=== PATIENT | male | born 1965 | race Two or more races ===

== ENCOUNTER → 2017-07-21 | Outpatient (REF) | payer OTHER | LOC: M SFHCLERA 14:27 | PROVIDERS: ATTEND Nurse Practitioner Family | DX: J02.9 Acute pharyngitis, unspecified (principal) ==

== ENCOUNTER → 2018-01-22 | Outpatient (CLI) | payer OTHER | LOC: M WUC 13:35 | DX: M25.551 Pain in right hip (principal); M25.552 Pain in left hip | CPT/HCPCS: 73502 ==

== ENCOUNTER → 2018-09-07 | Outpatient (REF) | payer OTHER | LOC: M SFHCLERA 11:33 | DX: L02.11 Cutaneous abscess of neck (principal) | CPT/HCPCS: 87186 ==

== ENCOUNTER 2018-12-25 08:37 | Day surgery (SDC) | payer OTHER ==
[~2018-12-25] VITALS: Ht 177.8 cm; Wt 127.0 kg
[~2018-12-25 08:37] MED LIST: LIDOCAINE 2% INJ 100 MG/5 ML SDV (FOR ANES.) As Ordered ONE; NS 1,000 ML IV ONE; PROPOFOL 200 MG/20 ML VIAL As Ordered ONE; SERT-155 PO
--- NOTE | 2018-12-25 10:02 | ROOR ---
Patient Name: Osiel Huggins Procedure Date: 12/25/2018 9:39 AM Date of : 1965 Age: 53 Room: [facility] Gender: Male Note Status: Finalized Procedure: Colonoscopy Indications: Screening for colorectal malignant neoplasm Providers: Long Johnson Jr, MD Referring MD: Richard Jacques MD Requesting Provider: Medicines: Propofol per Anesthesia Complications: No immediate complications. Procedure: Pre-Anesthesia Assessment: - Prior to the procedure, a History and Physical was performed, and patient medications and allergies were reviewed. The patient is competent. The risks and benefits of the procedure and the sedation options and risks were discussed with the patient. All questions were answered and informed consent was obtained. Patient identification and proposed procedure were verified by the physician and the nurse in the pre-procedure area and in the procedure room. Mental Status Examination: alert and oriented. Airway Examination: normal oropharyngeal airway and neck mobility. Respiratory Examination: clear to auscultation. CV Examination: normal. ASA Grade Assessment: II - A patient with mild systemic disease. After reviewing the risks and benefits, the patient was deemed in satisfactory condition to undergo the procedure. The anesthesia plan was to use moderate sedation / analgesia (conscious sedation). Immediately prior to administration of medications, the patient was re-assessed for adequacy to receive sedatives. The heart rate, respiratory rate, oxygen saturations, blood pressure, adequacy of pulmonary ventilation, and response to care were monitored throughout the procedure. The physical status of the patient was re-assessed after the procedure. The Colonoscope was introduced through the anus and advanced to the cecum, identified by appendiceal orifice and ileocecal valve. The colonoscopy was performed without difficulty. The patient tolerated the procedure well. The quality of the bowel preparation was adequate. Findings: The sigmoid colon, cecum, appendiceal orifice and ileocecal valve appeared normal. Five polyps were found in the rectum, recto-sigmoid colon, descending colon, transverse colon and ascending colon. The polyps were small in size. These polyps were removed with a cold snare. Resection and retrieval were complete. Impression: - The sigmoid colon, cecum, appendiceal orifice and ileocecal valve are normal. - Five small polyps in the rectum, at the recto-sigmoid colon, in the descending colon, in the transverse colon and in the ascending colon, removed with a cold snare. Resected and retrieved. Recommendation: - Discharge patient to home (ambulatory). - Discharge patient to home (ambulatory). - Repeat colonoscopy in 5 years for surveillance. Long Johnson MD Long Johnson Jr, MD 12/25/2018 10:02:04 AM Electronically signed by Long Johnson Jr, MD Number of Addenda: 0 Note Initiated On: 12/25/2018 9:39 AM Estimated Blood Loss: Estimated blood loss: none.
[2018-12-25 10:15] VITALS: BP 148/92
== END 2018-12-25 10:37 | disposition home or self-care (01) ==
LOC: M OPP 08:37
PROVIDERS: ATTEND Surgery
DX: K62.1 Rectal polyp (principal); D12.7 Benign neoplasm of rectosigmoid junction; D12.4 Benign neoplasm of descending colon; D12.3 Benign neoplasm of transverse colon; D12.2 Benign neoplasm of ascending colon; Z12.11 Encounter for screening for malignant neoplasm of colon

== ENCOUNTER 2019-02-08 15:41 | Inpatient (IN) | payer OTHER ==
[~2019-02-08] VITALS: Ht 180.3 cm; Wt 127.6 kg
[~2019-02-08 15:41] MED LIST changes: -LIDOCAINE 2% INJ 100 MG/5 ML SDV (FOR ANES.) As Ordered ONE; -NS 1,000 ML IV ONE; -PROPOFOL 200 MG/20 ML VIAL As Ordered ONE
[2019-02-08 16:12] LABS: BASO % 0.4 % (0.0-1.0); EOS % 0.2 % (0.0-3.0); HEMATOCRIT 46.4 % (42.0-52.0); HEMOGLOBIN 16.1 g/dl (13.5-17.5); LYMPH # 1.4 10^3/uL (1.5-4.5); LYMPH % 14.7 % (24.0-44.0); MEAN CORPUSCULAR HGB CONC 34.7 g/dl (32.0-36.5); MEAN CORPUSCULAR VOLUME 98.1 fl (80.0-96.0); MONO % 11.2 % (0.0-5.0); NEUTROPHILS # 6.7 10^3/uL (1.8-7.7); NEUTROPHILS % 73.1 % (36.0-66.0); PLATELET COUNT, AUTOMATED 134 10^3/uL (150-450); RED BLOOD COUNT 4.73 10^6/uL (4.30-6.10); WHITE BLOOD COUNT 9.2 10^3/uL (4.0-10.0)
[2019-02-08 16:26] LABS: INR 1.07
--- NOTE | 2019-02-08 16:27 | REP ---
Portable chest x-ray: Sitting AP view. History: Dyspnea and cough. Comparison study: April 13, 2011. Findings: EKG monitoring electrodes overlie the chest. Heart size is normal. Pulmonary vasculature is not increased. There are granulomatous calcifications in the right lung unchanged. Pleural angles are sharp. No significant bony abnormality. Impression: No active disease. Electronically Signed by Bebeto Case MD 02/08/2019 04:19 P
[2019-02-08 16:58] LABS: ALBUMIN 3.8 GM/DL (3.2-5.2); ALT/SGPT 37 U/L (12-78); BILIRUBIN,DIRECT 0.2 MG/DL (0.0-0.2); BILIRUBIN,TOTAL 0.9 MG/DL (0.2-1.0); BLOOD UREA NITROGEN 12 MG/DL (7-18); CARBON DIOXIDE LEVEL 23 MEQ/L (21-32); CHLORIDE LEVEL 111 MEQ/L (98-107); CPK CREATINE PHOSPHOKINASE 191 U/L (39-308); CREATININE FOR GFR 0.75 MG/DL (0.70-1.30); GLOMERULAR FILTRATION RATE > 60.0 (>56); GLUCOSE, FASTING 98 MG/DL (70-100); MB/CK RELATIVE INDEX 3.35 (< OR =4); NT-PRO BNP 107 PG/ML (<125); SODIUM LEVEL 142 MEQ/L (136-145); THYROID STIMULATING HORMONE 0.779 uIU/ML (0.358-3.740); TOTAL PROTEIN 6.9 GM/DL (6.4-8.2); TROPONIN I 2.91 NG/ML (< 0.10)
[2019-02-08] MEDS ORDERED: HEPARIN DRIP 25,000 UNITS in APPROPRIATE DILUENT 1 EA IV SCH ×3 (17:36→22:10)
[2019-02-08] MEDS ORDERED: HEPARIN SOD (PORCINE) 5000 UNITS/ML VIAL IV ONE (17:45)
--- NOTE | 2019-02-08 17:50 | REPVR ---
EXAM: US Duplex Left Lower Extremity Veins, Limited EXAM DATE/TIME: 02/08/2019 5:18 PM CLINICAL HISTORY: 53 years old, male; Signs and symptoms; Edema, localized; Lower extremity, left; Additional info: Swelling/sob TECHNIQUE: Imaging protocol: Real-time Duplex ultrasound of the Left Lower Extremity with 2-D rubio scale, color Doppler flow and spectral waveform analysis. Limited exam focused on the left lower extremity veins. COMPARISON: No relevant prior studies available. FINDINGS: Left deep veins: There is severe occlusive thrombosis of the left mid and lower superficial femoral vein/femoral vein. This occlusive thrombus extends throughout the popliteal vein with no evidence of venous return. This is very severe acute thrombosis Left superficial veins: Venous return of the greater saphenous vein. Soft tissues: Unremarkable. IMPRESSION: Acute deep venous thrombosis left leg. Severe occlusive thrombus filling and distending the left femoral vein from the mid thigh to the knee. Acute thrombosis filling the popliteal vein with no venous return through the popliteal region. Electronically signed by: Trell Chong On 02/08/2019 17:49:45 PM
[2019-02-08] MEDS ORDERED: ISOVUE-370 76% 100ML VIAL (Q9967) As Ordered ONE (18:59)
--- NOTE | 2019-02-08 19:45 | REPVR ---
EXAM: CT Angiography Chest With Contrast EXAM DATE/TIME: 02/08/2019 7:22 PM CLINICAL HISTORY: 53 years old, male; Signs and symptoms; Shortness of breath; Additional info: Pe TECHNIQUE: Imaging protocol: Axial computed tomographic angiography images of the chest with intravenous contrast using CT angiography protocol. Coronal and sagittal reformatted images were created and reviewed. 3D rendering: MIP reconstructed images were created and reviewed. Radiation optimization: All CT scans at this facility use at least one of these dose optimization techniques: automated exposure control; mA and/or kV adjustment per patient size (includes targeted exams where dose is matched to clinical indication); or iterative reconstruction. Contrast material: ISOVUE 370; Contrast volume: 75 ml; Contrast route: IV; COMPARISON: CR PORTABLE CHEST X-RAY 02/08/2019 3:55 PM FINDINGS: Pulmonary arteries: There is a large saddle embolus in the right main pulmonary artery. This extends into the right upper lobe pulmonary artery and right middle and lower lobe pulmonary arteries. Emboli are noted at the pulmonary arteries right posterior lung base as well. There is a large saddle embolus at the left main pulmonary artery with extension into pulmonary artery branches to the lingula and left lower lobe. Emboli extend into the pulmonary arterial branches at the left lung base as well. This is very extensive acute pulmonary embolus. Aorta: Normal. No aortic aneurysm. No aortic dissection. Lungs: There are 3 scattered calcified granulomas in the right ranging in size from 6 mm to 1.2 CM. Pleural space: Normal. No pneumothorax. No pleural effusion. Heart: There is opacification of the aortic arch the heart is top normal in size. There is no pericardial effusion. Intraperitoneal space: There is a large calcified posterior osteophyte T5-T6 causing severe compression on the thecal sac. Lymph nodes: Calcified lymph nodes noted right left hilum possibly due to previous TB exposure. Bones/joints: Unremarkable. No acute fracture. Soft tissues: Unremarkable. IMPRESSION: Severe bilateral acute pulmonary emboli. Bilateral large saddle emboli identified right and left main pulmonary arteries with suprahilar and infrahilar extension of thrombus. Electronically signed by: Trell Chong On 02/08/2019 19:45:08 PM
[2019-02-08] MEDS ORDERED: NEXI20CA33 PO (20:10)
[2019-02-08] MEDS ORDERED: ACET25TA12 PO (20:10)
[2019-02-08] MEDS ORDERED: ACETAMINOPHEN TAB 650MG DOSE (2X325MG) PO PRN (21:00)
[2019-02-08] MEDS ORDERED: MAALOX 30 ML SUSP *UDC PO PRN (21:00)
[2019-02-08] MEDS ORDERED: HEPARIN SOD (PORCINE) 5000 UNITS/ML VIAL IV PRN (21:00)
[2019-02-08] MEDS: NS 1,000 ML IV SCH ×2 (21:00→21:36)
[2019-02-08] MEDS ORDERED: MOM 30ML SUSPENSION UDC PO PRN (21:00)
[2019-02-08] MEDS: DOCUSATE SODIUM 100 MG CAP PO SCH (21:00)
--- NOTE | 2019-02-08 22:15 | HPEPDOC ---
General Date of Admission February 08, 2019 at 20:49 Chief Complaint The patient is a 53-year-old male admitted with a reason for visit of Pulmonary Embolism. 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 Pt has no personal or family hx/o bleeding or clotting disorder. Lives active lifestyle. In the ER, pt was found to have extensive DVT on the eft leg and bilateral saddle pulmonary emboli. Interestingly, he has good BP, normal HR and normal O2 sat in RA. Pt denies chest pain, dizziness or syncope. A STAT echo done in the ER and reported to ER by Dr. Bowman: dilated LV, dilated IVC and elevated pulmonary artery pressure 64. Troponin is elevated at 2.91. Pt has no clinical signs of heart failure. Spoke with Dr. Kern: no indication for systemic thrombolysis. A STAT consult has been requested. Spoke with Dr. Nick: pt to have IVC filter followed by catheter-guided thrombolysis in the morning. Home Medications Scheduled Sertraline HCl (Sertraline HCl) 50 Mg Tab, 50 MG PO DAILY, (Reported) Scheduled PRN Acetaminophen/Diphenhydramine (Acetaminophen Pm Caplet) 1 Each Tablet, 2 TAB PO QHS PRN for SLEEP, (Reported) Esomeprazole Magnesium (Nexium 24Hr) 20 Mg Capsule.dr, 20 MG PO DAILY PRN for HEARTBURN, (Reported) Allergies Coded Allergies: phenobarbital (Verified Allergy, Unknown, as a child, 12/24/18) Past Medical History Medical History Depression Surgical History Pineal cyst removal Family History Significant Family History: No pertinent family hx Social History * Smoker: Denies Alcohol: occationally Drugs: marijuana A-FIB/CHADSVASC A-FIB History Current/History of A-Fib/PAF?: No Review of Systems Constitutional: Denies: Chills, Fever, Malaise Eyes: Denies: Pain ENT: Denies: Head Aches Skin: Denies: Rash, Lesions, Bruising Pulmonary: Reports: Dyspnea; Denies: Cough Cardiovascular: Denies: Chest Pain, Palpitations, Edema Gastrointestinal: Denies: Nausea, Vomiting, Abdominal Pain Hematologic: Denies: Bleeding Excessively Musculoskeletal: Denies: Neck Pain, Back Pain Neurological: Denies: Weakness, Numbness Psych: Reports: Mood Normal; Denies: Anxiety Physical Examination General Exam: Positive: Alert, Cooperative, No Acute Distress Eye Exam: Positive: PERRLA ENT Exam: Positive: Atraumatic Neck Exam: Positive: Supple; Negative: JVD Chest Exam: Positive: Clear to auscultation, Normal air movement Heart Exam: Positive: Rate Normal, Regular Rhythm; Negative: Murmurs Abdomen Exam: Positive: Normal bowel sounds, Soft, Tenderness Extremity Exam: Positive: Normal pulses; Negative: Edema Skin Exam: Negative: Rash, Breakdown, Lesion Neuro Exam: Positive: Normal Speech, Strength at 5/5 X4 ext, Normal Tone Psych Exam: Positive: Mental status NL, Mood NL Vital Signs Vital Signs Date Time Temp Pulse Resp B/P (MAP) Pulse Ox O2 Delivery O2 Flow Rate FiO2 02/08/19 21:00 Room Air 02/08/19 21:00 98.1 84 18 161/96 (117) 95 Laboratory Data Labs 24H Laboratory Tests 2 02/08/19 16:07: Immature Granulocyte % (Auto) 0.4, White Blood Count 9.2, Red Blood Count 4.73, Hemoglobin 16.1, Hematocrit 46.4, Mean Corpuscular Volume 98.1H, Mean Corpuscular Hemoglobin 34.0H, Mean Corpuscular Hemoglobin Concent 34.7, Red Cell Distribution Width 12.4, Platelet Count 134L, Neutrophils (%) (Auto) 73.1H, Lymphocytes (%) (Auto) 14.7L, Monocytes (%) (Auto) 11.2H, Eosinophils (%) (Auto) 0.2, Basophils (%) (Auto) 0.4, Neutrophils # (Auto) 6.7, Lymphocytes # (Auto) 1.4L, Monocytes # (Auto) 1.0H, Eosinophils # (Auto) 0.0, Basophils # (Auto) 0.0, Nucleated Red Blood Cells % (auto) 0.0, Prothrombin Time 14.0, Prothromb Time International Ratio 1.07, Anion Gap 8, Glomerular Filtration Rate > 60.0, Calcium Level 9.0, Aspartate Amino Transf (AST/SGOT) 32, Alanine Aminotran sferase (ALT/SGPT) 37, Alkaline Phosphatase 107, Total Bilirubin 0.9, Direct Bilirubin 0.2, Total Creatine Kinase 191, Creatine Kinase MB 6.0H, Creatine Kinase MB Relative Index 3.35, Troponin I 2.91*H, IL-Lcb-F-Type Natriuretic Peptide 107, Total Protein 6.9, Albumin 3.8, Albumin/Globulin Ratio 1.23, Thyroid Stimulating Hormone (TSH) 0.779 CBC/BMP Laboratory Tests 02/08/19 16:07 Red Blood Count 4.73, Mean Corpuscular Volume 98.1 H, Mean Corpuscular Hemoglobin 34.0 H, Mean Corpuscular Hemoglobin Concent 34.7, Red Cell Distribution Width 12.4, Neutrophils (%) (Auto) 73.1 H, Lymphocytes (%) (Auto) 14.7 L, Monocytes (%) (Auto) 11.2 H, Eosinophils (%) (Auto) 0.2, Basophils (%) (Auto) 0.4, Neutrophils # (Auto) 6.7, Lymphocytes # (Auto) 1.4 L, Monocytes # (Auto) 1.0 H, Eosinophils # (Auto) 0.0, Basophils # (Auto) 0.0 Assessment/Plan Unprovoked Bilateral Saddle Pulmonary Emboli with signs of Right Heart Strain on Echo and by Elevated Troponin; without clinical signs of Heart Failure or Hemodynamic Instability, or Hypoxia - Admit to ICU; Monitor hemodynamic closely. Pulmonary Consult - IV Heparin per protocol - IV Fluid - Spoke with Dr. Nick: pt to have IVC filter followed by catheter-guided thrombolysis in the morning - Care plan discussed with pt and family Plan / VTE VTE Prophylaxis Ordered?: No VTE Exclusion Mechanical Proph: Patient on IV Heparin VTE Exclusion Pharmacological: IV Heparin Therapy MARCO ANTONIO LUNSFORD MD February 08, 2019 22:15
[2019-02-08 22:19] LABS: C REACTIVE PROTEIN QUANTITATIV 0.69 MG/DL (0.00-0.30)
[2019-02-08 22:35] LABS: ERYTHROCYTE SEDIMENTATION RATE 1 mm/hr (0-20)
[2019-02-08 23:18] LABS: MB/CK RELATIVE INDEX 3.11 (< OR =4); TROPONIN I 1.51 NG/ML (< 0.10)
[2019-02-08 23:19] VITALS: BP 174/92
[2019-02-09] VITALS (20 sets, daily range): BP systolic 135–174; BP diastolic 70–101
[2019-02-09 05:54] LABS: HEMATOCRIT 41.7 % (42.0-52.0); HEMOGLOBIN 14.4 g/dl (13.5-17.5); MEAN CORPUSCULAR HEMOGLOBIN 33.4 pg (27.0-33.0); MEAN CORPUSCULAR HGB CONC 34.5 g/dl (32.0-36.5); MEAN CORPUSCULAR VOLUME 96.8 fl (80.0-96.0); PLATELET COUNT, AUTOMATED 128 10^3/uL (150-450); RED BLOOD COUNT 4.31 10^6/uL (4.30-6.10); WHITE BLOOD COUNT 7.3 10^3/uL (4.0-10.0)
--- NOTE | 2019-02-09 05:54 | ECGEPIP ---
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
[2019-02-09] MEDS ORDERED: HEPARIN 1,000 UNITS/ML 10ML VIAL (FOR RADIOLOGY& DIALYSIS ONLY) As Ordered ONE (06:13)
[2019-02-09] MEDS ORDERED: BUPIVACAINE HCL 0.5% 10 ML VIAL As Ordered ONE ×3 (06:13→08:27)
[2019-02-09] MEDS ORDERED: LIDOCAINE 2% MDV 20 ML VIAL As Ordered ONE ×3 (06:14→08:27)
[2019-02-09] MEDS ORDERED: ISOVUE-300 61% 100ML VIAL (Q9967) As Ordered ONE (06:14)
[2019-02-09] MEDS ORDERED: ALTEPLASE 2 MG/2 ML VIAL (J2997 PER 1MG) As Ordered ONE (06:15)
--- NOTE | 2019-02-09 06:25 | ECHO ---
DATE OF STUDY: 02/08/2019 REFERRING PHYSICIAN: Dr. Salvador Thomas INDICATION: Dyspnea. HEIGHT: 180 cm. WEIGHT: 129 kg. 2-D MEASUREMENTS: Ventricular septum: 1.13 cm Posterior wall: 0.95 cm Left ventricle diastole: 4.9 cm Left atrium: 3.7 cm Aortic root: 3.9 cm Inferior vena cava: 2.1 cm with marked reduction of respiratory variation DOPPLER MEASUREMENTS: Aortic valve velocity: 105 cm/sec LVOT velocity: 97.5 cm/sec LVOT VTI: 17.1 cm Mitral E velocity: 42.7 cm/sec Mitral A velocity: 75.7 cm/sec Mitral deceleration time: 204 ms Very mild tricuspid regurgitation Estimated right ventricular systolic pressure at least 64 mmHg assuming a right atrial pressure of at least 20 mmHg Pulmonary artery systolic pressure 52-57 mmHg by pulmonary acceleration time method MITRAL ANNULAR TISSUE DOPPLER: E prime septal: 6.2 cm/sec E prime lateral: 6.4 cm/sec DESCRIPTION: The rhythm was sinus. Image quality was fair. This was a 2-D, M-mode, color flow Doppler and pulse wave Doppler examination and included mitral annular tissue Doppler. CONCLUSIONS: 1. Suggestive of severe elevation of estimated right ventricle systolic pressure (at least 64 mmHg) assuming right atrial pressure of at least 20 mmHg. Pulmonary artery pressure was moderate and estimated to be 52-57 mmHg by pulmonary acceleration time method. At last mild right ventricle dilatation with preserved right ventricle systolic function. Moderate right atrial dilatation. 2. Inferior vena cava dilatation with marked reduction of respiratory variation suggestive of elevated central venous pressure of at least 20 mmHg. 3. Normal left ventricle internal dimensions and wall thickness. Normal regional LV wall motion and wall thickening. Normal LV systolic function. LVEF 60% by visual esimate. Grade1 LV diastolic dysfunction (impaired relaxation filling pattern). 4. Mild dilatation of the aortic root at the level of the sinus of Valsalva (3.9 cm). 5. Very mild aortic valve sclerosis of a 3-cuspid aortic valve. No aortic regurgitation. ADDITIONAL COMMENTS: Results of the echocardiogram Doppler were explained verbally to Dr. Salvador Thomas.
[2019-02-09 06:31] LABS: ALBUMIN 3.1 GM/DL (3.2-5.2); ALT/SGPT 27 U/L (12-78); BILIRUBIN,TOTAL 1.4 MG/DL (0.2-1.0); BLOOD UREA NITROGEN 9 MG/DL (7-18); CALCIUM LEVEL 8.9 MG/DL (8.5-10.1); CARBON DIOXIDE LEVEL 25 MEQ/L (21-32); CHLORIDE LEVEL 107 MEQ/L (98-107); CREATININE FOR GFR 0.68 MG/DL (0.70-1.30); GLOMERULAR FILTRATION RATE > 60.0 (>56); GLUCOSE, FASTING 90 MG/DL (70-100); POTASSIUM SERUM 3.8 MEQ/L (3.5-5.1); SODIUM LEVEL 138 MEQ/L (136-145); TOTAL PROTEIN 6.6 GM/DL (6.4-8.2)
[2019-02-09] MEDS ORDERED: MIDAZOLAM INJ 2 MG/2 ML VIAL (J2250) As Ordered ONE (06:34)
[2019-02-09] MEDS ORDERED: fentaNYL 100 MCG/2 ML INJECTION (J3010) As Ordered ONE (06:34)
[2019-02-09 06:35] LABS: MB/CK RELATIVE INDEX 2.72 (< OR =4); TROPONIN I 0.57 NG/ML (< 0.10)
[2019-02-09] MEDS: ALTEPLASE RECOMBINANT 25 MG in NS 225 ML IV SCH (06:45)
[2019-02-09] MEDS ORDERED: ALTEPLASE RECOMBINANT 10 MG in APPROPRIATE DILUENT 1 EA IV ONE (06:45)
[2019-02-09] MEDS ORDERED: HEPARIN DRIP 25,000 UNITS in APPROPRIATE DILUENT 1 EA IV SCH ×2 (07:00→10:00)
[2019-02-09] MEDS: PANTOPRAZOLE 40MG TAB (PROTONIX) PO SCH (10:51)
[2019-02-09] MEDS: SERTRALINE HCL 50 MG TAB PO SCH (10:51)
[2019-02-09] MEDS: DOCUSATE SODIUM 100 MG CAP PO SCH ×2 (10:52→20:00)
[2019-02-09] MEDS ORDERED: SODIUM CHLORIDE 0.9% INJ 10 ML SYR IV PRN (12:00)
[2019-02-09 12:27] LABS: HEMATOCRIT 46.4 % (42.0-52.0); HEMOGLOBIN 15.9 g/dl (13.5-17.5)
--- NOTE | 2019-02-09 13:16 | IPNPDOC ---
Subjective Date Seen The patient was seen on 02/09/19. Subjective Chief Complaint/HPI Had some oozing from the PICC line site on the right arm so has a pressure bandage on that arm. Has a midline on the left. Denies any SOB or chest pain. Has pain and swelling in the left calf but controlled. No nausea or vomiting or diarrhea. No cough or phlegm Objective Physical Examination General Exam: Positive: Alert, Cooperative, No Acute Distress Eye Exam: Positive: PERRLA ENT Exam: Positive: Atraumatic Neck Exam: Positive: Supple; Negative: JVD Chest Exam: Positive: Clear to auscultation, Normal air movement Heart Exam: Positive: Rate Normal, Regular Rhythm; Negative: Murmurs Abdomen Exam: Positive: Normal bowel sounds, Soft, Tenderness Extremity Exam: Positive: Normal pulses; Negative: Edema Skin Exam: Negative: Rash, Breakdown, Lesion Neuro Exam: Positive: Normal Speech, Strength at 5/5 X4 ext, Normal Tone Psych Exam: Positive: Mental status NL, Mood NL Assessment /Plan Assessment 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 Pt has no personal or family hx/o bleeding or clotting disorder. Lives active lifestyle. He did drive to [facility] over the spring with 2 stops in between. And there they did a lot of walking. In the ER, pt was found to have extensive DVT on the Left leg and bilateral saddle pulmonary emboli. A STAT echo done in the ER and reported to ER by Dr. Hartmann: dilated LV, dilated IVC and elevated pulmonary artery pressure 64. Troponin is elevated at 2.91. Pt has no clinical signs of heart failure. Patient was admitted for Pulmonary embolism and acute DVT. Pulmonary embolism and acute DVT seems to be unprovoked DVT S/p IVC filter on 02/09/19 followed by Intraclot catheter-guided thrombolysis started this morning on 02/09/19 on heparin and alteplace infusion Hypercoagulable work up has been sent. will be going home with oral anticoagulants. Fibrinogen levels q 6h, aptt and Hb/HCT q6 hours. Acute pulmonary hypertension due to pulmonary embolism Elevated troponin due to right ventricular strain due to pulmonary embolism. DVT on heparin infusion and has ivc filter in place. Plan/VTE VTE Prophylaxis Ordered?: No VTE Exclusion Mechanical Proph: Patient on IV Heparin VTE Exclusion Pharmacological: IV Heparin Therapy VS, I&O, 24H, Terrance Vital Signs/I&O Vital Signs Date Time Temp Pulse Resp B/P (MAP) Pulse Ox O2 Delivery O2 Flow Rate FiO2 02/09/19 09:34 99.6 66 20 159/83 (108) 97 02/08/19 22:39 Room Air I&O- Last 24 Hours up to 6 AM 02/09/19 06:00 Intake Total 880 ml Output Total 400 ml Balance 480 ml Laboratory Data 24H LABS Laboratory Tests 2 02/08/19 16:07: Immature Granulocyte % (Auto) 0.4, White Blood Count 9.2, Red Blood Count 4.73, Hemoglobin 16.1, Hematocrit 46.4, Mean Corpuscular Volume 98.1H, Mean Corpuscular Hemoglobin 34.0H, Mean Corpuscular Hemoglobin Concent 34.7, Red Cell Distribution Width 12.4, Platelet Count 134L, Neutrophils (%) (Auto) 73.1H, Lymphocytes (%) (Auto) 14.7L, Monocytes (%) (Auto) 11.2H, Eosinophils (%) (Auto) 0.2, Basophils (%) (Auto) 0.4, Neutrophils # (Auto) 6.7, Lymphocytes # (Auto) 1.4L, Monocytes # (Auto) 1.0H, Eosinophils # (Auto) 0.0, Basophils # (Auto) 0.0, Nucleated Red Blood Cells % (auto) 0.0, Erythrocyte Sedimentation Rate 1, Prot hrombin Time 14.0, Prothromb Time International Ratio 1.07, Anion Gap 8, Glomerular Filtration Rate > 60.0, Calcium Level 9.0, Aspartate Amino Transf (AST/SGOT) 32, Alanine Aminotransferase (ALT/SGPT) 37, Alkaline Phosphatase 107, Total Bilirubin 0.9, Direct Bilirubin 0.2, Total Creatine Kinase 191, Creatine Kinase MB 6.0H, Creatine Kinase MB Relative Index 3.35, Troponin I 2.91*H, C- Reactive Protein, Quantitative 0.69H, DZ-Wtt-Y-Type Natriuretic Peptide 107, Total Protein 6.9, Albumin 3.8, Albumin/Globulin Ratio 1.23, Thyroid Stimulating Hormone (TSH) 0.779 02/08/19 22:18: Total Creatine Kinase 167, Creatine Kinase MB 5.0H, Creatine Kinase MB Relative Index 3.11, Troponin I 1.51#H 02/08/19 22:25: Activated Partial Thromboplast Time 52.8H 02/09/19 05:38: Nucleated Red Blood Cells % (auto) 0.0, Anion Gap 6L, Glomerular Filtration Rate > 60.0, Calcium Level 8.9, Aspartate Amino Transf (AST/SGOT) 27, Alanine Aminotransferase (ALT/SGPT) 27, Alkaline Phosphatase 96, Total Bilirubin 1.4#H, Total Creatine Kinase 136, Creatine Kinase MB 4.0H, Creatine Kinase MB Relative Index 2.72, Troponin I 0.57#H, Total Protein 6.6, Albumin 3.1L, Albumin/Globulin Ratio 0.89L, Activated Partial Thromboplast Time 65.2H, Blood Urea Nitrogen 9, Creatinine 0.68L, Sodium Level 138, Potassium Level 3.8, Chloride Level 107, Carbon Dioxide Level 25 02/09/19 10:03: 02/09/19 12:04: Activated Partial Thromboplast Time 40.8H, Fibrinogen 315 CBC/BMP Laboratory Tests 02/08/19 16:07 Red Blood Count 4.73, Mean Corpuscular Volume 98.1 H, Mean Corpuscular Hemoglobin 34.0 H, Mean Corpuscular Hemoglobin Concent 34.7, Red Cell Distribution Width 12.4, Neutrophils (%) (Auto) 73.1 H, Lymphocytes (%) (Auto) 14.7 L, Monocytes (%) (Auto) 11.2 H, Eosinophils (%) (Auto) 0.2, Basophils (%) (Auto) 0.4, Neutrophils # (Auto) 6.7, Lymphocytes # (Auto) 1.4 L, Monocytes # (Auto) 1.0 H, Eosinophils # (Auto) 0.0, Basophils # (Auto) 0.0 02/09/19 05:38 Red Blood Count 4.31, Mean Corpuscular Volume 96.8 H, Mean Corpuscular Hemoglobin 33.4 H, Mean Corpuscular Hemoglobin Concent 34.5, Red Cell Distri bution Width 12.4, Calcium Level 8.9, Aspartate Amino Transf (AST/SGOT) 27, Alanine Aminotransferase (ALT/SGPT) 27, Alkaline Phosphatase 96, Total Bilirubin 1.4 #H, Total Protein 6.6, Albumin 3.1 L 02/09/19 12:04 ALDEN SOSA MD February 09, 2019 13:16
--- NOTE | 2019-02-09 14:04 | CR.PDOC ---
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 Pt has no personal or family hx/o bleeding or clotting disorder. Lives active lifestyle. He did drive to [facility] over the spring with 2 stops in between, while there reported did a lot of walking. In the ER, pt was found to have extensive DVT on the Left leg and bilateral saddle pulmonary emboli. A STAT echo done in the ER and reported to ER by Dr. Hartmann: dilated LV, dilated IVC and elevated pulmonary artery pressure 64. Troponin is elevated at 2.91. Pt has no clinical signs of heart failure. Patient was admitted for Pulmonary embolism and acute DVT. vascular Surgery was consulted for DVT/PE. 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 No prior h/o bleeding. PE: GEN: 53yoM, appears stated age. HEENT: Normocephalic, atraumatic. No facial asymmetry. Moist mucous membranes. CHEST: Regular rate and rhythm, +S1, +S2 LUNGS: Clear to auscultation bilaterally. No wheezes, rales, or rhonchi. Breathing appears symmetric and easy. ABD: Round, soft, non-tender, non-distended. +Bowel sounds throughout. No rebound or guarding. EXT: No lower extremity edema appreciated. SKIN: Kappa, dry, warm. Capillary refill <2sec. No rashes. NEURO: Alert and oriented x 3. No focal deficits appreciated. CTA chest Severe bilateral acute pulmonary emboli. Bilateral large saddle emboli identified right and left main pulmonary arteries with suprahilar and infrahilar extension of thrombus. Electronically signed by: Trell Chong On 02/08/2019 19:45:08 PM LE Acute deep venous thrombosis left leg. Severe occlusive thrombus filling and distending the left femoral vein from the mid thigh to the knee. Acute thrombosis filling the popliteal vein with no venous return through the popliteal region. Electronically signed by: Trell Chong On 02/08/2019 17:49:45 PM TTE 02/08/19 CONCLUSIONS: 1. Suggestive of severe elevation of estimated right ventricle systolic pressur e (at least 64 mmHg) assuming right atrial pressure of at least 20 mmHg. Pulmonary artery pressure was moderate and estimated to be 52-57 mmHg by pulmonary acceleration time method. At last mild right ventricle dilatation with preserved right ventricle systolic function. Moderate right atrial dilatation. 2. Inferior vena cava dilatation with marked reduction of respiratory variation suggestive of elevated central venous pressure of at least 20 mmHg. 3. Normal left ventricle internal dimensions and wall thickness. Normal regional LV wall motion and wall thickening. Normal LV systolic function. LVEF 60% by visual esimate. Grade1 LV diastolic dysfunction (impaired relaxation filling pattern). 4. Mild dilatation of the aortic root at the level of the sinus of Valsalva (3.9 cm). 5. Very mild aortic valve sclerosis of a 3-cuspid aortic valve. No aortic regurgitation. 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 Pt has no personal or family hx/o bleeding or clotting disorder. Lives active lifestyle. He did drive to [facility] over the spring with 2 stops in between, while there reported did a lot of walking. In the ER, pt was found to have extensive DVT on the Left leg and bilateral saddle pulmonary emboli. A STAT echo done in the ER and reported to ER by Dr. Hartmann: dilated LV, dilated IVC and elevated pulmonary artery pressure 64. Troponin is elevated at 2.91. Pt has no clinical signs of heart failure. Patient was admitted for Pulmonary embolism and acute DVT. Vascular Surgery was consulted. Pulmonary embolism and acute DVT. S/P IVC filter 02/09/19 followed by catheter- guided thrombolysis 02/09/[address] Nick. Heparin and Alteplase gtt as per Dr Nick. Hypercoagulable work up pending. Fibrinogen levels, PTT, CBC q 6h. Monitor. Acute pulmonary hypertension due to pulmonary embolism TTE as above. Elevated troponin due to right ventricular strain due to pulmonary embolism. repeat troponin trending downward. Vital Signs/I&O Vital Signs Date Time Temp Pulse Resp B/P (MAP) Pulse Ox O2 Delivery O2 Flow Rate FiO2 5/13/19 09:34 99.6 66 20 159/83 (108) 97 02/08/19 22:39 Room Air I&O- Last 24 Hours up to 6 AM 02/09/19 06:00 Intake Total 880 ml Output Total 400 ml Balance 480 ml Laboratory Data Labs 24H Laboratory Tests 2 02/08/19 16:07: Immature Granulocyte % (Auto) 0.4, White Blood Count 9.2, Red Blood Count 4.73, Hemoglobin 16.1, Hematocrit 46.4, Mean Corpuscular Volume 98.1H, Mean Corpuscular Hemoglobin 34.0H, Mean Corpuscular Hemoglobin Concent 34.7, Red Cell Distribution Width 12.4, Platelet Count 134L, Neutrophils (%) (Auto) 73.1H, L ymphocytes (%) (Auto) 14.7L, Monocytes (%) (Auto) 11.2H, Eosinophils (%) (Auto) 0.2, Basophils (%) (Auto) 0.4, Neutrophils # (Auto) 6.7, Lymphocytes # (Auto) 1.4L, Monocytes # (Auto) 1.0H, Eosinophils # (Auto) 0.0, Basophils # (Auto) 0.0, Nucleated Red Blood Cells % (auto) 0.0, Erythrocyte Sedimentation Rate 1, Prothrombin Time 14.0, Prothromb Time International Ratio 1.07, Anion Gap 8, Glomerular Filtration Rate > 60.0, Calcium Level 9.0, Aspartate Amino Transf (AST/SGOT) 32, Alanine Aminotransferase (ALT/SGPT) 37, Alkaline Phosphatase 107, Total Bilirubin 0.9, Direct Bilirubin 0.2, Total Creatine Kinase 191, Creatine Kinase MB 6.0H, Creatine Kinase MB Relative Index 3.35, Troponin I 2.91*H, C- Reactive Protein, Quantitative 0.69H, YD-Ziu-I-Type Natriuretic Peptide 107, Total Protein 6.9, Albumin 3.8, Albumin/Globulin Ratio 1.23, Thyroid Stimulating Hormone (TSH) 0.779 02/08/19 22:18: Total Creatine Kinase 167, Creatine Kinase MB 5.0H, Creatine Kinase MB Relative Index 3.11, Troponin I 1.51#H 02/08/19 22:25: Activated Partial Thromboplast Time 52.8H 02/09/19 05:38: Nucleated Red Blood Cells % (auto) 0.0, Anion Gap 6L, Glomerular Filtration Rate > 60.0, Calcium Level 8.9, Aspartate Amino Transf (AST/SGOT) 27, Alanine Am inotransferase (ALT/SGPT) 27, Alkaline Phosphatase 96, Total Bilirubin 1.4#H, Total Creatine Kinase 136, Creatine Kinase MB 4.0H, Creatine Kinase MB Relative Index 2.72, Troponin I 0.57#H, Total Protein 6.6, Albumin 3.1L, Albumin/Globulin Ratio 0.89L, Activated Partial Thromboplast Time 65.2H, Blood Urea Nitrogen 9, Creatinine 0.68L, Sodium Level 138, Potassium Level 3.8, Chloride Level 107, Carbon Dioxide Level 25 02/09/19 10:03: 02/09/19 12:04: Activated Partial Thromboplast Time 40.8H, Fibrinogen 315 CBC/BMP Laboratory Tests 02/08/19 16:07 Red Blood Count 4.73, Mean Corpuscular Volume 98.1 H, Mean Corpuscular Hemoglobin 34.0 H, Mean Corpuscular Hemoglobin Concent 34.7, Red Cell Distribution Width 12.4, Neutrophils (%) (Auto) 73.1 H, Lymphocytes (%) (Auto) 14.7 L, Monocytes (%) (Auto) 11.2 H, Eosinophils (%) (Auto) 0.2, Basophils (%) (Auto) 0.4, Neutrophils # (Auto) 6.7, Lymphocytes # (Auto) 1.4 L, Monocytes # (Auto) 1.0 H, Eosinophils # (Auto) 0.0, Basophils # (Auto) 0.0 02/09/19 05:38 Red Blood Count 4.31, Mean Corpuscular Volume 96.8 H, Mean Corpuscular Hemoglobin 33.4 H, Mean Corpuscular Hemoglobin Concent 34.5, Red Cell Distribution Width 12.4, Calcium Level 8.9, Aspartate Amino Transf (AST/SGOT) 27, Alanine Aminotransferase (ALT/SGPT) 27, Alkaline Phosphatase 96, Total Bilirubin 1.4 #H, Total Protein 6.6, Albumin 3.1 L 02/09/19 12:04 Allergies Coded Allergies: phenobarbital (Verified Allergy, Unknown, as a child, 12/24/18) Home Medications Scheduled Sertraline HCl (Sertraline HCl) 50 Mg Tab, 50 MG PO DAILY, (Reported) Scheduled PRN Acetaminophen/Diphenhydramine (Acetaminophen Pm Caplet) 1 Each Tablet, 2 TAB PO QHS PRN for SLEEP, (Reported) Esomeprazole Magnesium (Nexium 24Hr) 20 Mg Capsule.dr, 20 MG PO DAILY PRN for HEARTBURN, (Reported) Ceci Serra February 09, 2019 14:04
[2019-02-09] MEDS: HEPARIN DRIP 25,000 UNITS in APPROPRIATE DILUENT 1 EA IV SCH (15:33)
[2019-02-09 18:13] LABS: HEMATOCRIT 43.3 % (42.0-52.0); HEMOGLOBIN 15.1 g/dl (13.5-17.5)
[2019-02-09] MEDS: amLODIPine 5 MG TAB PO SCH (18:15)
[2019-02-09] MEDS: SODIUM CHLORIDE 0.9% INJ 10 ML SYR IV SCH (18:16)
[2019-02-09 18:43] LABS: PARTIAL THROMBOPLASTIN TIME 38.3 SECONDS (25.4-37.6)
[2019-02-09] MEDS: diphenhydrAMINE 50 MG CAP PO PRN (20:00)
--- NOTE | 2019-02-09 21:51 | CR ---
DATE OF CONSULTATION: 02/08/2019 CC: Asked by Dr. Bhardwaj to evaluate Mr. Huggins for a pulmonary embolism. HISTORY OF PRESENT ILLNESS: Mr. Huggins is a 53-year-old white male who was in his usual state of health when he noticed shortness of breath when he went in to take a shower. He also noted some left calf pain. His has had pulmonary emboli and he became suspicious that this may be his problem and he proceeded to the emergency room. He had no cough. No chest pain. He noticed yesterday when he was at his camp that when he walked up to the top of the hill he was more short of breath than he typically is but he did not think much of it. He has otherwise been very active and not had any difficulties. No fevers, chills or drenching night sweats. No paroxysmal nocturnal dyspnea (PND) or orthopnea. He has left lower extremity discomfort. No lower extremity edema. No cough. No hemoptysis. He has not felt otherwise ill. He has no previous history of thromboembolic events. No family history of blood clots. He notes that in December he went to [facility]. He drove to [facility]. He walked around a lot when he was down there. He drove back and probably stopped two times on the way back. He travels a lot but no recent trips where he feels he sat for a long time. 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 No prolonged periods of time of sitting. No injuries to his lower extremities. He has not had any immobilization of his joints or limbs. In the emergency department, he was found to have bilateral pulmonary embolisms and an extensive left deep vein thrombosis (DVT). An echocardiogram had shown a dilated right ventricle and moderate pulmonary hypertension. ALLERGIES: PHENOBARBITAL. MEDICATIONS ON ADMISSION: - acetaminophen/diphenhydramine 2 tablets by mouth at bedtime as needed for sleep - Nexium 20 mg by mouth daily - sertraline 50 mg by mouth daily PAST MEDICAL HISTORY: 1. Allergic rhinitis. 2. Gastroesophageal reflux disease (GERD). 3. Anxiety. FAMILY HISTORY: No family history of thromboembolic disease. There is a family history of an aortic aneurysm. SOCIAL HISTORY: Mr. Huggins is . 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 He does not smoke. Alcohol perhaps one time per week. Drugs: No illicit drug usage. REVIEW OF SYSTEMS: Per history of present illness. The remainder of pertinent review of systems are negative. PHYSICAL EXAMINATION: GENERAL: Mr. Huggins is lying in bed in no acute distress. He can complete full sentences. VITAL SIGNS: Temperature 98.1, pulse 84, respiratory rate 18, blood pressure (BP) 161/96 with a mean arterial pressure (MAP) of 117. SpO2 95% on room air. HEENT: Anicteric. Pupils that are equal, round and reactive to light. Nares: Patent bilaterally. Moist mucosa. Oropharynx: Clear, with no lesions. Moist mucosa, good dentition. NECK: Supple, without thyromegaly or masses. Trachea is midline. Unable to appreciate jugular venous distention (JVD) secondary to body habitus. LYMPHS: Without cervical or supraclavicular lymphadenopathy. CHEST: Normal shaped. LUNGS: Symmetric excursion, good air entry, no wheeze, rhonchi or crackle on tidal excursion. Normal Inspiratory:Expiratory (I:E). No accessory muscle use or retractions. Normal palpation to percussion. CARDIOVASCULAR: Regular rate and rhythm with a normal S1, S2. No murmurs, rubs or gallops appreciated. No heave. ABDOMEN: Positive bowel sounds, soft, nondistended, nontender. No hepatosplenomegaly or masses appreciated. EXTREMITIES: Cool, without clubbing, cyanosis, or significant edema. The left calf is noticeably larger than the right calf. LABORATORY DATA: Complete blood count (CBC) showed a hemoglobin of 16.1, hematocrit 46.4, platelet count 134,000 and a white blood cell (WBC) count 9200 with a differential of 73% neutrophils, 15% lymphocytes, and 11% monocytes. Chemistries showed a sodium of 142, potassium 4.0, chloride 111, bicarbonate 23, anion gap 8, BUN 12, creatinine 0.8, glucose 98, calcium 9.0, total bilirubin 0.9, AST 32, ALT 37, alkaline phosphatase 107, CK-MB 6.0, troponin I 2.91, proBNP 107, total protein 6.9, albumin 3.8, thyroid-stimulating hormone (TSH) 0.78. INR 1.07. I reviewed his chest x-ray as well as the report. That x-ray showed normal appearing cardiac silhouette and pulmonary vascular shadows, a normal appearing mediastinal region. Normal inflation. No acute infiltrates. I reviewed the vascular ultrasound report which was read as showing acute deep vein thrombosis (DVT) in the left leg with severe occlusive thrombus filling and distending the left femoral vein from the midthigh to the knee. Acute thrombolysis filling the popliteal vein with no venous return through the popliteal region. I reviewed his CT pulmonary angiogram as well as a report from earlier today. That CT showed normal cardiac silhouette and pulmonary vasculature. There are extensive bilateral pulmonary emboli. There are scattered granulomas with the largest being 1.2 cm. No mediastinal or pulmonary adenopathy. There are calcifications in the right hilar node. IMPRESSION: 1. Pulmonary emboli / saddle emboli. Based on his history there may have been a predisposing factor with a recent long car ride but I would consider this an unprovoked pulmonary embolism (PE). 2. Large left deep vein thrombosis (DVT). 3. Pulmonary hypertension. I suspect that there is a chronic component to this. It may be secondary to chronic pulmonary embolism (PE) but I also question whether there may be underlying obstructive sleep apnea. 4. Possible underlying obstructive sleep apnea based on body habitus. 5. Gastroesophageal reflux disease (GERD). RECOMMENDATIONS: 1. I spoke with Dr. Bhardwaj and recommended contacting vascular surgery. 2. I spoke to Dr. Bhardwaj again. He had contacted vascular surgery and the plan is to place an inferior vena cava (IVC) filter as well as do lytics via central line tomorrow morning. 3. Agree with intensive care unit (ICU) monitoring. 4. Agree with clear liquid diet. 5. I spoke with Mr. uHggins and his family regarding pulmonary emboli. I discussed with him there would be a minimum of 3 months of anticoagulation. I also told them I tended toward this being unprovoked, although it certainly could have started from his long time period of sitting. 6. Given that I feel this is unprovoked, would send clotting studies. Thank you for this consultation. We will continue to follow with you. CUBA
[2019-02-10] VITALS (33 sets, daily range): BP systolic 74–177; BP diastolic 35–108; PULSE 78
[2019-02-10] MEDS: ALTEPLASE RECOMBINANT 25 MG in NS 225 ML IV SCH ×2 (00:15→23:33)
[2019-02-10 00:18] LABS: HEMATOCRIT 42.7 % (42.0-52.0); HEMOGLOBIN 14.7 g/dl (13.5-17.5)
[2019-02-10 00:29] LABS: PARTIAL THROMBOPLASTIN TIME 35.8 SECONDS (25.4-37.6)
[2019-02-10] MEDS: SODIUM CHLORIDE 0.9% INJ 10 ML SYR IV SCH ×2 (06:00→18:30)
[2019-02-10 06:32] LABS: HEMATOCRIT 43.9 % (42.0-52.0); MEAN CORPUSCULAR HEMOGLOBIN 34.1 pg (27.0-33.0); MEAN CORPUSCULAR HGB CONC 34.2 g/dl (32.0-36.5); MEAN CORPUSCULAR VOLUME 99.8 fl (80.0-96.0); PLATELET COUNT, AUTOMATED 134 10^3/uL (150-450); WHITE BLOOD COUNT 9.4 10^3/uL (4.0-10.0)
[2019-02-10 06:41] LABS: PARTIAL THROMBOPLASTIN TIME 31.6 SECONDS (25.4-37.6)
[2019-02-10 06:48] LABS: BLOOD UREA NITROGEN 12 MG/DL (7-18); CARBON DIOXIDE LEVEL 25 MEQ/L (21-32); CHLORIDE LEVEL 108 MEQ/L (98-107); CREATININE FOR GFR 0.69 MG/DL (0.70-1.30); GLOMERULAR FILTRATION RATE > 60.0 (>56); GLUCOSE, FASTING 102 MG/DL (70-100); POTASSIUM SERUM 4.2 MEQ/L (3.5-5.1); SODIUM LEVEL 139 MEQ/L (136-145)
[2019-02-10] MEDS: DOCUSATE SODIUM 100 MG CAP PO SCH ×2 (09:21→23:34)
[2019-02-10] MEDS: amLODIPine 5 MG TAB PO SCH (09:21)
[2019-02-10] MEDS: SERTRALINE HCL 50 MG TAB PO SCH (09:21)
[2019-02-10] MEDS: PANTOPRAZOLE 40MG TAB (PROTONIX) PO SCH (09:21)
--- NOTE | 2019-02-10 10:22 | IPNPDOC ---
Date Seen The patient was seen on 02/10/19. 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 Pt has no personal or family hx/o bleeding or clotting disorder. Lives active lifestyle. He did drive to [facility] over the spring with 2 stops in between, while there reported did a lot of walking. In the ER, pt was found to have extensive DVT on the Left leg and bilateral saddle pulmonary emboli. A STAT echo done in the ER and reported to ER by Dr. Hartmann: dilated LV, dilated IVC and elevated pulmonary artery pressure 64. Patient was admitted for Pulmonary embolism and acute DVT. Vascular Surgery was consulted for DVT/PE. The pt reports some bleeding for IV site RUE, swelling and ecchymosis Rt upper arm. PMHx: depression GERD PSHX: pineal cyst removal PE: GEN: 53yoM, appears stated age. HEENT: Normocephalic, atraumatic. Moist mucous membranes. CHEST: Regular rate and rhythm, +S1, +S2 LUNGS: Clear to auscultation bilaterally. No wheezes, rales, or rhonchi. Breathing appears symmetric and easy. ABD: Round, soft, non-tender, non-distended. +Bowel sounds throughout. No rebound or guarding. EXT: No lower extremity edema appreciated. SKIN: ecchymotic area Rt upper arm, oozing of blood at IV site Rt upper arm. The pt has nml motor strength and sensation of RUE, consultant intact. radial and ulnar pulses are palpable, but are diminished c/w Left. Rt hand is warm to touch. Good cap refill. NEURO: Alert and oriented x 3. No focal deficits appreciated. CTA chest Severe bilateral acute pulmonary emboli. Bilateral large saddle emboli identified right and left main pulmonary arteries with suprahilar and infrahilar extension of thrombus. Electronically signed by: Trell Chong On 02/08/2019 19:45:08 PM LE Acute deep venous thrombosis left leg. Severe occlusive thrombus filling and distending the left femoral vein from the mid thigh to the knee. Acute thrombosis filling the popliteal vein with no venous return through the popliteal region. Electronically signed by: Trell Chong On 02/08/2019 17:49:45 PM TTE 02/08/19 CONCLUSIONS: 1. Suggestive of severe elevation of estimated right ventricle systolic pressure (at least 64 mmHg) assuming right atrial pressure of at least 20 mmHg. Pulmonary artery pressure was moderate and estimated to be 52-57 mmHg by pulmonary acceleration time method. At last mild right ventricle dilatation with preserved right ventricle systolic function. Moderate right atrial dilatation. 2. Inferior vena cava dilatation with marked reduction of respiratory variation suggestive of elevated central venous pressure of at least 20 mmHg. 3. Normal left ventricle internal dimensions and wall thickness. Normal regional LV wall motion and wall thickening. Normal LV systolic function. LVEF 60% by visual esimate. Grade1 LV diastolic dysfunction (impaired relaxation filling pattern). 4. Mild dilatation of the aortic root at the level of the sinus of Valsalva (3.9 cm). 5. Very mild aortic valve sclerosis of a 3-cuspid aortic valve. No aortic regurgitation. 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 Pt has no personal or family hx/o bleeding or clotting disorder. Lives active lifestyle. He did drive to [facility] over the spring with 2 stops in between, while there reported did a lot of walking. In the ER, pt was found to have extensive DVT on the Left leg and bilateral saddle pulmonary emboli. A STAT echo done in the ER and reported to ER by Dr. Hartmann: dilated LV, dilated IVC and elevated pulmonary artery pressure 64. Troponin is elevated at 2.91. Pt has no clinical signs of heart failure. Patient was admitted for Pulmonary embolism and acute DVT. Vascular Surgery was consulted. Pulmonary embolism and acute DVT. S/P IVC filter 02/09/19 followed by catheter- guided thrombolysis 02/09/[address] Nick. Heparin gtt. PTT 31.6 Alteplase gtt. Fibrinogen 351 Hypercoagulable work up pending. Continue Fibrinogen levels, PTT, CBC q 6h. Monitor. RUE ecchymosis/hematoma. Relayed to Dr Nick, continue to closely monitor. A-FIB/CHADSVASC A-FIB History Current/History of A-Fib/PAF?: No VS, I&O, 24H, Fishbone Vital Signs/I&O Vital Signs Date Time Temp Pulse Resp B/P (MAP) Pulse Ox O2 Delivery O2 Flow Rate FiO2 02/10/19 09:21 152/93 02/10/19 06:00 75 17 95 02/10/19 04:30 98.2 02/08/19 22:39 Room Air I&O- Last 24 Hours up to 6 AM 02/10/19 06:00 Intake Total 1502 ml Output Total 3100 ml Balance -1598 ml Laboratory Data 24H LABS Laboratory Tests 2 02/09/19 12:04: Activated Partial Thromboplast Time 40.8H, Fibrinogen 315 02/09/19 18:01: Activated Partial Thromboplast Time 38.3H, Fibrinogen 336 02/10/19 00:12: Activated Partial Thromboplast Time 35.8, Fibrinogen 327 02/10/19 05:49: Activated Partial Thromboplast Time 31.6, Fibrinogen 351, Nucleated Red Blood Cells % (auto) 0.0, Anion Gap 6L, Glomerular Filtration Rate > 60.0, Blood Urea Nitrogen 12, Creatinine 0.69L, Sodium Level 139, Potassium Level 4.2, Chloride Level 108H, Carbon Dioxide Level 25, Calcium Level 9.0 CBC/BMP Laboratory Tests 02/09/19 12:04 02/09/19 18:01 02/10/19 00:12 02/10/19 05:49 Red Blood Count 4.40, Mean Corpuscular Volume 99.8 H, Mean Corpuscular Hemoglobin 34.1 H, Mean Corpuscular Hemoglobin Concent 34.2, Red Cell Distribution Width 12.2, Calcium Level 9.0 Ceci Serra February 10, 2019 10:22
[2019-02-10 11:42] LABS: BASO % 0.3 % (0.0-1.0); EOS # 0.1 10^3/uL (0.0-0.50); EOS % 0.7 % (0.0-3.0); HEMATOCRIT 44.4 % (42.0-52.0); HEMOGLOBIN 15.2 g/dl (13.5-17.5); LYMPH # 3.2 10^3/uL (1.5-4.5); LYMPH % 24.2 % (24.0-44.0); MEAN CORPUSCULAR HEMOGLOBIN 33.6 pg (27.0-33.0); MEAN CORPUSCULAR HGB CONC 34.2 g/dl (32.0-36.5); MEAN CORPUSCULAR VOLUME 98.2 fl (80.0-96.0); MONO # 1.6 10^3/uL (0.0-0.8); MONO % 12.3 % (0.0-5.0); NEUTROPHILS # 8.2 10^3/uL (1.8-7.7); NEUTROPHILS % 62.1 % (36.0-66.0); PLATELET COUNT, AUTOMATED 155 10^3/uL (150-450); RED BLOOD COUNT 4.52 10^6/uL (4.30-6.10); WHITE BLOOD COUNT 13.2 10^3/uL (4.0-10.0)
[2019-02-10 11:44] LABS: HEMOGLOBIN 15.9 g/dl (13.5-17.5)
[2019-02-10 12:43] LABS: ALBUMIN 3.6 GM/DL (3.2-5.2); ALT/SGPT 26 U/L (12-78); BILIRUBIN,DIRECT 0.2 MG/DL (0.0-0.2); BILIRUBIN,TOTAL 1.2 MG/DL (0.2-1.0); BLOOD UREA NITROGEN 12 MG/DL (7-18); CALCIUM LEVEL 9.3 MG/DL (8.5-10.1); CARBON DIOXIDE LEVEL 24 MEQ/L (21-32); CHLORIDE LEVEL 105 MEQ/L (98-107); CPK CREATINE PHOSPHOKINASE 77 U/L (39-308); CREATININE FOR GFR 0.89 MG/DL (0.70-1.30); GLOMERULAR FILTRATION RATE > 60.0 (>56); GLUCOSE, FASTING 166 MG/DL (70-100); MAGNESIUM LEVEL 2.3 MG/DL (1.8-2.4); MB/CK RELATIVE INDEX 1.69 (< OR =4); PHOSPHORUS LEVEL 2.1 MG/DL (2.5-4.9); POTASSIUM SERUM 4.2 MEQ/L (3.5-5.1); SODIUM LEVEL 136 MEQ/L (136-145); TOTAL PROTEIN 7.2 GM/DL (6.4-8.2); TROPONIN I 0.13 NG/ML (< 0.10)
[2019-02-10 12:50] LABS: PARTIAL THROMBOPLASTIN TIME 23.5 SECONDS (25.4-37.6)
[2019-02-10] MEDS: HEPARIN DRIP 25,000 UNITS in APPROPRIATE DILUENT 1 EA IV SCH (15:16)
[2019-02-10] MEDS ORDERED: NS 1,000 ML IV ONE (17:30)
--- NOTE | 2019-02-10 18:03 | REP ---
CT of the brain without IV contrast: There are no comparisons. There is no hemorrhage. There is no edema, mass effect or midline shift. The cortical stripe is unremarkable. The visualized paranasal sinuses and mastoid air cells are clear. Impression: There is no hemorrhage, acute infarct or mass. Negative CT study of the brain. Electronically Signed by Darren Curiel MD 02/10/2019 05:55 P
--- NOTE | 2019-02-10 18:10 | REP ---
CT of the chest without IV contrast: Comparison is 02/08/2019 with IV contrast. There were multiple bilateral pulmonary emboli on the prior study. The current study is insensitive for pulmonary emboli in the absence of IV contrast. There are no infiltrates. No pulmonary contusion. There are no pleural effusions. There is no hemothorax. There is no mediastinal hematoma. There is a right upper extremity PICC line with the tip in the superior vena cava in satisfactory location. The unenhanced thoracic aorta is unremarkable. Cardiac size is normal. There is no pericardial effusion. There are calcified granulomas in the subcarinal mediastinum and in the right and left chioma and in the right lung. Impression: No mediastinal hematoma. No hemothorax. No pulmonary contusion. Calcified granulomas. Right upper extremity PICC line with the tip in the superior vena cava. Electronically Signed by Darren Curiel MD 02/10/2019 06:01 P
--- NOTE | 2019-02-10 18:20 | REP ---
CT of the abdomen pelvis without IV or bowel contrast: Comparison is 05/12 2007. The study is performed. Contiguous with the chest CT this same date. There is no hemoperitoneum or pneumoperitoneum. The unenhanced hepatic parenchyma, gallbladder, pancreas and spleen are unremarkable. The adrenals and kidneys are unremarkable. Abdominal aorta is unremarkable. There is a vena cava filter. This was not present on the comparison study. There is no retroperitoneal hemorrhage. There is no bowel distension or obstruction. There is sigmoid colon diverticulosis without CT evidence of acute diverticulitis. Pelvis: The appendix is unremarkable. There is no free fluid. The bladder is unremarkable. Impression: No hemoperitoneum. Diverticulosis without diverticulitis. Vena cava filter. In the absence of IV contrast the study is insensitive for intraparenchymal solid organ hematoma. Electronically Signed by Darren Curiel MD 02/10/2019 06:11 P
[2019-02-10] MEDS ORDERED: MORPHINE 10 MG/ML 1ML VIAL (J2270) IV ONE (18:30)
[2019-02-10] MEDS ORDERED: HEPARIN SOD (PORCINE) 5000 UNITS/ML VIAL As Ordered ONE (18:41)
[2019-02-10] MEDS ORDERED: BUPIVACAINE HCL 0.5% 30 ML VIAL As Ordered ONE (18:41)
[2019-02-10] MEDS ORDERED: LIDOCAINE 1% SDV INJ 30 ML VIAL As Ordered ONE (18:41)
[2019-02-10] MEDS ORDERED: THROMBIN SOLN 20,000 UNITS KIT As Ordered ONE (19:00)
[2019-02-10 19:01] LABS: HEMATOCRIT 38.4 % (42.0-52.0)
[2019-02-10] MEDS ORDERED: LIDOCAINE 2% INJ 100 MG/5 ML SDV (FOR ANES.) As Ordered ONE (19:01)
[2019-02-10] MEDS ORDERED: PROPOFOL 200 MG/20 ML VIAL As Ordered ONE ×2 (19:01→19:02)
[2019-02-10] MEDS ORDERED: fentaNYL 100 MCG/2 ML INJECTION (J3010) As Ordered ONE (19:01)
[2019-02-10] MEDS ORDERED: MIDAZOLAM INJ 2 MG/2 ML VIAL (J2250) As Ordered ONE (19:01)
[2019-02-10] MEDS ORDERED: ceFAZolin 1GM INJ (J0690 PER 500MG) As Ordered ONE (19:05)
[2019-02-10] MEDS ORDERED: ceFAZolin 2 GM/D5W 50 ML IV BAG (J0690 PER 500MG) As Ordered ONE (19:05)
[2019-02-10] MEDS ORDERED: diphenhydrAMINE INJ 50MG/ML VIAL (J1200) IV PRN (20:00)
[2019-02-10] MEDS ORDERED: ONDANSETRON 4MG/2ML VIAL (J2405) IV PRN (20:00)
[2019-02-10] MEDS ORDERED: NALBUPHINE HCL 10 MG/ML AMP (J2300) IV PRN (20:00)
[2019-02-10] MEDS ORDERED: LR 1,000 ML IV SCH (20:00)
[2019-02-10] MEDS ORDERED: MORPHINE 1MG/ML IN 0.9% NACL 100ML IV BAG IV PRN ×3 (20:00)
[2019-02-10] MEDS ORDERED: fentaNYL 100 MCG/2 ML INJECTION (J3010) IV PRN (20:00)
[2019-02-10] MEDS ORDERED: EPIDURAL/PCA KEYS XX PRN (20:00)
[2019-02-10] MEDS ORDERED: NALOXONE INJ 0.4 MG/1 ML VIAL (J2310) IV PRN (20:00)
[2019-02-10] MEDS ORDERED: PERCOCET 5MG/325MG TAB PO PRN (20:00)
[2019-02-10] MEDS: ePHEDrine SULFATE 25 MG/5 ML(5MG/ML) SYRINGE IV SCH ×3 (20:10→20:36)
[2019-02-10] MEDS ORDERED: MORPHINE 1MG/ML IN 0.9% NACL 100ML IV BAG As Ordered ONE (20:13)
--- NOTE | 2019-02-10 20:37 | ECHO ---
DATE OF PROCEDURE: 02/10/2019 INDICATION: Syncope. Height 180 cm, weight 128 kg. DIMENSIONS: IVS: 1.3 LV: 4.6 LVPW: 1.2 LA: 3.6 Aorta: 3.9 IVC: 1.7 Mitral E wave velocity: 36 A wave: 47 FINDINGS: This is a very limited echocardiogram corresponding to patient's body habitus and supine exam only. Left ventricle is normal size. There is probably normal left ventricular (LV) systolic function based on very limited visualization. I estimate ejection fraction (EF) around 65-70%. Mild left ventricular hypertrophy (LVH) is present. Right ventricle was not well seen. Left atrium is normal size. Right atrium was poorly visualized. Aortic, mitral and tricuspid valves appear grossly normal. Pulmonic valve was not seen. No pericardial effusion is noted. Inferior vena cava is normal size. Aortic root is borderline dilated at 3.9 cm. Aortic arch and abdominal aorta were not seen. Doppler interrogation reveals no aortic or mitral stenosis or insufficiency. Unfortunately right-sided heart valves were not well visualized, and I cannot comment on their function. Mitral inflow pattern reveals grade 1 diastolic dysfunction. CONCLUSIONS: 1. Very limited echocardiogram. 2. Mild LVH with probably hyperdynamic LV systolic function and grade 1 diastolic dysfunction. 3. No insufficiency of left-sided cardiac valves. 4. Unable to estimate pulmonary artery pressure but probably normal central venous pressure. Compared to echocardiogram from 02/08/2019, today's study was of worse quality and we were not able to determine pulmonary artery pressure but grossly based on 2D imaging, I do not appreciate significant change.
[2019-02-10 20:41] LABS: PARTIAL THROMBOPLASTIN TIME 45.2 SECONDS (25.4-37.6)
--- NOTE | 2019-02-10 20:46 | ECGEPIP ---
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
--- NOTE | 2019-02-10 20:47 | ECGEPIP ---
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
[2019-02-10 21:03] LABS: CK-MB VALUE MASS < 1.0 NG/ML (<3.6); CPK CREATINE PHOSPHOKINASE 48 U/L (39-308); MB/CK RELATIVE INDEX 2.08 (< OR =4)
--- NOTE | 2019-02-10 22:47 | IPNPDOC ---
Text Note Date of Service The patient was seen on 02/10/19. NOTE MAX CART NOTE This am at around 11;20 am a Max cart was called for Mr Huggins. He was sitting up in a chair for about half hour when he called for the nurse the nurse immediately went in he complained of feeling extremely warm and flushed across the chest and then suddenly slumped back into the chair not responsive he became apneic for several seconds . Homer arevalo was called. He had jerky movements of his limbs for a few seconds then he regained consciousness and vomited. He did not need to be bagged and his cardiac rhythm did not show any change. He did not need CPR. The Whole episode lasted about 2 minutes. After becoming conscious he was very diaphoretic. He was moved to the bed and put on non re breather. He did not have any period of confusion. Latr he did day just before the episode he was also feeling dizzy and SOB. The vascular surgeon and ditch digger were also at the bedside. It was felt he most probably had a vasovagal episode. All stat labs were ordered. Stat EKG which i reviewed personally and discussed with the ditch digger showed some probable more prominent t wave inversions in V2 and V3 other mayes remained unchanged from prior. A stat echo was also done. all his stat labs were within accepatble limits. His troponin were coming down. His vitals were stable. There was no drop in blood pressure. He was put on bed rest and placed under close monitoring. I spent 40 mins at the bedside managing and stabilizing the patient followed by speaking with the family. A-FIB/CHADSVASC A-FIB History Current/History of A-Fib/PAF?: No VS,Fishbone, I+O VS, Fishbone, I+O Laboratory Tests 02/10/19 00:12 02/10/19 05:49 Red Blood Count 4.40, Mean Corpuscular Volume 99.8 H, Mean Corpuscular Hemoglobin 34.1 H, Mean Corpuscular Hemoglobin Concent 34.2, Red Cell D istribution Width 12.2, Calcium Level 9.0 02/10/19 11:32 Red Blood Count 4.52, Mean Corpuscular Volume 98.2 H, Mean Corpuscular Hemoglobin 33.6 H, Mean Corpuscular Hemoglobin Concent 34.2, Red Cell Distribution Width 12.3, Calcium Level 9.3, Neutrophils (%) (Auto) 62.1, Lympho cytes (%) (Auto) 24.2, Monocytes (%) (Auto) 12.3 H, Eosinophils (%) (Auto) 0.7, Basophils (%) (Auto) 0.3, Neutrophils # (Auto) 8.2 H, Lymphocytes # (Auto) 3.2, Monocytes # (Auto) 1.6 H, Eosinophils # (Auto) 0.1, Basophils # (Auto) 0.0, Phosphorus Level 2.1 L, Aspartate Amino Transf (AST/SGOT) 24, Alanine Aminotransferase (ALT/SGPT) 26, Total Creatine Kinase 77, Alkaline Phosphatase 112, Total Bilirubin 1.2 H, Direct Bilirubin 0.2, Total Protein 7.2, Albumin 3.6 02/10/19 18:27 Vital Signs Date Time Temp Pulse Resp B/P (MAP) Pulse Ox O2 Delivery O2 Flow Rate FiO2 02/10/19 22:00 79 19 127/78 (94) 100 2.0 02/10/19 20:59 98.5 02/10/19 17:22 100 02/08/19 22:39 Room Air I&O- Last 24 Hours up to 6 AM 02/10/19 05:59 Intake Total 2136 ml Output Total 3100 ml Balance -964 ml ALDEN SOSA MD February 10, 2019 22:47
--- NOTE | 2019-02-10 22:53 | IPNPDOC ---
Subjective Date Seen The patient was seen on 02/10/19. Subjective Chief Complaint/HPI Sob , tachycardia and calf swelling. Events since last encounter After he had the Max cart call this am he again had a vasovagal episode around 5:30 pm when he had bradyed down to 40s and bp dropped and he became nonrespo nsive staring and recovered in about [address] head, CT abdomen and pelvis and CT chest done then no new findings were noted . No internal bleeding. Later in [facility] evening is was noted that his right arm hematoma has enlarged to huge size. So he was taken to the OR for evaluation of hematoma and a wound vac was placed. He did not have chest pain or sob , no fever or chills. 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 Pt has no personal or family hx/o bleeding or clotting disorder. Lives active lifestyle. He did drive to [facility] over the spring with 2 stops in between. And there they did a lot of walking. In the ER, pt was found to have extensive DVT on the Left leg and bilateral saddle pulmonary emboli. A STAT echo done in the ER and reported to ER by Dr. Hartmann: dilated LV, dilated IVC and elevated pulmonary artery pressure 64. Troponin is elevated at 2.91. Pt has no clinical signs of heart failure. Patient was admitted for Pulmonary embolism and acute DVT. Recurrent vasovagal episodes probably due to episodes of large amount of bleeding into the arm causing a huge hematoma had evacuation of hematoma done on 02/10/19 and placement of a wound vac. Pulmonary embolism and acute DVT seems to be unprovoked DVT S/p IVC filter on 02/09/19 followed by Intraclot catheter-guided thrombolysis started this morning on 02/09/19 on heparin and alteplace infusion Hypercoagulable work up has been sent. will be going home with oral anticoagulants. Fibrinogen levels q 6h, aptt and Hb/HCT q6 hours. Acute pulmonary hypertension due to pulmonary embolism Elevated troponin due to right ventricular strain due to pulmonary embolism. DVT on heparin infusion and has ivc filter in place. Morbid obesity complicating care. Plan/VTE VTE Prophylaxis Ordered?: Yes VTE Exclusion Mechanical Proph: Patient on IV Heparin VTE Exclusion Pharmacological: IV Heparin Therapy VS, I&O, 24H, Fishbone Vital Signs/I&O Vital Signs Date Time Temp Pulse Resp B/P (MAP) Pulse Ox O2 Delivery O2 Flow Rate FiO2 02/10/19 20:32 78 20 135/64 (87) 96 02/10/19 20:17 98.3 02/10/19 17:22 100 02/08/19 22:39 Room Air I&O- Last 24 Hours up to 6 AM 02/10/19 06:00 Intake Total 1502 ml Output Total 3100 ml Balance -1598 ml Laboratory Data 24H LABS Laboratory Tests 2 02/10/19 00:12: Activated Partial Thromboplast Time 35.8, Fibrinogen 327 02/10/19 05:49: Activated Partial Thromboplast Time 31.6, Fibrinogen 351, Nucleated Red Blood Cells % (auto) 0.0, Anion Gap 6L, Glomerular Filtration Rate > 60.0, Blood Urea Nitrogen 12, Creatinine 0.69L, Sodium Level 139, Potassium Level 4.2, Chloride Level 108H, Carbon Dioxide Level 25, Calcium Level 9.0 02/10/19 11:27: Bedside Glucose (Misc Panel) 147H 02/10/19 11:32: Activated Partial Thromboplast Time 23.5L, Fibrinogen 272, Nucleated Red Blood Cells % (auto) 0.0, Anion Gap 7L, Glomerular Filtration Rate > 60.0, Blood Urea Nitrogen 12, Creatinine 0.89, Sodium Level 136, Potassium Level 4.2, Chloride Level 105, Carbon Dioxide Level 24, Calcium Level 9.3, Immature Granulocyte % (Auto) 0.4, White Blood Count 13.2H, Red Blood Count 4.52, Hemoglobin 15.2, Hematocrit 44.4, Mean Corpuscular Volume 98.2H, Mean Corpuscular Hemoglobin 33.6H, Mean Corpuscular Hemoglobin Concent 34.2, Red Cell Distribution Width 12.3, Platelet Count 155, Neutrophils (%) (Auto) 62.1, Lymphocytes (%) (Auto) 24.2, Monocytes (%) (Auto) 12.3H, Eosinophils (%) (Auto) 0.7, Basophils (%) (Auto) 0.3, Neutrophils # (Auto) 8.2H, Lymphocytes # (Auto) 3.2, Monocytes # (Auto) 1.6H, Eosinophils # (Auto) 0.1, Basophils # (Auto) 0.0, Phosphorus Level 2.1L, Aspartate Amino Transf (AST/SGOT) 24, Alanine Aminotransferase (ALT/SGPT) 26, Total Creatine Kinase 77, Alkaline Phosphatase 112, Total Bilirubin 1.2H, Direct Bilirubin 0.2, Total Protein 7.2, Albumin 3.6, Magnesium Level 2.3, Creatine Kinase MB 1.0, Creatine Kinase MB Relative Index 1.69, Troponin I 0.13#H, Albumin/Globulin Ratio 1.00 02/10/19 18:27: Activated Partial Thromboplast Time 45.2H, Fibrinogen 356 02/10/19 20:24: Total Creatine Kinase 48, Creatine Kinase MB < 1.0, Creatine Kinase MB Relative Index 2.08 CBC/BMP Laboratory Tests 02/10/19 00:12 02/10/19 05:49 Red Blood Count 4.40, Mean Corpuscular Volume 99.8 H, Mean Corpuscular Hemoglobin 34.1 H, Mean Corpuscular Hemoglobin Concent 34.2, Red Cell Distribution Width 12.2, Calcium Level 9.0 02/10/19 11:32 Red Blood Count 4.52, Mean Corpuscular Volume 98.2 H, Mean Corpuscular Hemoglobin 33.6 H, Mean Corpuscular Hemoglobin Concent 34.2, Red Cell Distribution Width 12.3, Calcium Level 9.3, Neutrophils (%) (Auto) 62.1, Lymphocytes (%) (Auto) 24.2, Monocytes (%) (Auto) 12.3 H, Eosinophils (%) (Auto) 0.7, Basophils (%) (Auto) 0.3, Neutrophils # (Auto) 8.2 H, Lymphocytes # (Auto) 3.2, Monocytes # (Auto) 1.6 H, Eosinophils # (Auto) 0.1, Basophils # (Auto) 0.0, Phosphorus Level 2.1 L, Aspartate Amino Transf (AST/SGOT) 24, Alanine Aminotransferase (ALT/SGPT) 26, Total Creatine Kinase 77, Alkaline Phosphatase 112, Total Bilirubin 1.2 H, Direct Bilirubin 0.2, Total Protein 7.2, Albumin 3.6 02/10/19 18:27 ALDEN SOSA MD February 10, 2019 22:53
[2019-02-10] MEDS: NS 1,000 ML IV SCH (23:34)
[2019-02-10] MEDS: diphenhydrAMINE 50 MG CAP PO PRN (23:57)
[2019-02-11] VITALS (47 sets, daily range): BP systolic 60–139; BP diastolic 38–92; PULSE 76
[2019-02-11 00:08] LABS: TROPONIN I 0.06 NG/ML (< 0.10)
[2019-02-11 00:09] LABS: PARTIAL THROMBOPLASTIN TIME 55.8 SECONDS (25.4-37.6)
[2019-02-11 00:16] LABS: HEMATOCRIT 35.8 % (42.0-52.0); HEMOGLOBIN 12.2 g/dl (13.5-17.5)
[2019-02-11] MEDS: SODIUM CHLORIDE 0.9% INJ 10 ML SYR IV SCH ×2 (05:47→18:00)
[2019-02-11] MEDS: HEPARIN DRIP 25,000 UNITS in APPROPRIATE DILUENT 1 EA IV SCH ×2 (05:57→22:39)
[2019-02-11 06:13] LABS: HEMATOCRIT 33.7 % (42.0-52.0); HEMOGLOBIN 11.4 g/dl (13.5-17.5); MEAN CORPUSCULAR HEMOGLOBIN 34.1 pg (27.0-33.0); MEAN CORPUSCULAR HGB CONC 33.8 g/dl (32.0-36.5); MEAN CORPUSCULAR VOLUME 100.9 fl (80.0-96.0); PLATELET COUNT, AUTOMATED 142 10^3/uL (150-450); RED BLOOD COUNT 3.34 10^6/uL (4.30-6.10); WHITE BLOOD COUNT 13.8 10^3/uL (4.0-10.0)
[2019-02-11 06:30] LABS: BLOOD UREA NITROGEN 10 MG/DL (7-18); CALCIUM LEVEL 8.5 MG/DL (8.5-10.1); CARBON DIOXIDE LEVEL 26 MEQ/L (21-32); CHLORIDE LEVEL 106 MEQ/L (98-107); CREATININE FOR GFR 0.73 MG/DL (0.70-1.30); GLOMERULAR FILTRATION RATE > 60.0 (>56); GLUCOSE, FASTING 132 MG/DL (70-100); POTASSIUM SERUM 4.7 MEQ/L (3.5-5.1); SODIUM LEVEL 138 MEQ/L (136-145)
[2019-02-11 07:12] LABS: CK-MB VALUE MASS < 1.0 NG/ML (<3.6); CPK CREATINE PHOSPHOKINASE 33 U/L (39-308); MB/CK RELATIVE INDEX 3.03 (< OR =4); TROPONIN I 0.05 NG/ML (< 0.10)
[2019-02-11] MEDS: SERTRALINE HCL 50 MG TAB PO SCH (09:34)
[2019-02-11] MEDS: PANTOPRAZOLE 40MG TAB (PROTONIX) PO SCH (09:34)
[2019-02-11] MEDS: amLODIPine 5 MG TAB PO SCH (09:34)
[2019-02-11] MEDS: DOCUSATE SODIUM 100 MG CAP PO SCH ×2 (09:35→22:37)
[2019-02-11] MEDS ORDERED: MORPHINE 1MG/ML IN 0.9% NACL 100ML IV BAG IV PRN (09:45)
[2019-02-11] MEDS ORDERED: MORPHINE 4 MG/ML 1ML VIAL/SYRINGE (J2270) IV ONE (09:45)
--- NOTE | 2019-02-11 10:18 | IPNPDOC ---
Subjective Date Seen The patient was seen on 02/11/19. Subjective Chief Complaint/HPI Patient had gone to OR last night for right arm hematoma evacuation and a wound vac was also placed. At round 3:50 am he again had a vasovagal episode while laying in bed when his bp had dropped and pulse went down to 40s and he was just staring which lasted for about 30 secs. At that moment he dumped about 500 cc of hemorrhagic discharge into the wound vac this may have triggered the vasovagal episode. The wound vac tubing may have been kinked when his arm was bend an then when at that point he staraightened out his arm the tube became unkinked and dumped the large amount of discharge into the wound vac. Objective Physical Examination General Exam: Positive: Alert, Cooperative, Mild Distress (due to pain and soreness of the right arm) Eye Exam: Positive: PERRLA, Conjunctiva & lids normal, EOMI ENT Exam: Positive: Atraumatic Neck Exam: Positive: Supple Chest Exam: Positive: Clear to auscultation, Normal air movement Heart Exam: Positive: Rate Normal, Bradycardic, Regular Rhythm, Normal S1, Normal S2; Negative: Irregular Rhythm, Gallops, Murmurs, Rubs Telemetry: Positive: No significant arrhythmia, Sinus, Bradycardia Abdomen Exam: Positive: Normal bowel sounds, Soft; Negative: Tenderness, Hepatospenomegaly, Hernia, Other Extremity Exam: Positive: Tenderness (left calf, and right groin and right arm) , Swelling (right arm , left calf), Other (right arm with large hematome with wound vac, decreased right dorsalis pedis pulse only heard by doppler); Negative: Clubbing, Cyanosis, Edema Skin Exam: Negative: Rash, Breakdown, Lesion Neuro Exam: Positive: Normal Speech, Strength at 5/5 X4 ext, Normal Tone Psych Exam: Positive: Mental status NL, Mood NL Assessment /Plan Assessment 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 Pt has no personal or family hx/o bleeding or clotting disorder. Lives active lifestyle. He did drive to [facility] over the spring with 2 stops in between. And there they did a lot of walking. In the ER, pt was found to have extensive DVT on the Left leg and bilateral saddle pulmonary emboli. A STAT echo done in the ER and reported to ER by Dr. Hartmann: dilated LV, dilated IVC and elevated pulmonary artery pressure 64. Troponin is elevated at 2.91. Pt has no clinical signs of heart failure. Patient was admitted for Pulmonary embo lism and acute DVT. Recurrent vasovagal episodes probably due to episodes of large amount of bleeding into the arm causing a huge hematoma had evacuation of hematoma done on 02/10/19 and placement of a wound vac. Right arm Large hematoma Has wound vac in place. Decreased dorsalis pedis pulse on the right only dopplarable. Pulmonary embolism and acute DVT seems to be unprovoked DVT S/p IVC filter on 02/09/19 followed by Intraclot catheter-guided thrombolysis started this morning on 02/09/19 on heparin and alteplace infusion Hypercoagulable work up has been sent. will be going home with oral anticoagulants. Fibrinogen levels q 6h, aptt and Hb/HCT q6 hours. Acute pulmonary hypertension due to pulmonary embolism Elevated troponin due to right ventricular strain due to pulmonary embolism. DVT on heparin infusion and has ivc filter in place. Morbid obesity complicating care. Plan/VTE VTE Prophylaxis Ordered?: Yes VTE Exclusion Mechanical Proph: Patient on IV Heparin VTE Exclusion Pharmacological: IV Heparin Therapy VS, I&O, 24H, Fishbone Vital Signs/I&O Vital Signs Date Time Temp Pulse Resp B/P (MAP) Pulse Ox O2 Delivery O2 Flow Rate FiO2 02/11/19 09:34 90 133/71 02/11/19 09:05 18 99 02/11/19 08:02 95.8 02/10/19 23:35 2.0 02/10/19 20:50 Nasal Cannula 02/10/19 17:22 100 I&O- Last 24 Hours up to 6 AM 02/11/19 06:00 Intake Total 2622 ml Output Total 2750 ml Balance -128 ml Laboratory Data 24H LABS Laboratory Tests 2 02/10/19 11:27: Bedside Glucose (Misc Panel) 147H 02/10/19 11:32: Immature Granulocyte % (Auto) 0.4, White Blood Count 13.2H, Red Blood Count 4.52, Hemoglobin 15.2, Hematocrit 44.4, Mean Corpuscular Volume 98.2H, Mean Corpuscular Hemoglobin 33.6H, Mean Corpuscular Hemoglobin Concent 34.2, Red Cell Distribution Width 12.3, Platelet Count 155, Neutrophils (%) (Auto) 62.1, Lymphocytes (%) (Auto) 24.2, Monocytes (%) (Auto) 12.3H, Eosinophils (%) (Auto) 0.7, Basophils (%) (Auto) 0.3, Neutrophils # (Auto) 8.2H, Lymphocytes # (Auto) 3.2, Monocytes # (Auto) 1.6H, Eosinophils # (Auto) 0.1, Basophils # (Auto) 0.0, Nucleated Red Blood Cells % (auto) 0.0, Activated Partial Thromboplast Time 23.5L, Fibrinogen 272, Anion Gap 7L, Glomerular Filtration Rate > 60.0, Blood Urea Nitrogen 12, Creatinine 0.89, Sodium Level 136, Potassium Level 4.2, Chloride Level 105, Carbon Dioxide Level 24, Calcium Level 9.3, Phosphorus Level 2.1L, Aspartate Amino Transf (AST/SGOT) 24, Alanine Aminotransferase (ALT/SGPT) 26, Total Creatine Kinase 77, Alkaline Phosphatase 112, Total Bilirubin 1.2H, Direct Bilirubin 0.2, Total Protein 7.2, Albumin 3.6, Magnesium Level 2.3, Creatine Kinase MB 1.0, Creatine Kinase MB Relative Index 1.69, Troponin I 0.13#H, Albumin/Globulin Ratio 1.00 02/10/19 18:27: Activated Partial Thromboplast Time 45.2H, Fibrinogen 356 02/10/19 20:24: Total Creatine Kinase 48, Creatine Kinase MB < 1.0, Creatine Kinase MB Relative Index 2.08, Troponin I 0.06# 02/10/19 23:45: Activated Partial Thromboplast Time 55.8H, Fibrinogen 354 02/11/19 05:49: Activated Partial Thromboplast Time 54.1H, Fibrinogen 323, Nucleated Red Blood Cells % (auto) 0.0, Anion Gap 6L, Glomerular Filtration Rate > 60.0, Blood Urea Nitrogen 10, Creatinine 0.73, Sodium Level 138, Potassium Level 4.7, Chloride Level 106, Carbon Dioxide Level 26, Calcium Level 8.5, Total Creatine Kinase 33L, Creatine Kinase MB < 1.0, Creatine Kinase MB Relative Index 3.03, Troponin I 0.05 CBC/BMP Laboratory Tests 02/10/19 11:32 Red Blood Count 4.52, Mean Corpuscular Volume 98.2 H, Mean Corpuscular Hemoglobin 33.6 H, Mean Corpuscular Hemoglobin Concent 34.2, Red Cell Distributi on Width 12.3, Neutrophils (%) (Auto) 62.1, Lymphocytes (%) (Auto) 24.2, Monocytes (%) (Auto) 12.3 H, Eosinophils (%) (Auto) 0.7, Basophils (%) (Auto) 0.3, Neutrophils # (Auto) 8.2 H, Lymphocytes # (Auto) 3.2, Monocytes # (Auto) 1.6 H, Eosinophils # (Auto) 0.1, Basophils # (Auto) 0.0, Calcium Level 9.3, Phosphorus Level 2.1 L, Aspartate Amino Transf (AST/SGOT) 24, Alanine Aminotransferase (ALT/SGPT) 26, Total Creatine Kinase 77, Alkaline Phosphatase 112, Total Bilirubin 1.2 H, Direct Bilirubin 0.2, Total Protein 7.2, Albumin 3.6 02/10/19 18:27 02/10/19 23:45 02/11/19 05:49 Red Blood Count 3.34 L, Mean Corpuscular Volume 100.9 H, Mean Corpuscular Hemoglobin 34.1 H, Mean Corpuscular Hemoglobin Concent 33.8, Red Cell Distribution Width 12.4, Calcium Level 8.5, Total Creatine Kinase 33 L ALDEN SOSA MD February 11, 2019 10:18
[2019-02-11 11:14] LABS: HEMATOCRIT 31.9 % (42.0-52.0); HEMOGLOBIN 10.5 g/dl (13.5-17.5)
--- NOTE | 2019-02-11 11:30 | IPNPDOC ---
Date Seen The patient was seen on 02/11/19. 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 Pt has no personal or family hx/o bleeding or clotting disorder. Lives active lifestyle. He did drive to [facility] over the spring with 2 stops in between, while there reported did a lot of walking. In the ER, pt was found to have extensive DVT on the Left leg and bilateral saddle pulmonary emboli. A STAT echo done in the ER and reported to ER by Dr. Hartmann: dilated LV, dilated IVC and elevated pulmonary artery pressure 64. Patient was admitted for Pulmonary embolism and acute DVT. Vascular Surgery was consulted for DVT/PE. The pt has had 3 episodes where he feels nausea, a flush sensation in his chest followed by a possible vasovagal episode. Yesterday during the day it occurred whn the pt was OOB and felt nausea and vomited. 2 other episodes occurred last evening, the pt states he felt nauseated as well with those episodes. At round 3:50 am he again had a vasovagal episode while laying in bed when his bp had dropped and pulse went down to 40s and he was just staring which lasted for about 30 secs. This was apparently associated with a large amt of drainage in the wound vac from his RUE. The Patient had gone to OR last night for right arm hematoma evacuation and a wound vac was also placed as per Dr Nick. This AM nursing reports a total of 775cc overnight in drainage from the wound vac. 75cc since 6 AM. PMHx: depression GERD PSHX: pineal cyst removal PE: GEN: 53yoM, appears stated age. HEENT: Normocephalic, atraumatic. Moist mucous membranes. CHEST: Regular rate and rhythm, +S1, +S2 LUNGS: Clear to auscultation bilaterally. No wheezes, rales, or rhonchi. Breathing appears symmetric and easy. ABD: Round, soft, non-tender, non-distended. +Bowel sounds throughout. No rebound or guarding. EXT: No lower extremity edema appreciated. Pulses are palpable LLE, toes are cool RLE pulses not palpable but obtained with doppler PT/DP. SKIN: RUE bandaged with wound vac intact draining bloody drainage. 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 NEURO: Alert and oriented x 3. No focal deficits appreciated. CTA chest Severe bilateral acute pulmonary emboli. Bilateral large saddle emboli identified right and left main pulmonary arteries with suprahilar and infrahilar extension of thrombus. Electronically signed by: Trell Chong On 02/08/2019 19:45:08 PM LE US Acute deep venous thrombosis left leg. Severe occlusive thrombus filling and distending the left femoral vein from the mid thigh to the knee. Acute thrombosis filling the popliteal vein with no venous return through the popliteal region. Electronically signed by: Trell Chong On 02/08/2019 17:49:45 PM TTE 02/08/19 CONCLUSIONS: 1. Suggestive of severe elevation of estimated right ventricle systolic pressure (at least 64 mmHg) assuming right atrial pressure of at least 20 mmHg. Pulmonary artery pressure was moderate and estimated to be 52-57 mmHg by pulmonary acceleration time method. At last mild right ventricle dilatation with preserved right ventricle systolic function. Moderate right atrial dilatation. 2. Inferior vena cava dilatation with marked reduction of respiratory variation suggestive of elevated central venous pressure of at least 20 mmHg. 3. Normal left ventricle internal dimensions and wall thickness. Normal regional LV wall motion and wall thickening. Normal LV systolic function. LVEF 60% by visual esimate. Grade1 LV diastolic dysfunction (impaired relaxation filling pattern). 4. Mild dilatation of the aortic root at the level of the sinus of Valsalva (3.9 cm). 5. Very mild aortic valve sclerosis of a 3-cuspid aortic valve. No aortic regurgitation. TTE 02/10/19 CONCLUSIONS: 1. Very limited echocardiogram. 2. Mild LVH with probably hyperdynamic LV systolic function and grade 1 diastolic dysfunction. 3. No insufficiency of left-sided cardiac valves. 4. Unable to estimate pulmonary artery pressure but probably normal central venous pressure. Compared to echocardiogram from 02/08/2019, today's study was of worse quality and we were not able to determine pulmonary artery pressure but grossly based on 2D imaging, I do not appreciate significant change. CTH CT of the brain without IV contrast: There are no comparisons. There is no hemorrhage. There is no edema, mass effect or midline shift. The cortical stripe is unremarkable. The visualized paranasal sinuses and mastoid air cells are clear. Impression: There is no hemorrhage, acute infarct or mass. Negative CT study of the brain. Electronically Signed by Darren Curiel MD 02/10/2019 05:[address] chest Impression: No mediastinal hematoma. No hemothorax. No pulmonary contusion. Calcified granulomas. Right upper extremity PICC line with the tip in the superior vena cava. Electronically Signed by Darren Curiel MD 02/10/2019 06:[address] A/P Impression: No hemoperitoneum. Diverticulosis without diverticulitis. Vena cava filter. In the absence of IV contrast the study is insensitive for intraparenchymal solid organ hematoma. 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 Pt has no personal or family hx/o bleeding or clotting disorder. Lives active lifestyle. He did drive to [facility] over the spring with 2 stops in between, while there reported did a lot of walking. In the ER, pt was found to have extensive DVT on the Left leg and bilateral saddle pulmonary emboli. A STAT echo done in the ER and reported to ER by Dr. Hartmann: dilated LV, dilated IVC and elevated pulmonary artery pressure 64. Troponin is elevated at 2.91. Pt has no clinical signs of heart failure. Patient was admitted for Pulmonary embolism and acute DVT. Vascular Surgery was consulted. Pulmonary embolism and acute DVT. S/P IVC filter 02/09/19 followed by catheter-guided thrombolysis 02/09/[address] Nick. Heparin gtt. PTT 54.1 Alteplase gtt. Fibrinogen 323. Hgb 11.4. Hypercoagulable work up pending. Continue Fibrinogen levels, PTT, CBC q 6h. repeat TTE pending. repeat LE venous US pending. Monitor. RUE hematoma S/P evacuation 02/10/19 with wound vac placed. plan as per Dr Nick is for OR this afternoon for RUE wound closure. Recurrent vasovagal episodes. CT head, chest, abd/pelvis with no acute changes. Serial CIP/Trop, trop this AM 0.05. A-FIB/CHADSVASC A-FIB History Current/History of A-Fib/PAF?: No VS, I&O, 24H, [facility] Vital Signs/I&O Vital Signs Date Time Temp Pulse Resp B/P (MAP) Pulse Ox O2 Delivery O2 Flow Rate FiO2 02/11/19 09:34 90 133/71 02/11/19 09:05 18 99 02/11/19 08:02 95.8 02/10/19 23:35 2.0 02/10/19 20:50 Nasal Cannula 02/10/19 17:22 100 I&O- Last 24 Hours up to 6 AM 02/11/19 06:00 Intake Total 2622 ml Output Total 2750 ml Balance -128 ml Laboratory Data 24H LABS Laboratory Tests 2 02/10/19 11:27: Bedside Glucose (Misc Panel) 147H 02/10/19 11:32: Immature Granulocyte % (Auto) 0.4, White Blood Count 13.2H, Red Blood Count 4.52, Hemoglobin 15.2, Hematocrit 44.4, Mean Corpuscular Volume 98.2H, Mean Corpuscular Hemoglobin 33.6H, Mean Corpuscular Hemoglobin Concent 34.2, Red Cell Distribution Width 12.3, Platelet Count 155, Neutrophils (%) (Auto) 62.1, Lymphocytes (%) (Auto) 24.2, Monocytes (%) (Auto) 12.3H, Eosinophils (%) (Auto) 0.7, Basophils (%) (Auto) 0.3, Neutrophils # (Auto) 8.2H, Lymphocytes # (Auto) 3.2, Monocytes # (Auto) 1.6H, Eosinophils # (Auto) 0.1, Basophils # (Auto) 0.0, Nucleated Red Blood Cells % (auto) 0.0, Activated Partial Thromboplast Time 23.5L, Fibrinogen 272, Anion Gap 7L, Glomerular Filtration Rate > 60.0, Blood Urea Nitrogen 12, Creatinine 0.89, Sodium Level 136, Potassium Level 4.2, Chloride Level 105, Carbon Dioxide Level 24, Calcium Level 9.3, Phosphorus Level 2.1L, Aspartate Amino Transf (AST/SGOT) 24, Alanine Aminotransferase (ALT/SGPT) 26, Total Creatine Kinase 77, Alkaline Phosphatase 112, Total Bilirubin 1.2H, Direct Bilirubin 0.2, Total Protein 7.2, Albumin 3.6, Magnesium Level 2.3, Creatine Kinase MB 1.0, Creatine Kinase MB Relative Index 1.69, Troponin I 0.13#H, Albumin/Globulin Ratio 1.00 02/10/19 18:27: Activated Partial Thromboplast Time 45.2H, Fibrinogen 356 02/10/19 20:24: Total Creatine Kinase 48, Creatine Kinase MB < 1.0, Creatine Kinase MB Relative Index 2.08, Troponin I 0.06# 02/10/19 23:45: Activated Partial Thromboplast Time 55.8H, Fibrinogen 354 02/11/19 05:49: Activated Partial Thromboplast Time 54.1H, Fibrinogen 323, Nucleated Red Blood Cells % (auto) 0.0, Anion Gap 6L, Glomerular Filtration Rate > 60.0, Blood Urea Nitrogen 10, Creatinine 0.73, Sodium Level 138, Potassium Level 4.7, Chloride Level 106, Carbon Dioxide Level 26, Calcium Level 8.5, Total Creatine Kinase 33L, Creatine Kinase MB < 1.0, Creatine Kinase MB Relative Index 3.03, Troponin I 0.05 02/11/19 11:00: CBC/BMP Laboratory Tests 02/10/19 11:32 Red Blood Count 4.52, Mean Corpuscular Volume 98.2 H, Mean Corpuscular Hemoglobin 33.6 H, Mean Corpuscular Hemoglobin Concent 34.2, Red Cell Distribution Width 12.3, Neutrophils (%) (Auto) 62.1, Lymphocytes (%) (Auto) 24.2, Monocytes (%) (Auto) 12.3 H, Eosinophils (%) (Auto) 0.7, Basophils (%) (Auto) 0.3, Neutrophils # (Auto) 8.2 H, Lymphocytes # (Auto) 3.2, Monocytes # (Auto) 1.6 H, Eosinophils # (Auto) 0.1, Basophils # (Auto) 0.0, Calcium Level 9.3, Phosphorus Level 2.1 L, Aspartate Amino Transf (AST/SGOT) 24, Alanine Aminotransferase (ALT/SGPT) 26, Total Creatine Kinase 77, Alkaline Phosphatase 112, Total Bilirubin 1.2 H, Direct Bilirubin 0.2, Total Protein 7.2, Albumin 3.6 02/10/19 18:27 02/10/19 23:45 02/11/19 05:49 Red Blood Count 3.34 L, Mean Corpuscular Volume 100.9 H, Mean Corpuscular Hemoglobin 34.1 H, Mean Corpuscular Hemoglobin Concent 33.8, Red Cell Distribution Width 12.4, Calcium Level 8.5, Total Creatine Kinase 33 L 02/11/19 11:00 Ceci Serra February 11, 2019 11:30
--- NOTE | 2019-02-11 12:34 | REP ---
Left lower extremity deep vein duplex ultrasound: There is non occlusive thrombus in the anterior tibial and posterior tibial veins extending into the popliteal vein and distal femoral vein. The thrombus becomes occlusive in the popliteal vein and distal femoral vein. Impression: Occlusive thrombus in the left lower extremity popliteal vein and distal femoral vein. Nonocclusive thrombus in the left lower extremity anterior posterior tibial veins. Right lower extremity deep vein duplex ultrasound: The deep veins demonstrate normal compression, normal Doppler color flow and normal Doppler waveforms with respiration and augmentation from the popliteal vein to the common femoral vein. Impression: There is no right lower extremity deep vein thrombus. Electronically Signed by Darren Curiel MD 02/11/2019 12:25 P
[2019-02-11] MEDS ORDERED: MORPHINE 10 MG/ML 1ML VIAL (J2270) IV ONE (14:30)
[2019-02-11] MEDS ORDERED: fentaNYL 100 MCG/2 ML INJECTION (J3010) As Ordered ONE (16:35)
[2019-02-11] MEDS ORDERED: MIDAZOLAM INJ 2 MG/2 ML VIAL (J2250) As Ordered ONE (16:35)
[2019-02-11] MEDS ORDERED: LIDOCAINE 2% INJ 100 MG/5 ML SDV (FOR ANES.) As Ordered ONE (16:37)
[2019-02-11] MEDS ORDERED: PROPOFOL 200 MG/20 ML VIAL As Ordered ONE (16:37)
[2019-02-11] MEDS ORDERED: BUPIVACAINE HCL 0.5% 30 ML VIAL As Ordered ONE (16:44)
[2019-02-11] MEDS ORDERED: LIDOCAINE 1% SDV INJ 30 ML VIAL As Ordered ONE (16:44)
[2019-02-11] MEDS ORDERED: HEPARIN SOD (PORCINE) 5000 UNITS/ML VIAL As Ordered ONE (16:44)
[2019-02-11] MEDS ORDERED: THROMBIN SOLN 20,000 UNITS KIT As Ordered ONE (16:44)
[2019-02-11] MEDS: ALTEPLASE RECOMBINANT 25 MG in NS 225 ML IV SCH (17:16)
[2019-02-11] MEDS ORDERED: SODIUM CHLORIDE 0.9% 1000ML IV ONE (17:30)
--- NOTE | 2019-02-11 18:00 | IPN ---
DATE: 02/11/2019 NOTE: We became reinvolved with Mr. Huggins yesterday after he had a code called in the intensive care unit (ICU). At that time, I attended the call along with multiple other providers. Mr. Huggins was sitting in a chair beside his bed and had suddenly felt flushing across his chest and experienced emesis and became unresponsive. It was thought that he was apneic. He was diaphoretic. He roused by himself and did not require any intervention. His vital signs remained stable throughout this period. He was moved to the bed and felt better. It was felt at that time that he may have had a vasovagal response. Electrocardiogram (EKG) showed inverted T waves in V1 through V3, which is what had been present on admission. Perhaps V2 and V3 inverted T waves were slightly deeper than they had been on admission. His hemoglobin was stable. His troponin was 0.13, which was lower than it had been on the morning of the . He had complained of some discomfort in the left flank area with no findings on examination. This occurred around 11:30 in the morning. Apparently in the afternoon he had a second event that was similar to the first. Following this event, he had head CT, chest CT scan and abdominal CT scan, which were all unremarkable. However, he had hematoma on his left arm where the peripherally inserted central catheter (PICC) line had been placed that was running thrombolytics. He ended up going to the operating room around 6 o'clock last evening for evacuation of the hematoma with a wound VAC placed. The plan in that regard is to go back this afternoon to further evacuate the hematoma and likely stop the TPA at that time. It should also be noted that an echocardiogram was obtained at the time of his first event yesterday, which was very limited and grossly was not felt to be different from the one that he had on admission on 02/08/2019. This morning, Mr. Huggins reports that he has had three additional episodes, including one shortly before I saw him. He no longer had any flushing, but he did feel nauseous and lightheaded. He had dry heaves. Following the latter one, it appeared that he had some decrease in oxygen saturation, though it was not clear that the signal correlated. He has persistent mild tachycardia. At the present time, he is denying any significant symptoms except to note that he feels tired. OBJECTIVE: PHYSICAL EXAMINATION: GENERAL: Mr. Huggins is lying in bed in no acute distress. He does have a washcloth on his forehead and a fan directed on him. He can complete full sentences. No cough during the evaluation. VITAL SIGNS: Temperature 95.8 with a maximum temperature (t-max) of 97.4, respiratory rate 20, SpO2 97% on room air, blood pressure 104/49 with a mean arterial pressure of 67, pulse 114. HEENT: Anicteric. Nares: Patent bilaterally. Oropharynx: No lesions. NECK: Supple. Unable to access jugular venous distention (JVD) based on body habitus. Trachea is midline. LYMPHATICS: Without cervical or supraclavicular lymphadenopathy. CHEST: Normal shape. LUNGS: Symmetric excursion. Good air entry. No wheeze, rhonchi or crackle on tidal excursion (heard anteriorly). Normal I:E. No accessory muscle usage or retractions. CARDIOVASCULAR: Tachycardic. Regular rhythm. Normal S1, S2. No murmur, rub or gallop appreciated. No heave appreciated. ABDOMEN: Positive bowel sounds. Soft, nondistended, nontender. EXTREMITIES: Cool but not cold. Thready but palpable pulses bilaterally. Perhaps slightly decreased calf size on the left. No clubbing or cyanosis. LABORATORY DATA: Chemistries from this morning showed a sodium of 138, potassium 4.7, chloride 106, bicarbonate 26, anion gap 6, BUN 10, creatinine 0.7, glucose 132, calcium 8.5, CK 33, CK-MB less than 1, troponin I 0.05. Hematology from this morning showed a hemoglobin of 11.4, hematocrit 33.7, platelet count 142,000, white blood cell count 13,800. His repeat hemoglobin and hematocrit at 11:00 was 10.5 and 31.9. His fibrinogen was 329, PTT this morning was 54.1. IMPRESSION: 1. Recurrent episodes of nausea, emesis, sometimes flushing, and lightheadedness. The differential would be vasovagal episodes; however, I suspect that it is most likely secondary to small bits of clot going through the IVC filter. He is receiving lytic therapy. 2. Pulmonary emboli. He had a saddle emboli on presentation. Etiology is unknown. While there is a history that may suggest an etiology, I consider it unprovoked at this time. Clotting studies are pending. 3. Large left deep vein thrombosis (DVT), status post IVC filter. 4. Large right hematoma secondary to lytics. 5. Pulmonary hypertension, moderate, with an estimated PA systolic pressure of 52 to 57 mmHg on presenting echocardiogram. Majority of this is thought secondary to pulmonary embolism, perhaps even chronic pulmonary embolism, though there may also be a portion related to sleep apnea, as his body habitus is suggestive of that, although he does not carry a diagnosis. 6. Possible underlying sleep apnea based on body habitus. He has had significant weight loss over the past 9 months to a year secondary go being on a Keto diet. 7. Gastroesophageal reflux disease (GERD). RECOMMENDATIONS: 1. Mr. Huggins appears to have significant drop in his hemoglobin, likely secondary to the hematoma and his lytic therapy. His initial hemoglobin was 16.1 and now he is 10.5. I suspect that this explains his tachycardia and overall decrease in blood pressure, as well as may explain some of his symptoms and generally feeling unwell. 2. I spoke with Dr. Nick and we are going to transfuse him 2 units of packed red blood cells. 3. Await clotting [place]. [facility]
[2019-02-11] MEDS: NS 1,000 ML IV SCH (18:54)
[2019-02-11] MEDS: FLEET OIL RETENTION ENEMA PR PRN (19:06)
--- NOTE | 2019-02-11 20:44 | ECHO ---
DATE OF PROCEDURE: 02/11/2019 REFERRING PHYSICIAN: Yohannes Nick MD PATIENT LOCATION: Room 3207 REASON FOR ECHOCARDIOGRAM: Pulmonary hypertension. 2D MEASUREMENTS: IVS: 1.3 cm LV: 4.6 cm LVPW: 1.3 cm LA: 3.3 cm Aorta: 3.7 cm IVC: 1.5 cm DOPPLER MEASUREMENTS: Peak velocity across the aortic valve: 1.3 m/s Peak velocity across the LVOT: 1.0 m/s Mitral E: 0.46, Mitral A: 0.66, with a ratio of 0.7 2D COMMENTS: 1. Technically limited study due to poor acoustic window. 2. The left ventricular size is normal with mildly increased left ventricular wall thickness. Left ventricular systolic function is normal, estimated at 60 to 65%. 2. Normal left atrium. The right atrium and the right ventricle appear to be normal in size in limited views. 3. Normal aortic root. 4. The atrial septum appeared to be normal without evidence of defect or shunt. 5. Small pericardial effusion noted, no evidence of cardiac tamponade. 6. Mildly calcified aortic valve with normal leaflet excursion. Mildly calcified mitral annulus with normal anterior mitral valve leaflet motion. The tricuspid valve was not well visualized. The pulmonic valve appeared to be normal. The proximal pulmonary artery branches were not well visualized. 7. The inferior vena cava was normal in size, central venous pressure might be normal. DOPPLER: No significant valvular abnormalities detected. Could not assess pulmonary artery systolic pressure. Abnormal relaxation pattern was noted across the mitral valve leaflets as well as the mitral valve annulus consistent with a delayed relaxation. IMPRESSION: 1. Technically limited study due to poor acoustic window. 2. Normal global left ventricular systolic function with mild concentric left ventricular hypertrophy. There are some features of left ventricular diastolic dysfunction manifested by abnormal relaxation, grade 1. 2. Aortic valve sclerosis without stenosis or aortic regurgitation. 3. Isolated mitral annulus calcification. There was no evidence of mitral stenosis or mitral regurgitation. 4. A small pericardial effusion was noted, no evidence of cardiac tamponade. 5. The right heart chambers were not well visualized but appeared to be normal in size. MTDD
[2019-02-12] VITALS (26 sets, daily range): BP systolic 112–162; BP diastolic 57–86
[2019-02-12 00:14] LABS: HEMATOCRIT 34.9 % (42.0-52.0); HEMOGLOBIN 12.1 g/dl (13.5-17.5)
[2019-02-12] MEDS: D5W/0.45% SODIUM CHLORIDE 1,000 ML IV SCH ×2 (03:00→10:23)
[2019-02-12] MEDS: SODIUM CHLORIDE 0.9% INJ 10 ML SYR IV SCH ×2 (06:22→18:00)
[2019-02-12] MEDS: ONDANSETRON 4MG/2ML VIAL (J2405) IV PRN ×2 (06:22→16:49)
[2019-02-12 06:39] LABS: HEMATOCRIT 31.3 % (42.0-52.0); HEMOGLOBIN 10.9 g/dl (13.5-17.5); MEAN CORPUSCULAR HEMOGLOBIN 33.4 pg (27.0-33.0); MEAN CORPUSCULAR HGB CONC 34.8 g/dl (32.0-36.5); PLATELET COUNT, AUTOMATED 174 10^3/uL (150-450); RED BLOOD COUNT 3.26 10^6/uL (4.30-6.10); WHITE BLOOD COUNT 29.4 10^3/uL (4.0-10.0)
[2019-02-12 07:04] LABS: CALCIUM LEVEL 8.2 MG/DL (8.5-10.1); CREATININE FOR GFR 1.36 MG/DL (0.70-1.30); GLOMERULAR FILTRATION RATE 58.6 (>56); POTASSIUM SERUM 4.9 MEQ/L (3.5-5.1)
[2019-02-12] MEDS ORDERED: ONDANSETRON 4MG/2ML VIAL (J2405) IV ONE (08:15)
[2019-02-12] MEDS: SERTRALINE HCL 50 MG TAB PO SCH (08:24)
[2019-02-12] MEDS: DOCUSATE SODIUM 100 MG CAP PO SCH ×2 (08:24→20:31)
[2019-02-12] MEDS: PANTOPRAZOLE 40MG TAB (PROTONIX) PO SCH ×2 (08:24→20:31)
[2019-02-12] MEDS: amLODIPine 5 MG TAB PO SCH (08:24)
--- NOTE | 2019-02-12 08:53 | IPNPDOC ---
Date Seen The patient was seen on 02/12/19. 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 Pt has no personal or family hx/o bleeding or clotting disorder. Lives active lifestyle. He did drive to [facility] over the spring with 2 stops in between, while there reported did a lot of walking. In the ER, pt was found to have extensive DVT on the Left leg and bilateral saddle pulmonary emboli. A STAT echo done in the ER and reported to ER by Dr. Hartmann: dilated LV, dilated IVC and elevated pulmonary artery pressure 64. Patient was admitted for Pulmonary embolism and acute DVT. Vascular Surgery was consulted for DVT/PE. The pt has had several episodes where he feels nausea, sometimes has emesis, sometimes flushing, and lightheadedness. Neurology Clt is pending. This AM nursing reports minimal drainage in HAIR drain Rt arm. PMHx: depression GERD PSHX: pineal cyst removal PE: GEN: 53yoM, appears stated age. HEENT: Normocephalic, atraumatic. Moist mucous membranes. CHEST: Regular rate and rhythm, +S1, +S2 LUNGS: Clear to auscultation bilaterally. No wheezes, rales, or rhonchi. Breathing appears symmetric and easy. ABD: Round, soft, non-tender, non-distended. +Bowel sounds throughout. No rebound or guarding. EXT: No lower extremity edema appreciated. SKIN: RUE bandaged with HAIR drain intact with small amount of bloody sero s anguinous drainage. The pt has nml motor strength and sensation of RUE, wagon person intact. NEURO: Alert and oriented x 3. No focal deficits appreciated. CTA chest Severe bilateral acute pulmonary emboli. Bilateral large saddle emboli identified right and left main pulmonary arteries with suprahilar and infrahilar extension of thrombus. Electronically signed by: Trell Chong On 02/08/2019 19:45:08 PM LE Acute deep venous thrombosis left leg. Severe occlusive thrombus filling and distending the left femoral vein from the mid thigh to the knee. Acute thrombosis filling the popliteal vein with no venous return through the popliteal region. Electronically signed by: Trell Chong On 02/08/2019 17:49:45 PM TTE 02/08/19 CONCLUSIONS: 1. Suggestive of severe elevation of estimated right ventricle systolic pressure (at least 64 mmHg) assuming right atrial pressure of at least 20 mmHg. Pulmonary artery pressure was moderate and estimated to be 52-57 mmHg by pulmonary acceleration time method. At last mild right ventricle dilatation with preserved right ventricle systolic function. Moderate right atrial dilatation. 2. Inferior vena cava dilatation with marked reduction of respiratory variation suggestive of elevated central venous pressure of at least 20 mmHg. 3. Normal left ventricle internal dimensions and wall thickness. Normal regional LV wall motion and wall thickening. Normal LV systolic function. LVEF 60% by visual esimate. Grade1 LV diastolic dysfunction (impaired relaxation filling pattern). 4. Mild dilatation of the aortic root at the level of the sinus of Valsalva (3.9 cm). 5. Very mild aortic valve sclerosis of a 3-cuspid aortic valve. No aortic regurgitation. TTE 02/10/19 CONCLUSIONS: 1. Very limited echocardiogram. 2. Mild LVH with probably hyperdynamic LV systolic function and grade 1 diastolic dysfunction. 3. No insufficiency of left-sided cardiac valves. 4. Unable to estimate pulmonary artery pressure but probably normal central venous pressure. Compared to echocardiogram from 02/08/2019, today's study was of worse quality and we were not able to determine pulmonary artery pressure but grossly based on 2D imaging, I do not appreciate significant change. CTH CT of the brain without IV contrast: There are no comparisons. There is no hemorrhage. There is no edema, mass effect or midline shift. The cortical stripe is unremarkable. The visualized paranasal sinuses and mastoid air cells are clear. Impression: There is no hemorrhage, acute infarct or mass. Negative CT study of the brain. Electronically Signed by Darren Curiel MD 02/10/2019 05:[address] chest Impression: No mediastinal hematoma. No hemothorax. No pulmonary contusion. Calcified granulomas. Right upper extremity PICC line with the tip in the superior vena cava. Electronically Signed by Darren Curiel MD 02/10/2019 06:[address] A/P Impression: No hemoperitoneum. Diverticulosis without diverticulitis. Vena cava filter. In the absence of IV contrast the study is insensitive for intraparenchymal solid organ hematoma. 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 Pt has no personal or family hx/o bleeding or clotting disorder. Lives active lifestyle. He did drive to [facility] over the spring with 2 stops in between, while there reported did a lot of walking. In the ER, pt was found to have extensive DVT on the Left leg and bilateral saddle pulmonary emboli. A STAT echo done in the ER and reported to ER by Dr. Hartmann: dilated LV, dilated IVC and elevated pulmonary artery pressure 64. Troponin is elevated at 2.91. Pt has no clinical signs of heart failure. Patient was admitted for Pulmonary embolism and acute DVT. Vascular Surgery was consulted. Pulmonary embolism and acute DVT. S/P IVC filter 02/09/19 followed by catheter-guided thrombolysis 02/09/[address] Nick. Alteplase gtt d/cd 02/11/19. Heparin gtt per protocol. Hgb 10.9. Hypercoagulable work up pending. S/P 2 u PRBC 02/11/19 Monitor. RUE hematoma S/P evacuation 02/10/19, S/P wound closure 02/11/19. HAIR drain intact. Dressing in place. Pt is afebrile this AM WBC 29.4. IV Zosyn D2 Monitor. Recurrent possible vasovagal episodes. several episodes where he feels nausea, sometimes has emesis, sometimes flushing, and lightheadedness. CT head, chest, abd/pelvis with no acute changes. Carotid US pending. Neurology Clt is pending. A-FIB/CHADSVASC A-FIB History Current/History of A-Fib/PAF?: No VS, I&O, 24H, Fishbone Vital Signs/I&O Vital Signs Date Time Temp Pulse Resp B/P (MAP) Pulse Ox O2 Delivery O2 Flow Rate FiO2 02/12/19 08:24 96 127/78 02/12/19 08:08 96.4 19 95 02/11/19 20:15 2.0 02/11/19 16:10 35 02/10/19 20:50 Nasal Cannula I&O- Last 24 Hours up to 6 AM 02/12/19 06:00 Intake Total 2280.5 ml Output Total 1988 ml Balance 292.5 ml Laboratory Data 24H LABS Laboratory Tests 2 02/11/19 11:00: Fibrinogen 329 02/11/19 18:20: Activated Partial Thromboplast Time 84.0H 02/12/19 00:00: Activated Partial Thromboplast Time 90.0H 02/12/19 06:17: Activated Partial Thromboplast Time 109.5H, Nucleated Red Blood Cells % (auto) 0.2H, Anion Gap 8, Glomerular Filtration Rate 58.6, Blood Urea Nitrogen 29#H, Creatinine 1.36#H, Sodium Level 135L, Potassium Level 4.9, Chloride Level 104, Carbon Dioxide Level 23, Calcium Level 8.2L CBC/BMP Laboratory Tests 02/11/19 11:00 02/12/19 00:00 02/12/19 06:17 Red Blood Count 3.26 L, Mean Corpuscular Volume 96.0, Mean Corpuscular Hemoglobin 33.4 H, Mean Corpuscular Hemoglobin Concent 34.8, Red Cell Distribution Width 14.9 H, Calcium Level 8.2 L Ceci Serra February 12, 2019 08:53
[2019-02-12] MEDS ORDERED: MOM 30ML SUSPENSION UDC PO ONE (09:30)
--- NOTE | 2019-02-12 10:11 | IPN ---
DATE: 02/12/2019 Mr. Huggins has remained hemodynamically stable overnight. He did have an additional episode where he felt nauseous, more so than any other symptom. He had the dry heaves. He felt a little lightheaded at that time. He has not had any further feelings of flushing. No chest pain. He states his left calf continues to feel better. Otherwise no chest pain or pressure, no cough. He continues to note nausea. He has not had a bowel movement since the . He has also not eaten, he states, since Saturday because of his nausea. He is on a regular diet. No fever or chills. He does have an elevated white count. He did go back to the operating room where he had further evacuation of his hematoma yesterday afternoon and his tPA was stopped. He remains on a heparin drip. Mr. Huggins tells us today that he had a seizure history as a child up until perhaps age 11 to 13. He was on antiseizure medication until around age 16. He has not had any seizures since that time. He does not know what was thought to be the origin of his seizures. His also notes that he has been complaining of calf pain for quite some time and she thought he may have been evaluated for it prior to this admission, though we see no other ultrasounds, at least in the [facility] records. OBJECTIVE: GENERAL: Mr. Huggins is lying in bed, in no acute distress. He can complete full sentences. No cough throughout the evaluation. VITAL SIGNS: Temperature 96.4, with a T-max of 98.2, pulse 91, respiratory rate 19, blood pressure 127. Size 78 with a mean arterial pressure (MAP) of 94. SpO2 95% on room air. HEENT: Anicteric. Nares: Patent bilaterally. Moist mucosa. Oropharynx: Clear. No lesions. Good dentition. NECK: Supple. Without thyromegaly. No masses. Trachea is midline. LYMPHATICS: Without cervical or supraclavicular lymphadenopathy. CHEST: Normal shape. LUNGS: Symmetric excursion. Good air entry. No wheeze, rhonchi or crackle on tidal excursion. Normal I:E. No accessory muscle usage or retractions. CARDIOVASCULAR: Regular rate and rhythm with a normal S1, S2. No murmur, rub or gallop appreciated. ABDOMEN: Positive bowel sounds. Soft, nondistended, no hepatosplenomegaly or masses appreciated. EXTREMITIES: Without clubbing or cyanosis, or edema. His lower extremities feel normal temperature today. Stronger pedal pulses bilaterally. LABORATORY DATA: CBC from this morning showed hemoglobin of 10.9, hematocrit 31.3, platelet count 174,000, white blood cell count 29,400. Chemistries: Show sodium 135, potassium 4.9, chloride 104, bicarbonate 23, anion gap 8, BUN 29, creatinine 1.4, glucose 149, calcium 8.2. PTT 109.5. All of the clotting factors are pending. IMPRESSION: 1. Recurrent episodes of nausea, emesis/dry heaves and lightheadedness. It was thought at one time that this may be vasovagal. However, I favor small pieces of clot passing the filter. He does have a remote seizure history so it is reasonable to have neurology evaluate him and they have been consulted. That seems less likely. 2. Pulmonary emboli. He had a saddle emboli on presentation. Etiology remains unknown, but is considered unprovoked at this time. Clotting studies are pending. Status post lytics. 3. Large left deep venous thrombosis (DVT), status post IVC filter. 4. Elevated WBC count. This may simply be secondary to lytics, pulmonary emboli, and deep venous thrombosis (DVT). He has a risk for aspiration though again that seems less likely. I do not know how the wound looks, but I respect Dr. Nick's decision to place him on antibiotics. 5. Status post evacuation of right arm hematoma after lytics. He now has a drain in place. 6. Pulmonary hypertension, moderate, with estimated PA systolic pressure 52 to 57 mmHg on presenting echocardiogram. This is thought in large part secondary to his acute pulmonary embolism (PE). It was not felt that he has chronic pulmonary hypertension although that is still in the differential as he has complained of left calf pain for some time. There may be a component related to untreated sleep apnea if he has that entity. 7. Acute kidney insufficiency, likely prerenal. 8. Possible underlying sleep apnea based on body habitus. He has had a significant weight loss over the past 9 months secondary to the Keto diet. 9. Gastroesophageal reflux disease (GERD). RECOMMENDATIONS: 1. Will obtain a chest x-ray given his dry heaves to make certain there is not an infiltrate, though that seems less likely. 2. Agree with decision for antibiotics. Will defer that to Dr. Nick. 3. He has not had significant intake since he has been here. I am not certain he truly needs TPN support at the present time, but I do feel that he needs IV fluids. His creatinine has increased today and I suspect that is prerenal given that his BUN is also increased (though that may be secondary to bleeding). 4. Given his history of GERD and lytics, some of his nausea may be secondary to gastritis. Would consider increasing his GERD therapy. Would also consider supplementing what intake he will take with Ensure. 5. I spoke with his at length this morning regarding the above and answered all of her questions to the best of my ability. Total time: 30 minutes. CUBA
[2019-02-12] MEDS: PIPERACILLIN/TAZOBACTAM SOD 3.375 GM in D5W MINI-BAG PLUS 50 ML IV SCH ×3 (10:23→20:30)
--- NOTE | 2019-02-12 10:39 | REP ---
Chest x-ray: Two views. History: Chest discomfort. Comparison study: February 08, 2019. Findings: There is a granulomatous calcification in the right mid lung zone and another in the right apex unchanged. Lungs are otherwise well inflated and clear. The pleural angles are sharp. Heart size is normal. Pulmonary vasculature is not increased. There are degenerative changes in the thoracic spine. Impression: No active disease. Electronically Signed by Bebeto Case MD 02/12/2019 10:30 A
--- NOTE | 2019-02-12 11:29 | IPNPDOC ---
Subjective Date Seen The patient was seen on 02/12/19. Subjective Chief Complaint/HPI Patient looks more comfortable today. 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 Right upper extremity under pressure dressing with HAIR drain. Denies any fever or chills, denies any chest pain or sob. Has not had a bowel movement for several days started on bowel regimen. Objective Physical Examination General Exam: Positive: Alert, Cooperative, Mild Distress (due to pain and soreness of the right arm) Eye Exam: Positive: PERRLA, Conjunctiva & lids normal, EOMI ENT Exam: Positive: Atraumatic Neck Exam: Positive: Supple Chest Exam: Positive: Clear to auscultation, Normal air movement Heart Exam: Positive: Rate Normal, Bradycardic, Regular Rhythm, Normal S1, Normal S2; Negative: Irregular Rhythm, Gallops, Murmurs, Rubs Telemetry: Positive: No significant arrhythmia, Sinus, Bradycardia Abdomen Exam: Positive: Normal bowel sounds, Soft; Negative: Tenderness, Hepatospenomegaly, Hernia, Other Extremity Exam: Positive: Tenderness (left calf, and right groin and right arm), Swelling (right arm , left calf), Other (right arm with large hematome with HAIR drain, decreased right dorsalis pedis pulse only heard by doppler); Negative: Clubbing, Cyanosis, Edema Skin Exam: Positive: Other skin issue (large bruising and hematoma in darren whole right arm extending upto the axilla) Neuro Exam: Positive: Normal Speech, Strength at 5/5 X4 ext, Normal Tone Psych Exam: Positive: Mental status NL, Mood NL Assessment /Plan Assessment 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 Pt has no personal or family hx/o bleeding or clotting disorder. Lives active lifestyle. He did drive to [facility] over the spring break with 2 stops in between. And there they did a lot of walking. In the ER, pt was found to have extensive DVT on the Left leg and bilateral saddle pulmonary emboli. A STAT echo done in the ER and reported to ER by Dr. Hartmann: dilated LV, dilated IVC and elevated pulmonary artery pressure 64. Troponin is elevated at 2.91. Pt has no clinical signs of heart failure. Patient was admitted for Pulmonary embolism and acute DVT. Recurrent vasovagal episodes probably due to episodes of large amount of bleeding into the arm causing a huge hematoma had evacuation of hematoma done on 02/10/19 and placement of a wound vac on 02/11/19 wound vac was removed and wound was closed over a HAIR drain. Alteplace was stopped. About 30 cc drainage overnight. Was over a 1000cc the night before. Neurology has been consulted Right arm Large hematoma evacuated and now wound closed over a HAIR drain. Leucocytosis started empirically on antibiotics as high possibility of the hematoma area to g et infected. Pati due to loss from the bleeding and poor oral intake started on IVF. Decreased dorsalis pedis pulse on the right palpable today but difficult. Easily heard with doppler. All the other lower extremity pulses are easily palpable Pulmonary embolism and acute DVT seems to be unprovoked DVT S/p IVC filter on 02/09/19 followed by Intraclot catheter-guided thrombolysis started this morning on 02/09/19 on heparin and alteplace infusion Hypercoagulable work up has been sent. will be going home with oral anticoagulants. Fibrinogen levels q 6h, aptt and Hb/HCT q6 hours. Acute pulmonary hypertension due to pulmonary embolism Elevated troponin due to right ventricular strain due to pulmonary embolism. now improved. DVT on heparin infusion and has ivc filter in place. Morbid obesity complicating care. Plan/VTE VTE Prophylaxis Ordered?: Yes VTE Exclusion Mechanical Proph: Patient on IV Heparin VTE Exclusion Pharmacological: IV Heparin Therapy VS, I&O, 24H, Fishbone Vital Signs/I&O Vital Signs Date Time Temp Pulse Resp B/P (MAP) Pulse Ox O2 Delivery O2 Flow Rate FiO2 02/12/19 08:24 96 127/78 02/12/19 08:08 96.4 19 95 02/11/19 20:15 2.0 02/11/19 16:10 35 02/10/19 20:50 Nasal Cannula I&O- Last 24 Hours up to 6 AM 02/12/19 06:00 Intake Total 2280.5 ml Output Total 1988 ml Balance 292.5 ml Laboratory Data 24H LABS Laboratory Tests 2 02/11/19 18:20: Activated Partial Thromboplast Time 84.0H 02/12/19 00:00: Activated Partial Thromboplast Time 90.0H 02/12/19 06:17: Activated Partial Thromboplast Time 109.5H, Nucleated Red Blood Cells % (auto) 0.2H, Anion Gap 8, Glomerular Filtration Rate 58.6, Blood Urea Nitrogen 29#H, Creatinine 1.36#H, Sodium Level 135L, Potassium Level 4.9, Chloride Level 104, Carbon Dioxide Level 23, Calcium Level 8.2L CBC/BMP Laboratory Tests 02/12/19 00:00 02/12/19 06:17 Red Blood Count 3.26 L, Mean Corpuscular Volume 96.0, Mean Corpuscular Hemoglobin 33.4 H, Mean Corpuscular Hemoglobin Concent 34.8, Red Cell Distribution Width 14.9 H, Calcium Level 8.2 L ALDEN SOSA MD February 12, 2019 11:29
[2019-02-12] MEDS: FLEET OIL RETENTION ENEMA PR PRN (12:02)
[2019-02-12 12:23] LABS: HEMATOCRIT 28.4 % (42.0-52.0); HEMOGLOBIN 9.9 g/dl (13.5-17.5)
[2019-02-12 12:45] LABS: CALCIUM LEVEL 8.5 MG/DL (8.5-10.1); CREATININE FOR GFR 1.35 MG/DL (0.70-1.30); GLOMERULAR FILTRATION RATE 59.1 (>56); POTASSIUM SERUM 4.4 MEQ/L (3.5-5.1)
[2019-02-12] MEDS ORDERED: NORCO, ANEXSIA 5/325MG TABLET (HYDROcodone/ACETAMINOPHEN) PO PRN (13:30)
[2019-02-12] MEDS: HEPARIN DRIP 25,000 UNITS in APPROPRIATE DILUENT 1 EA IV SCH (14:02)
--- NOTE | 2019-02-12 14:16 | REP ---
Duplex carotid sonography: History: Neurologic changes. Findings: Antegrade flow was observed in both vertebral arteries. Right carotid: The right common carotid artery is unremarkable with mild diffuse intimal thickening. Minimal soft plaquing is seen in the right carotid bulb and proximal ICA. Color flow and spectral Doppler interrogation are unremarkable on the right. Velocity chart right carotid: CCA PSV 111 cm/s ICA PSV 121 cm/s ICA EDV 43 cm/s ECA PSV 105 cm/s Right ICA/CCA ratio normal 1.09. Impression: 0-15% category narrowing in the right ICA by Doppler velocity criteria. Left carotid: There is diffuse intimal thickening in the left common and internal carotid arteries. There is mild soft plaquing on the left. Color flow and spectral Doppler interrogation are unremarkable on the left. Velocity chart left carotid: CCA PSV 118 cm/s ICA PSV 138 cm/s ICA EDV 64 cm/s ECA PSV 95 cm/s Left ICA/CCA ratio normal 1.17. Impression: 16-49% category narrowing in the left ICA by Doppler velocity, near the lower end of this range. Electronically Signed by Bebeto Case MD 02/12/2019 08:02 P
[2019-02-12 14:26] LABS: HEMOGLOBIN A1c 4.6 %
[2019-02-12] MEDS ORDERED: MAGNESIUM CITRATE 300 ML BTL PO ONE (15:00)
[2019-02-12 18:37] LABS: HEMATOCRIT 27.1 % (42.0-52.0); HEMOGLOBIN 9.5 g/dl (13.5-17.5)
--- NOTE | 2019-02-12 19:02 | ECGEPIP ---
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
[2019-02-12] MEDS: SENNA 8.6 MG TAB (SENOKOT) PO SCH (20:31)
[2019-02-13] VITALS (19 sets, daily range): BP systolic 114–151; BP diastolic 52–78
[2019-02-13 00:14] LABS: HEMATOCRIT 25.4 % (42.0-52.0); HEMOGLOBIN 8.7 g/dl (13.5-17.5)
[2019-02-13] MEDS ORDERED: zolPIDEM TARTRATE 5 MG TAB PO ONE (00:30)
[2019-02-13] MEDS ORDERED: PILL CUTTER 1 EACH XX PRN (00:45)
[2019-02-13] MEDS: D5W/0.45% SODIUM CHLORIDE 1,000 ML IV SCH (03:00)
[2019-02-13] MEDS: PIPERACILLIN/TAZOBACTAM SOD 3.375 GM in D5W MINI-BAG PLUS 50 ML IV SCH ×4 (03:30→21:13)
[2019-02-13 06:00] LABS: HEMATOCRIT 23.9 % (42.0-52.0); HEMOGLOBIN 8.1 g/dl (13.5-17.5); MEAN CORPUSCULAR HEMOGLOBIN 32.7 pg (27.0-33.0); MEAN CORPUSCULAR HGB CONC 33.9 g/dl (32.0-36.5); MEAN CORPUSCULAR VOLUME 96.4 fl (80.0-96.0); PLATELET COUNT, AUTOMATED 157 10^3/uL (150-450); RED BLOOD COUNT 2.48 10^6/uL (4.30-6.10); WHITE BLOOD COUNT 24.2 10^3/uL (4.0-10.0)
[2019-02-13] MEDS: SODIUM CHLORIDE 0.9% INJ 10 ML SYR IV SCH ×2 (06:00→18:36)
[2019-02-13 06:23] LABS: BLOOD UREA NITROGEN 23 MG/DL (7-18); CALCIUM LEVEL 8.9 MG/DL (8.5-10.1); CARBON DIOXIDE LEVEL 28 MEQ/L (21-32); CHLORIDE LEVEL 104 MEQ/L (98-107); CREATININE FOR GFR 1.23 MG/DL (0.70-1.30); GLOMERULAR FILTRATION RATE > 60.0 (>56); GLUCOSE, FASTING 105 MG/DL (70-100); POTASSIUM SERUM 4.3 MEQ/L (3.5-5.1); SODIUM LEVEL 135 MEQ/L (136-145)
[2019-02-13] MEDS ORDERED: HEPARIN SOD (PORCINE) 5000 UNITS/ML VIAL IV ONE (06:30)
[2019-02-13] MEDS: HEPARIN DRIP 25,000 UNITS in APPROPRIATE DILUENT 1 EA IV SCH ×2 (06:53→21:11)
--- NOTE | 2019-02-13 07:00 | CR ---
DATE OF CONSULTATION: 02/12/2019 REFERRING PHYSICIAN: Dr. Ana Luisa Saini REASON FOR CONSULTATION: Passing out spell. HISTORY OF PRESENT ILLNESS: Osiel Huggins is a 53-year-old man who was admitted at [facility] due to left leg extensive deep venous thrombosis (DVT) and bilateral pulmonary embolism with moderate pulmonary hypertension and dilated right ventricle due to pulmonary embolism. He also developed right arm hematoma after central venous line placement. Hematoma was drained by Dr. Nick. He had he had four episodes of passing out and almost passing out. In all of these episodes the patient felt lightheadedness and tunnel vision. In two of these episodes he did actually pass out. Some of these episodes were seen by his and others were seen by the nurses. Two of them happened with severe right arm pain and some of them happened when he was actively bleeding in his right arm. They lasted for 30 - 60 seconds. He would feel lightheadedness, nausea, followed by eyes rolling back and eyelid twitches. In two of these episodes he lost consciousness for 30 - 60 seconds. In others he remained conscious but felt nearly passing out. They mostly happened when he was sitting in a chair or in bed. There was no shaking of the body although in one episode nurses noted that his upper body tensed up slightly. There is no postictal phase except slight fatigue for a minute or two afterwards. There is no tongue biting or urinary incontinence. The patient had staring type seizures between age 4-12 years and was treated with Dilantin in the past. PAST MEDICAL HISTORY: Recent left leg deep venous thrombosis (DVT) and pulmonary embolism, acid reflux, anxiety, allergic rhinitis. CURRENT MEDICATIONS: Tylenol PM 2 tablets by mouth at bedtime as needed, Nexium 20 mg by mouth daily, Zoloft 50 mg by mouth daily. SOCIAL HISTORY: . 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 He does not smoke. FAMILY HISTORY: No family history of thromboembolic disease. REVIEW OF SYSTEMS: All systems were reviewed and found to be noncontributory except as mentioned in the history of present illness. PHYSICAL EXAMINATION: Temperature 97.7, pulse 80, respiratory 20, blood pressure 150/70, heart regular rate and rhythm. Lungs: Clear to auscultation. Abdomen: Soft, nontender, nondistended. No pedal edema. No musculoskeletal abnormalities. No rash. No signs of meningeal irritation. The patient is awake, alert, oriented to place, person and time. Normal speech comprehension and repetition. Extraocular muscles are intact. No facial weakness. Tongue and uvula are midline. 5/5 strength in all four extremities. Deep tendon flexes 2+ throughout. Normal sensation. Gait could not be tested. Recent and distant memory is intact. Visual rodriguez are full to confrontation. DIAGNOSTIC STUDIES: CT scan of head was unremarkable. Ultrasound of carotid arteries showed less than 15% right and 16-49% stenosis of left internal carotid artery. His hemoglobin decreased from 16.1 to 9.5. PTT range with an 65.8-109.5. Creatinine is 1.35. ASSESSMENT: 1. Suspected vasovagal syncope triggered by pain and bleeding in the setting of recent left leg DVT and pulmonary embolism with elevated right ventricular and pulmonary artery pressures. 2. History of seizures in childhood which resolved after a few years. PLAN: 1. EEG. 2. My index of suspicion for these episodes to be seizures is low. Antiepileptic medications only if EEG is suggestive of epileptic potential.
[2019-02-13] MEDS: amLODIPine 5 MG TAB PO SCH (08:47)
[2019-02-13] MEDS: PANTOPRAZOLE 40MG TAB (PROTONIX) PO SCH ×2 (08:47→21:13)
[2019-02-13] MEDS: DOCUSATE SODIUM 100 MG CAP PO SCH ×2 (08:47→21:00)
[2019-02-13] MEDS: SERTRALINE HCL 50 MG TAB PO SCH (08:48)
--- NOTE | 2019-02-13 11:17 | IPNPDOC ---
Date Seen The patient was seen on 02/13/19. 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 Pt has no personal or family hx/o bleeding or clotting disorder. Lives active lifestyle. He did drive to [facility] over the spring with 2 stops in between, while there reported did a lot of walking. In the ER, pt was found to have extensive DVT on the Left leg and bilateral saddle pulmonary emboli. A STAT echo done in the ER and reported to ER by Dr. Hartmann: dilated LV, dilated IVC and elevated pulmonary artery pressure 64. Patient was admitted for Pulmonary embolism and acute DVT. Vascular Surgery was consulted for DVT/PE. RUE with HAIR drain intact with 55 mL drainage 02/12/19. PMHx: depression GERD PSHX: pineal cyst removal PE: GEN: 53yoM, appears stated age. HEENT: Normocephalic, atraumatic. Moist mucous membranes. CHEST: Regular rate and rhythm, +S1, +S2 LUNGS: Clear to auscultation bilaterally. No wheezes, rales, or rhonchi. Breathi ng appears symmetric and easy. ABD: Round, soft, non-tender, non-distended. +Bowel sounds throughout. No rebound or guarding. EXT: No lower extremity edema appreciated. SKIN: RUE bandaged with HAIR drain intact. The pt has nml motor strength and sensation of RUE, flat sorter processor intact. NEURO: Alert and oriented x 3. No focal deficits appreciated. CTA chest Severe bilateral acute pulmonary emboli. Bilateral large saddle emboli identified right and left main pulmonary arteries with suprahilar and infrahilar extension of thrombus. Electronically signed by: Trell Chong On 02/08/2019 19:45:08 PM LE US Acute deep venous thrombosis left leg. Severe occlusive thrombus filling and distending the left femoral vein from the mid thigh to the knee. Acute thrombosis filling the popliteal vein with no venous return through the popliteal region. Electronically signed by: Trell Chong On 02/08/2019 17:49:45 PM TTE 02/08/19 CONCLUSIONS: 1. Suggestive of severe elevation of estimated right ventricle systolic pressure (at least 64 mmHg) assuming right atrial pressure of at least 20 mmHg. Pulmon noe artery pressure was moderate and estimated to be 52-57 mmHg by pulmonary acceleration time method. At last mild right ventricle dilatation with preserved right ventricle systolic function. Moderate right atrial dilatation. 2. Inferior vena cava dilatation with marked reduction of respiratory variation suggestive of elevated central venous pressure of at least 20 mmHg. 3. Normal left ventricle internal dimensions and wall thickness. Normal regional LV wall motion and wall thickening. Normal LV systolic function. LVEF 60% by visual esimate. Grade1 LV diastolic dysfunction (impaired relaxation filling pattern). 4. Mild dilatation of the aortic root at the level of the sinus of Valsalva (3.9 cm). 5. Very mild aortic valve sclerosis of a 3-cuspid aortic valve. No aortic regurgitation. TTE 02/10/19 CONCLUSIONS: 1. Very limited echocardiogram. 2. Mild LVH with probably hyperdynamic LV systolic function and grade 1 diastolic dysfunction. 3. No insufficiency of left-sided cardiac valves. 4. Unable to estimate pulmonary artery pressure but probably normal central venous pressure. Compared to echocardiogram from 02/08/2019, today's study was of worse quality and we were not able to determine pulmonary artery pressure but grossly based on 2D imaging, I do not appreciate significant change. CTH CT of the brain without IV contrast: There are no comparisons. There is no hemorrhage. There is no edema, mass effect or midline shift. The cortical stripe is unremarkable. The visualized paranasal sinuses and mastoid air cells are clear. Impression: There is no hemorrhage, acute infarct or mass. Negative CT study of the brain. Electronically Signed by Darren Curiel MD 02/10/2019 05:[address] chest Impression: No mediastinal hematoma. No hemothorax. No pulmonary contusion. Calcified granulomas. Right upper extremity PICC line with the tip in the superior vena cava. Electronically Signed by Darren Curiel MD 02/10/2019 06:[address] A/P Impression: No hemoperitoneum. Diverticulosis without diverticulitis. Vena cava filter. In the absence of IV contrast the study is insensitive for intraparenchymal solid organ hematoma. 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 Pt has no personal or family hx/o bleeding or clotting disorder. Lives active lifestyle. He did drive to [facility] over the spring break with 2 stops in between, while there reported did a lot of walking. In the ER, pt was found to have extensive DVT on the Left leg and bilateral saddle pulmonary emboli. A STAT echo done in the ER and reported to ER by Dr. Hartmann: dilated LV, dilated IVC and elevated pulmonary artery pressure 64. Troponin is elevated at 2.91. Pt has no clinical signs of heart failure. Patient was admitted for Pulmonary embolism and acute DVT. Vascular Surgery was consulted. Pulmonary embolism and acute DVT. S/P IVC filter 02/09/19 followed by catheter-guided thrombolysis 02/09/[address] Nick. Alteplase gtt d/cd 02/11/19. Hypercoagulable work up pending. Stool occult blood 1 negative. S/P 2 u PRBC 02/11/19 Hemoglobin this a.m. 8.1. Monitor need for transfusion. Continue with Heparin gtt per protocol. Reviewed patient with Dr. Nick this a.m. Plan to initiate Coumadin 10 mg by mouth 1 today. Continue heparin drip until INR therapeutic. Goal INR 2.5-3.5. Monitor daily PT/INR. Monitor. RUE hematoma S/P evacuation 02/10/19, S/P wound closure 02/11/19. HAIR drain intact. Dressing in place. Pt is afebrile this AM WBC 24.2 IV Zosyn D3 Monitor. Recurrent possible vasovagal episodes. several episodes where he feels nausea, sometimes has emesis, sometimes flushing, and lightheadedness. CT head, chest, abd/pelvis with no acute changes. Carotid US 02/12/19. 0-15% category narrowing in the right ICA by Doppler velocity criteria. 16-49% category narrowing in the left ICA by Doppler velocity, near the lower end of this range. Electronically Signed by Bebeto Case MD 02/12/2019 08:02 P Neurology Clt is appreciated EEG pending.. A-FIB/CHADSVASC A-FIB History Current/History of A-Fib/PAF?: No VS, I&O, 24H, Fishbone Vital Signs/I&O Vital Signs Date Time Temp Pulse Resp B/P (MAP) Pulse Ox O2 Delivery O2 Flow Rate FiO2 02/13/19 10:00 83 151/70 (97) 90 02/13/19 08:00 97.0 16 02/11/19 20:15 2.0 02/11/19 16:10 35 02/10/19 20:50 Nasal Cannula I&O- Last 24 Hours up to 6 AM 02/13/19 06:00 Intake Total 2471 ml Output Total 1628 ml Balance 843 ml Laboratory Data 24H LABS Laboratory Tests 2 02/12/19 11:51: Activated Partial Thromboplast Time 79.3H, Anion Gap 7L, Glomerular Filtration Rate 59.1, Estimated Mean Plasma Glucose 85, Hemoglobin A1c 4.6, Blood Urea Nitrogen 31H, Creatinine 1.35H, Sodium Level 134L, Potassium Level 4.4, Chloride Level 103, Carbon Dioxide Level 24, Calcium Level 8.5 02/12/19 18:01: Activated Partial Thromboplast Time 65.5H 02/12/19 23:29: Activated Partial Thromboplast Time 48.6H 02/13/19 05:42: Activated Partial Thromboplast Time 47.2H, Anion Gap 3L, Glomerular Filtration Rate > 60.0, Blood Urea Nitrogen 23H, Creatinine 1.23, Sodium Level 135L, Potassium Level 4.3, Chloride Level 104, Carbon Dioxide Level 28, Calcium Level 8.9, Nucleated Red Blood Cells % (auto) 1.0H CBC/BMP Laboratory Tests 02/12/19 11:51 Calcium Level 8.5 02/12/19 18:01 02/12/19 23:29 02/13/19 05:42 Calcium Level 8.9, Red Blood Count 2.48 L, Mean Corpuscular Volume 96.4 H, Mean Corpuscular Hemoglobin 32.7, Mean Corpuscular Hemoglobin Concent 33.9, Red Cell Distribution Width 14.9 H Microbiology Microbiology 02/12/19 Stool Occult Blood (JANNETTE) - Final, Complete Ceci Serra February 13, 2019 11:17
[2019-02-13 11:48] LABS: HEMATOCRIT 23.4 % (42.0-52.0); HEMOGLOBIN 8.1 g/dl (13.5-17.5)
[2019-02-13 12:04] LABS: INR 1.18; PROTHROMBIN TIME 15.2 SECONDS (12.1-14.4)
[2019-02-13 12:06] LABS: PARTIAL THROMBOPLASTIN TIME 97.2 SECONDS (25.4-37.6)
[2019-02-13 14:11] LABS: PROTEIN C ANTIGEN 73 % (60-150); PROTEIN S ANTIGEN FREE 134 % (57-157); PROTEIN S ANTIGEN TOTAL 82 % (60-150)
--- NOTE | 2019-02-13 15:33 | IPNPDOC ---
Subjective Date Seen The patient was seen on 02/13/19. Subjective Chief Complaint/HPI Patient feels better today. Did not have any vasovagal spells last night. had a relatively good night and could sleep. His arm pain and swelling is improving. No fever or chills. Had normal breakfast. Had 2 large bowel movements. Objective Physical Examination General Exam: Positive: Alert, Cooperative, Mild Distress (due to pain and soreness of the right arm) Eye Exam: Positive: PERRLA, Conjunctiva & lids normal, EOMI ENT Exam: Positive: Atraumatic Neck Exam: Positive: Supple Chest Exam: Positive: Clear to auscultation, Normal air movement Heart Exam: Positive: Rate Normal, Bradycardic, Regular Rhythm, Normal S1, Normal S2; Negative: Irregular Rhythm, Gallops, Murmurs, Rubs Telemetry: Positive: No significant arrhythmia, Sinus, Bradycardia Abdomen Exam: Positive: Normal bowel sounds, Soft; Negative: Tenderness, Hepatospenomegaly, Hernia, Other Extremity Exam: Positive: Tenderness (left calf, and right groin and right arm), Swelling (right arm , left calf), Other (right arm with large hematome with HAIR drain, decreased right dorsalis pedis pulse only heard by doppler); Negative: Clubbing, Cyanosis, Edema Skin Exam: Positive: Other skin issue (large bruising and hematoma in darren whole right arm extending upto the axilla) Neuro Exam: Positive: Normal Speech, Strength at 5/5 X4 ext, Normal Tone Psych Exam: Positive: Mental status NL, Mood NL Assessment /Plan Assessment 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 Pt has no personal or family hx/o bleeding or clotting disorder. Lives active lifestyle. He did drive to [facility] over the spring break with 2 stops in between. And there they did a lot of walking. In the ER, pt was found to have extensive DVT on the Left leg and bilateral saddle pulmonary emboli. A STAT echo done in the ER and reported to ER by Dr. Hartmann: dilated LV, dilated IVC and elevated pulmonary artery pressure 64. Troponin is elevated at 2.91. Pt has no clinical signs of heart failure. Patient was admitted for Pulmonary embolism and acute DVT. Recurrent vasovagal episodes probably precipitated by large amount of bleeding into the arm and pain Neurology consult appreciated. Suspicion for seizures is low. However is getting an EEG as has h/o seizures in childhood. Right arm Large hematoma had evacuation of hematoma done on 02/10/19 and placement of a wound vac on 02/11/19 wound vac was removed and wound was closed over a HAIR drain. Acute blood loss anemia due to bleeding into the right arm at the site of picc line in the context of being on alteplace and heparin. received 2 unit PRBC HH low but stable will give 1 unit of PRBC today. Leucocytosis started empirically on antibiotics as high possibility of the hematoma area to get infected. Pati due to loss from the bleeding and poor oral intake resolved. will stop IVF. Pulmonary embolism and acute DVT seems to be unprovoked DVT S/p IVC filter on 02/09/19 followed by Intraclot catheter-guided thrombolysis started this morning on 02/09/19 on heparin and alteplace infusion Hypercoagulable work up has been sent. will be going home with oral anticoagulants. aptt and Hb/HCT q6 hours. Acute pulmonary hypertension due to pulmonary embolism Elevated troponin due to right ventricular strain due to pulmonary embolism. now improved. DVT on heparin infusion and has ivc filter in place. Morbid obesity complicating care. Plan/VTE VTE Prophylaxis Ordered?: Yes VTE Exclusion Mechanical Proph: Patient on IV Heparin VTE Exclusion Pharmacological: IV Heparin Therapy VS, I&O, 24H, Fishbone Vital Signs/I&O Vital Signs Date Time Temp Pulse Resp B/P (MAP) Pulse Ox O2 Delivery O2 Flow Rate FiO2 02/13/19 11:00 97.0 73 16 133/57 (82) 02/13/19 10:00 90 02/11/19 20:15 2.0 02/11/19 16:10 35 02/10/19 20:50 Nasal Cannula I&O- Last 24 Hours up to 6 AM 02/13/19 06:00 Intake Total 2471 ml Output Total 1628 ml Balance 843 ml Laboratory Data 24H LABS Laboratory Tests 2 02/12/19 18:01: Activated Partial Thromboplast Time 65.5H 02/12/19 23:29: Activated Partial Thromboplast Time 48.6H 02/13/19 05:42: Activated Partial Thromboplast Time 47.2H, Nucleated Red Blood Cells % (auto) 1.0H, Anion Gap 3L, Glomerular Filtration Rate > 60.0, Blood Urea Nitrogen 23H, Creatinine 1.23, Sodium Level 135L, Potassium Level 4.3, Chloride Level 104, Carbon Dioxide Level 28, Calcium Level 8.9 02/13/19 11:23: Activated Partial Thromboplast Time 97.2H, Prothrombin Time 15.2H, Prothromb Time International Ratio 1.18 CBC/BMP Laboratory Tests 02/12/19 18:01 02/12/19 23:29 02/13/19 05:42 Red Blood Count 2.48 L, Mean Corpuscular Volume 96.4 H, Mean Corpuscular Hemoglobin 32.7, Mean Corpuscular Hemoglobin Concent 33.9, Red Cell Distribution Width 14.9 H, Calcium Level 8.9 02/13/19 11:23 Microbiology Microbiology 02/12/19 Stool Occult Blood (JANNETTE) - Final, Complete ALDEN SOSA MD February 13, 2019 15:33
[2019-02-13] MEDS ORDERED: WARFARIN SOD 5 MG TAB PO ONE (17:00)
[2019-02-13] MEDS: SENNA 8.6 MG TAB (SENOKOT) PO SCH (21:00)
[2019-02-13] MEDS: diphenhydrAMINE 50 MG CAP PO PRN (21:13)
[2019-02-14] MEDS: PIPERACILLIN/TAZOBACTAM SOD 3.375 GM in D5W MINI-BAG PLUS 50 ML IV SCH ×4 (03:19→20:07)
[2019-02-14 04:00] VITALS: BP 128/68
[2019-02-14] MEDS: SODIUM CHLORIDE 0.9% INJ 10 ML SYR IV SCH ×2 (05:39→17:35)
[2019-02-14 06:10] LABS: INR 1.19; PROTHROMBIN TIME 15.3 SECONDS (12.1-14.4)
[2019-02-14 06:12] LABS: PARTIAL THROMBOPLASTIN TIME 111.7 SECONDS (25.4-37.6)
[2019-02-14 08:00] VITALS: BP 132/75
[2019-02-14] MEDS: amLODIPine 5 MG TAB PO SCH (09:10)
[2019-02-14] MEDS: SERTRALINE HCL 50 MG TAB PO SCH (09:10)
[2019-02-14] MEDS: PANTOPRAZOLE 40MG TAB (PROTONIX) PO SCH ×2 (09:10→20:07)
[2019-02-14] MEDS: DOCUSATE SODIUM 100 MG CAP PO SCH ×2 (09:11→20:07)
[2019-02-14 09:26] LABS: HEMATOCRIT 23.9 % (42.0-52.0); MEAN CORPUSCULAR HEMOGLOBIN 33.2 pg (27.0-33.0); MEAN CORPUSCULAR HGB CONC 33.5 g/dl (32.0-36.5); MEAN CORPUSCULAR VOLUME 99.2 fl (80.0-96.0); PLATELET COUNT, AUTOMATED 141 10^3/uL (150-450); RED BLOOD COUNT 2.41 10^6/uL (4.30-6.10); WHITE BLOOD COUNT 12.4 10^3/uL (4.0-10.0)
[2019-02-14 09:50] LABS: BLOOD UREA NITROGEN 15 MG/DL (7-18); CALCIUM LEVEL 8.4 MG/DL (8.5-10.1); CARBON DIOXIDE LEVEL 29 MEQ/L (21-32); CHLORIDE LEVEL 110 MEQ/L (98-107); CREATININE FOR GFR 0.98 MG/DL (0.70-1.30); GLOMERULAR FILTRATION RATE > 60.0 (>56); GLUCOSE, FASTING 93 MG/DL (70-100); POTASSIUM SERUM 4.2 MEQ/L (3.5-5.1); SODIUM LEVEL 140 MEQ/L (136-145)
--- NOTE | 2019-02-14 10:13 | IPNPDOC ---
Subjective Date Seen The patient was seen on 02/14/19. Subjective Chief Complaint/HPI Patient feels much better today. Does not have any pain. THe HAIR drain had only 10 cc overnight. Denies nay SOb. he has been out of bed and working with PT . No fever or chills, no cough or phlegm, No leg pain Objective Physical Examination General Exam: Positive: Alert, Cooperative, Mild Distress (due to pain and soreness of the right arm) Eye Exam: Positive: PERRLA, Conjunctiva & lids normal, EOMI ENT Exam: Positive: Atraumatic Neck Exam: Positive: Supple Chest Exam: Positive: Clear to auscultation, Normal air movement Heart Exam: Positive: Rate Normal, Bradycardic, Regular Rhythm, Normal S1, Normal S2; Negative: Irregular Rhythm, Gallops, Murmurs, Rubs Telemetry: Positive: No significant arrhythmia, Sinus, Bradycardia Abdomen Exam: Positive: Normal bowel sounds, Soft; Negative: Tenderness, Hepatospenomegaly, Hernia, Other Extremity Exam: Positive: Tenderness (left calf, and right groin and right arm), Swelling (right arm , left calf), Other (right arm with large hematome with HAIR drain, decreased right dorsalis pedis pulse only heard by doppler); Negative: Clubbing, Cyanosis, Edema Skin Exam: Positive: Other skin issue (large bruising and hematoma in darren whole right arm extending upto the axilla) Neuro Exam: Positive: Normal Speech, Strength at 5/5 X4 ext, Normal Tone Psych Exam: Positive: Mental status NL, Mood NL Assessment /Plan Assessment 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 Pt has no personal or family hx/o bleeding or clotting disorder. Lives active lifestyle. He did drive to [facility] over the spring break with 2 stops in between. And there they did a lot of walking. In the ER, pt was found to have extensive DVT on the Left leg and bilateral saddle pulmonary emboli. A STAT echo done in the ER and reported to ER by Dr. Hartmann: dilated LV, dilated IVC and elevated pulmonary artery pressure 64. Troponin is elevated at 2.91. Pt has no clinical signs of heart failure. Patient was admitted for Pulmonary embolism and acute DVT. Recurrent vasovagal episodes probably precipitated by large amount of bleeding into the arm and pain Neurology consult appreciated. Suspicion for seizures is low. However is getting an EEG as has h/o seizures in childhood. Right arm Large hematoma had evacuation of hematoma done on 02/10/19 and placement of a wound vac on 02/11/19 wound vac was removed and wound was closed over a HAIR drain. Acute blood loss anemia due to bleeding into the right arm at the site of picc line in the context of being on alteplace and heparin. received 3 unit PRBC Hb unchanged seems to be equilibrating will order 2 more units today. Leucocytosis improving started empirically on antibiotics as high possibility of the hematoma area to get infected. Pati due to loss from the bleeding and poor oral intake resolved. Pulmonary embolism and acute DVT Hypercoagulable work up has been sent. seems to be unprovoked DVT S/p IVC filter on 02/09/19 followed by Intraclot catheter-guided thrombolysis started on 02/09/19 on heparin and alteplace infusion. Now only on heparin gtt and coumadin. will be going home with coumadin. Acute pulmonary hypertension due to pulmonary embolism Elevated troponin due to right ventricular strain due to pulmonary embolism. now improved. DVT on heparin infusion and has ivc filter in place. Morbid obesity complicating care. Plan/VTE VTE Prophylaxis Ordered?: Yes VTE Exclusion Mechanical Proph: Patient on IV Heparin VTE Exclusion Pharmacological: IV Heparin Therapy VS, I&O, 24H, Simeonbonjeannette Vital Signs/I&O Vital Signs Date Time Temp Pulse Resp B/P (MAP) Pulse Ox O2 Delivery O2 Flow Rate FiO2 02/14/19 09:10 60 132/75 02/14/19 08:00 98.3 16 95 02/11/19 20:15 2.0 02/11/19 16:10 35 02/10/19 20:50 Nasal Cannula I&O- Last 24 Hours up to 6 AM 02/14/19 06:00 Intake Total 3302 ml Output Total 3060 ml Balance 242 ml Laboratory Data 24H LABS Laboratory Tests 2 02/13/19 11:23: Prothrombin Time 15.2H, Prothromb Time International Ratio 1.18, Activated Partial Thromboplast Time 97.2H 02/13/19 18:00: Activated Partial Thromboplast Time 72.6H 02/14/19 00:07: Activated Partial Thromboplast Time 100.7H 02/14/19 05:48: Prothrombin Time 15.3H, Prothromb Time International Ratio 1.19, Activated Partial Thromboplast Time 111.7H 02/14/19 09:16: Nucleated Red Blood Cells % (auto) 1.5H, Anion Gap 1L, Glomerular Filtration Rate > 60.0, Blood Urea Nitrogen 15, Creatinine 0.98, Sodium Level 140, Potassium Level 4.2, Chloride Level 110H, Carbon Dioxide Level 29, Calcium Level 8.4L CBC/BMP Laboratory Tests 02/13/19 11:23 02/14/19 09:16 Red Blood Count 2.41 L, Mean Corpuscular Volume 99.2 H, Mean Corpuscular Hemoglobin 33.2 H, Mean Corpuscular Hemoglobin Concent 33.5, Red Cell Distribution Width 17.0 H, Calcium Level 8.4 L Microbiology Microbiology 02/12/19 Stool Occult Blood (JANNETTE) - Final, Complete ALDEN SOSA MD February 14, 2019 10:13
--- NOTE | 2019-02-14 11:51 | EEG ---
DATE OF PROCEDURE: 02/13/2019 REFERRING PHYSICIAN: Dr. Luciano Bhardwaj DIAGNOSIS: Passing out spell. EEG NUMBER: [id number] HISTORY: Patient is a 53-year-old man who was admitted at [facility] due to deep venous thrombosis (DVT) and pulmonary embolism and right arm hematoma. This EEG was done to rule out epileptic potential. Patient had a couple of passing out spells. He is currently taking Zosyn, heparin, Zoloft, amlodipine, Protonix, Ambien, Coumadin. TECHNICAL DESCRIPTION: This digital EEG was recorded by 21 scalp, ear and two EKG electrodes and was reviewed in bipolar and referential montages following reformatting in 10-20 international electrode placement system. INTERPRETATION: Patient was noted to be in awake and drowsy states during this EEG. Resting awake background rhythm consisted of 9 Hz alpha activity measuring 15-40 microvolts in amplitude, which was symmetric and reactive to eye opening. Anteriorly low voltage and mixed frequency activity was noted. Attenuation of posterior dominant rhythm was seen during transition into drowsiness. Stage I sleep was recorded. Hyperventilation could not be performed. Photic stimulation remained unremarkable. EKG revealed normal sinus rhythm. No focal, lateralizing or epileptiform abnormalities were seen. No clinical or electrographic seizures were recorded. CONCLUSION: This EEG in awake, drowsy states, stage I sleep is within normal limits.
[2019-02-14 12:00] VITALS: BP 143/67
--- NOTE | 2019-02-14 13:04 | IPNPDOC ---
Date Seen The patient was seen on 02/14/19. Progress Note Pt seen and examined. Doing well today. Eating breakfast and feeling pretty good. Has been OOB to bathroom without SOB. Physical therapy going well. On exam, RUE is soft, incision c/d/i, HAIR output 10cc since yesterday and now has scant serosanguinous drainage. Right radial pulse 2+. Sensation and motor intact. Plan is to continue coumadin until goal INR and continue heparin gtt for now. High protein diet to help with wound healing. OOB and activity as tolerated. Still a bit anemic, and thus may not tolerate extensive activity, but ok to do what he feels up to doing. Elevate RUE when at rest and continue local wound care and HAIR management. VS, I&O, 24H, Fishbone Vital Signs/I&O Vital Signs Date Time Temp Pulse Resp B/P (MAP) Pulse Ox O2 Delivery O2 Flow Rate FiO2 02/14/19 12:00 99.0 76 18 143/67 (92) 98 02/11/19 20:15 2.0 02/11/19 16:10 35 02/10/19 20:50 Nasal Cannula I&O- Last 24 Hours up to 6 AM 02/14/19 09:00 Intake Total 3250 ml Output Total 3060 ml Balance 190 ml Laboratory Data 24H LABS Laboratory Tests 2 02/13/19 18:00: Activated Partial Thromboplast Time 72.6H 02/14/19 00:07: Activated Partial Thromboplast Time 100.7H 02/14/19 05:48: Activated Partial Thromboplast Time 111.7H, Prothrombin Time 15.3H, Prothromb Time International Ratio 1.19 02/14/19 09:16: Nucleated Red Blood Cells % (auto) 1.5H, Anion Gap 1L, Glomerular Filtration Rate > 60.0, Blood Urea Nitrogen 15, Creatinine 0.98, Sodium Level 140, Potassium Level 4.2, Chloride Level 110H, Carbon Dioxide Level 29, Calcium Level 8.4L CBC/BMP Laboratory Tests 02/14/19 09:16 Red Blood Count 2.41 L, Mean Corpuscular Volume 99.2 H, Mean Corpuscular Hemoglobin 33.2 H, Mean Corpuscular Hemoglobin Concent 33.5, Red Cell Distribution Width 17.0 H, Calcium Level 8.4 L Microbiology Microbiology 02/12/19 Stool Occult Blood (JANNETTE) - Final, Complete NICKI RAMIREZ MD February 14, 2019 13:04
[2019-02-14] MEDS: HEPARIN DRIP 25,000 UNITS in APPROPRIATE DILUENT 1 EA IV SCH (14:59)
[2019-02-14 15:40] VITALS: BP 136/63
[2019-02-14] MEDS ORDERED: WARFARIN SOD 5 MG TAB PO SCH (17:00)
[2019-02-14 18:00] LABS: HEMOGLOBIN 9.3 g/dl (13.5-17.5)
[2019-02-14 20:00] VITALS: BP 139/65
[2019-02-14] MEDS: SENNA 8.6 MG TAB (SENOKOT) PO SCH (20:07)
[2019-02-14] MEDS: diphenhydrAMINE 50 MG CAP PO PRN (20:07)
[2019-02-14 23:59] VITALS: BP 127/65
[2019-02-15] MEDS: PIPERACILLIN/TAZOBACTAM SOD 3.375 GM in D5W MINI-BAG PLUS 50 ML IV SCH ×4 (03:40→20:06)
[2019-02-15 04:00] VITALS: BP 130/67
[2019-02-15 05:39] LABS: HEMOGLOBIN 8.9 g/dl (13.5-17.5); MEAN CORPUSCULAR HEMOGLOBIN 31.3 pg (27.0-33.0); MEAN CORPUSCULAR VOLUME 95.1 fl (80.0-96.0); PLATELET COUNT, AUTOMATED 146 10^3/uL (150-450); RED BLOOD COUNT 2.84 10^6/uL (4.30-6.10); WHITE BLOOD COUNT 9.6 10^3/uL (4.0-10.0)
[2019-02-15 05:50] LABS: INR 2.33
[2019-02-15 05:56] LABS: ANISOCYTOSIS 2+; BASOPHILS 1 % (0-4); EOSINOPHILS 1 % (0-5); LYMPHOCYTES 28 % (16-52); METAMYELOCYTES 2 % (0-0); MONOCYTES 8 % (0-8); MYELOCYTES 1 % (0-0); NEUTROPHILS 58 % (35-75); PLATELET CLUMPS SMALL AMT; PLATELET ESTIMATE NORMAL (NORMAL); TOXIC GRANULATION 1+; TOXIC VACUOLATION 1+
[2019-02-15] MEDS: SODIUM CHLORIDE 0.9% INJ 10 ML SYR IV SCH ×2 (06:08→18:33)
[2019-02-15 08:00] VITALS: BP 167/79
[2019-02-15 08:19] LABS: BLOOD UREA NITROGEN 12 MG/DL (7-18); CALCIUM LEVEL 8.5 MG/DL (8.5-10.1); CARBON DIOXIDE LEVEL 26 MEQ/L (21-32); CHLORIDE LEVEL 111 MEQ/L (98-107); CREATININE FOR GFR 0.88 MG/DL (0.70-1.30); GLOMERULAR FILTRATION RATE > 60.0 (>56); GLUCOSE, FASTING 90 MG/DL (70-100); SODIUM LEVEL 142 MEQ/L (136-145)
--- NOTE | 2019-02-15 09:21 | IPNPDOC ---
Subjective Date Seen The patient was seen on 02/15/19. Subjective Chief Complaint/HPI Mr Huggins had another good night though he does have insomnia and has been having trouble sleeping. No acute issues overnight. hae has started working with PT . his arm swelling is improving. Denies any SOB , denies any chest pain or cough, no fever or chills. Telemtry did not show any arrhythmia. Objective Physical Examination General Exam: Positive: Alert, Cooperative, No Acute Distress Eye Exam: Positive: PERRLA, Conjunctiva & lids normal, EOMI ENT Exam: Positive: Atraumatic Neck Exam: Positive: Supple Chest Exam: Positive: Clear to auscultation, Normal air movement Heart Exam: Positive: Rate Normal, Bradycardic, Regular Rhythm, Normal S1, Normal S2; Negative: Irregular Rhythm, Gallops, Murmurs, Rubs Telemetry: Positive: No significant arrhythmia, Sinus, Bradycardia Abdomen Exam: Positive: Normal bowel sounds, Soft; Negative: Tenderness, Hepatospenomegaly, Hernia, Other Extremity Exam: Positive: Swelling (right arm , left calf), Other (right arm with large hematome with HAIR drain); Negative: Clubbing, Cyanosis, Edema Skin Exam: Positive: Other skin issue (large bruising and hematoma in darren whole right arm extending upto the axilla) Neuro Exam: Positive: Normal Speech, Strength at 5/5 X4 ext, Normal Tone Psych Exam: Positive: Mental status NL, Mood NL Assessment /Plan Assessment 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 Pt has no personal or family hx/o bleeding or clotting disorder. Lives active lifestyle. He did drive to [facility] over the spring break with 2 stops in between. And there they did a lot of walking. In the ER, pt was found to have extensive DVT on the Left leg and bilateral saddle pulmonary emboli. A STAT echo done in the ER and reported to ER by Dr. Hartmann: dilated LV, dilated IVC and elevated pulmonary artery pressure 64. Troponin is elevated at 2.91. Pt has no clinical signs of heart failure. Patient was admitted for Pulmonary emb olism and acute DVT. Recurrent vasovagal episodes probably precipitated by large amount of bleeding into the arm and pain Neurology consult appreciated. Suspicion for seizures is low. EEG is normal Right arm Large hematoma had evacuation of hematoma done on 02/10/19 and placement of a wound vac on 02/11/19 wound vac was removed and wound was closed over a HAIR drain. Minimal drainge from the drain now. Acute blood loss anemia due to bleeding into the right arm at the site of picc line in the context of being on alteplace and heparin. received 5 unit PRBC this admission HHb seems to be equilibrating. will need to take iron aftr discharge. Leucocytosis improving started empirically on antibiotics as high possibility of the hematoma area to get infected. will complete 5 days of antibiotics. Pati due to loss from the bleeding and poor oral intake resolved. Pulmonary embolism and acute DVT Hypercoagulable work up has been sent. seems to be unprovoked DVT S/p IVC filter on 02/09/19 followed by Intraclot catheter-guided thrombolysis started on 02/09/19 on heparin and alteplace infusion. Now only on heparin gtt and coumadin. INR jumped a lot after only 2 doses will reduce dose of coumadin to half. Will re check INR this evening if still therapeutic will dc heparin gtt. will be going home with coumadin. Acute pulmonary hypertension due to pulmonary embolism Elevated troponin due to right ventricular strain due to pulmonary embolism. now improved. DVT on heparin infusion and has ivc filter in place. Morbid obesity complicating care. Plan/VTE VTE Prophylaxis Ordered?: Yes VTE Exclusion Mechanical Proph: Patient on IV Heparin VTE Exclusion Pharmacological: IV Heparin Therapy VS, I&O, 24H, Fishbone Vital Signs/I&O Vital Signs Date Time Temp Pulse Resp B/P (MAP) Pulse Ox O2 Delivery O2 Flow Rate FiO2 02/15/19 08:00 98.0 70 18 167/79 (108) 95 02/11/19 20:15 2.0 02/11/19 16:10 35 02/10/19 20:50 Nasal Cannula I&O- Last 24 Hours up to 6 AM 02/15/19 06:00 Intake Total 1570 ml Output Total 1885 ml Balance -315 ml Laboratory Data 24H LABS Laboratory Tests 2 02/14/19 09:16: Nucleated Red Blood Cells % (auto) 1.5H, Anion Gap 1L, Glomerular Filtration Rate > 60.0, Blood Urea Nitrogen 15, Creatinine 0.98, Sodium Level 140, Potassium Level 4.2, Chloride Level 110H, Carbon Dioxide Level 29, Calcium Level 8.4L 02/14/19 13:37: Activated Partial Thromboplast Time 90.6H 02/14/19 20:05: Activated Partial Thromboplast Time 74.6H 02/15/19 05:10: Nucleated Red Blood Cells % (auto) 0.7H, Anion Gap 5L, Glomerular Filtration Rate > 60.0, Blood Urea Nitrogen 12, Creatinine 0.88, Sodium Level 142, Potassium Level 4.0, Chloride Level 111H, Carbon Dioxide Level 26, Calcium Level 8.5, Activated Partial Thromboplast Time 91.0H, Immature Granulocyte % (Auto) , Neutrophils 58, Band Neutrophils 1, Lymphocytes (Manual) 28, Monocytes (Manual) 8, Eosinophils (Manual) 1, Basophils (Manual) 1, Metamyelocytes 2H, Myelocytes 1H, Toxic Granulation 1+, Toxic Vacuolation 1+, Platelet Estimate NORMAL, Clumped Platelets SMALL AMT, Anisocytosis 2+, Prothrombin Time 26.0H, Prothromb Time International Ratio 2.33 CBC/BMP Laboratory Tests 02/14/19 09:16 Red Blood Count 2.41 L, Mean Corpuscular Volume 99.2 H, Mean Corpuscular Hemoglobin 33.2 H, Mean Corpuscular Hemoglobin Concent 33.5, Red Cell Distribution Width 17.0 H, Calcium Level 8.4 L 02/14/19 17:37 02/15/19 05:10 Red Blood Count 2.84 L, Mean Corpuscular Volume 95.1, Mean Corpuscular Hemoglobin 31.3, Mean Corpuscular Hemoglobin Concent 33.0, Red Cell Distribution Width 18.2 H, Calcium Level 8.5 Microbiology Microbiology 02/12/19 Stool Occult Blood (JANNETTE) - Final, Complete ALDEN SOSA MD February 15, 2019 09:21
[2019-02-15] MEDS: amLODIPine 5 MG TAB PO SCH (09:28)
[2019-02-15] MEDS: diphenhydrAMINE 50 MG CAP PO PRN ×2 (09:28→20:06)
[2019-02-15] MEDS: PANTOPRAZOLE 40MG TAB (PROTONIX) PO SCH ×2 (09:28→20:06)
[2019-02-15] MEDS: SERTRALINE HCL 50 MG TAB PO SCH (09:29)
[2019-02-15] MEDS: DOCUSATE SODIUM 100 MG CAP PO SCH ×2 (09:29→20:06)
[2019-02-15] MEDS: HEPARIN DRIP 25,000 UNITS in APPROPRIATE DILUENT 1 EA IV SCH (11:14)
[2019-02-15 12:00] VITALS: BP 127/63
[2019-02-15 16:00] VITALS: BP 151/79
[2019-02-15] MEDS ORDERED: WARFARIN SOD 5 MG TAB PO SCH (17:00)
--- NOTE | 2019-02-15 17:02 | IPNPDOC ---
Date Seen The patient was seen on 02/15/19. Progress Note Pt seen and examined. Doing well today. No c/o SOB. RUE feeling better. On exam, RUE is soft, incision c/d/i, minimal TTP, HAIR output scant serosanguinous drainage. Right radial pulse 2+. Sensation and motor intact. Plan is to continue coumadin until goal INR and continue heparin gtt for now. INR up to 2.3 this morning, and plan is to d/c heparin gtt when goal 2.5-3.5. Elevate RUE when at rest and continue local wound care and HAIR management. High protein diet to help with wound healing. Dr Nick to decide on HAIR d/c. OOB and activity as tolerated. Possibly home tomorrow if INR therapeutic, and he is able to ambulate safely. A-FIB/CHADSVASC A-FIB History Current/History of A-Fib/PAF?: No Current Oral Anticoagulant The: Yes VS, I&O, 24H, Fishbone Vital Signs/I&O Vital Signs Date Time Temp Pulse Resp B/P (MAP) Pulse Ox O2 Delivery O2 Flow Rate FiO2 02/15/19 09:28 150/66 02/15/19 08:00 98.0 70 18 95 02/11/19 20:15 2.0 02/11/19 16:10 35 02/10/19 20:50 Nasal Cannula I&O- Last 24 Hours up to 6 AM 02/15/19 06:00 Intake Total 1570 ml Output Total 1885 ml Balance -315 ml Laboratory Data 24H LABS Laboratory Tests 2 02/14/19 20:05: Activated Partial Thromboplast Time 74.6H 02/15/19 05:10: Activated Partial Thromboplast Time 91.0H, Immature Granulocyte % (Auto) , Nucleated Red Blood Cells % (auto) 0.7H, Neutrophils 58, Band Neutrophils 1, Lymphocytes (Manual) 28, Monocytes (Manual) 8, Eosinophils (Manual) 1, Basophils (Manual) 1, Metamyelocytes 2H, Myelocytes 1H, Toxic Granulation 1+, Toxic Vacuolation 1+, Platelet Estimate NORMAL, Clumped Platelets SMALL AMT, Anisocytosis 2+, Prothrombin Time 26.0H, Prothromb Time International Ratio 2.33, Anion Gap 5L, Glomerular Filtration Rate > 60.0, Blood Urea Nitrogen 12, Creatinine 0.88, Sodium Level 142, Potassium Level 4.0, Chloride Level 111H, Carbon Dioxide Level 26, Calcium Level 8.5 CBC/BMP Laboratory Tests 02/14/19 17:37 02/15/19 05:10 Red Blood Count 2.84 L, Mean Corpuscular Volume 95.1, Mean Corpuscular Hemoglobin 31.3, Mean Corpuscular Hemoglobin Concent 33.0, Red Cell Distribution Width 18.2 H, Calcium Level 8.5 Microbiology Microbiology 02/12/19 Stool Occult Blood (JANNETTE) - Final, Complete NICKI ARMIREZ MD February 15, 2019 17:02
[2019-02-15 17:39] LABS: INR 3.19; PROTHROMBIN TIME 33.4 SECONDS (12.1-14.4)
[2019-02-15 17:41] LABS: PARTIAL THROMBOPLASTIN TIME 85.9 SECONDS (25.4-37.6)
[2019-02-15 20:00] VITALS: BP 131/60
[2019-02-15] MEDS: SENNA 8.6 MG TAB (SENOKOT) PO SCH (20:06)
[2019-02-15 23:59] VITALS: BP 148/63
[2019-02-16] MEDS: PIPERACILLIN/TAZOBACTAM SOD 3.375 GM in D5W MINI-BAG PLUS 50 ML IV SCH ×4 (02:55→20:37)
[2019-02-16 04:00] VITALS: BP 133/70
[2019-02-16] MEDS: SODIUM CHLORIDE 0.9% INJ 10 ML SYR IV SCH ×2 (05:27→17:26)
[2019-02-16 05:36] LABS: BASO % 0.5 % (0.0-1.0); EOS # 0.2 10^3/uL (0.0-0.50); EOS % 2.3 % (0.0-3.0); HEMATOCRIT 29.6 % (42.0-52.0); HEMOGLOBIN 9.9 g/dl (13.5-17.5); LYMPH # 1.6 10^3/uL (1.5-4.5); LYMPH % 20.4 % (24.0-44.0); MEAN CORPUSCULAR HGB CONC 33.4 g/dl (32.0-36.5); MEAN CORPUSCULAR VOLUME 98.7 fl (80.0-96.0); MONO # 1.1 10^3/uL (0.0-0.8); MONO % 13.4 % (0.0-5.0); NEUTROPHILS # 4.7 10^3/uL (1.8-7.7); NEUTROPHILS % 59.7 % (36.0-66.0); PLATELET COUNT, AUTOMATED 154 10^3/uL (150-450); WHITE BLOOD COUNT 7.9 10^3/uL (4.0-10.0)
[2019-02-16 05:57] LABS: BLOOD UREA NITROGEN 13 MG/DL (7-18); CALCIUM LEVEL 8.7 MG/DL (8.5-10.1); CARBON DIOXIDE LEVEL 24 MEQ/L (21-32); CHLORIDE LEVEL 111 MEQ/L (98-107); CREATININE FOR GFR 0.94 MG/DL (0.70-1.30); GLOMERULAR FILTRATION RATE > 60.0 (>56); GLUCOSE, FASTING 92 MG/DL (70-100); POTASSIUM SERUM 4.1 MEQ/L (3.5-5.1); SODIUM LEVEL 141 MEQ/L (136-145)
[2019-02-16 05:58] LABS: INR 4.04; PROTHROMBIN TIME 40.3 SECONDS (12.1-14.4)
[2019-02-16 07:59] VITALS: BP 144/74
[2019-02-16] MEDS: DOCUSATE SODIUM 100 MG CAP PO SCH ×2 (09:38→20:38)
[2019-02-16] MEDS: PANTOPRAZOLE 40MG TAB (PROTONIX) PO SCH ×2 (09:38→20:37)
[2019-02-16] MEDS: SERTRALINE HCL 50 MG TAB PO SCH (09:39)
[2019-02-16] MEDS: amLODIPine 5 MG TAB PO SCH (09:39)
[2019-02-16 12:36] VITALS: BP 153/74
--- NOTE | 2019-02-16 13:25 | IPNPDOC ---
Date Seen The patient was seen on 02/16/19. Progress Note Subjective 53 Y male without significant PMH, admitted for PE/DVT doing much better no events overnight Objective Physical Examination General Exam: Positive: Alert, Cooperative, No Acute Distress Eye Exam: Positive: PERRLA, Conjunctiva & lids normal, EOMI ENT Exam: Positive: Atraumatic Neck Exam: Positive: Supple Chest Exam: Positive: Clear to auscultation, Normal air movement Heart Exam: Positive: Rate Normal, Bradycardic, Regular Rhythm, Normal S1, Normal S2; Negative: Irregular Rhythm, Gallops, Murmurs, Rubs Telemetry: Positive: No significant arrhythmia, Sinus, Bradycardia Abdomen Exam: Positive: Normal bowel sounds, Soft; Negative: Tenderness, Hepatospenomegaly, Hernia, Other Extremity Exam: Positive: right arm with large hematome with HAIR drain); Negative: Clubbing, Cyanosis, Edema Skin Exam: Positive: Other skin issue (large bruising and hematoma in darren whole right arm extending upto the axilla) Neuro Exam: non focal Psych Exam: no acute psychosis Assessment /Plan Assessment 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 Pt has no personal or family hx/o bleeding or clotting disorder. Lives active lifestyle. He did drive to [facility] over the spring break with 2 stops in between. And there they did a lot of walking. In the ER, pt was found to have extensive DVT on the Left leg and bilateral saddle pulmonary emboli. A STAT echo done in the ER and reported to ER by Dr. Hartmann: dilated LV, dilated IVC and elevated pulmonary artery pressure 64. Troponin is elevated at 2.91. Pt has no clinical signs of heart failure. Patient was admitted for Pulmonary embolism and acute DVT. 1. acute DVT and PE Hypercoagulable work up pending; S/p IVC filter on 02/09/19 followed by Intraclot catheter-guided thrombolysis started on 02/09/19 on heparin and alteplace infusion. Heparin gtt was discontinued yesterday INR is 4 toay and will hold Coumadin today 2. Right arm Large hematoma had evacuation of hematoma done on 02/10/19 and placement of a wound vac on 02/11/19 wound vac was removed and wound was closed over a HAIR drain. 3. Acute blood loss anemia due to bleeding into the right arm at the site of picc line in the context of being on alteplace and heparin. received 5 unit PRBC this admission HH stable so far 4. Pati, due to loss from the bleeding and poor oral intake, resolved 5. Elevated troponin due to right ventricular strain 6. Morbid obesity A-FIB/CHADSVASC A-FIB History Current/History of A-Fib/PAF?: No Current Oral Anticoagulant The: No VS, I&O, 24H, Fishbone Vital Signs/I&O Vital Signs Date Time Temp Pulse Resp B/P (MAP) Pulse Ox O2 Delivery O2 Flow Rate FiO2 02/16/19 12:36 98.5 61 20 153/74 (100) 99 02/11/19 20:15 2.0 02/11/19 16:10 35 02/10/19 20:50 Nasal Cannula I&O- Last 24 Hours up to 6 AM 02/16/19 06:00 Intake Total 1790 ml Output Total 1100 ml Balance 690 ml Laboratory Data 24H LABS Laboratory Tests 2 02/15/19 16:52: Prothrombin Time 33.4H, Prothromb Time International Ratio 3.19, Activated Partial Thromboplast Time 85.9H 02/16/19 05:17: Prothrombin Time 40.3H, Prothromb Time International Ratio 4.04, Immature Granulocyte % (Auto) 3.7H, White Blood Count 7.9, Red Blood Count 3.00L, Hemoglobin 9.9L, Hematocrit 29.6L, Mean Corpuscular Volume 98.7H, Mean Corpuscular Hemoglobin 33.0, Mean Corpuscular Hemoglobin Concent 33.4, Red Cell Distribution Width 18.2H, Platelet Count 154, Neutrophils (%) (Auto) 59.7, Lymphocytes (%) (Auto) 20.4L, Monocytes (%) (Auto) 13.4H, Eosinophils (%) (Auto) 2.3, Basophils (%) (Auto) 0.5, Neutrophils # (Auto) 4.7, Lymphocytes # (Auto) 1.6, Monocytes # (Auto) 1.1H, Eosinophils # (Auto) 0.2, Basophils # (Auto) 0.0, Nucleated Red Blood Cells % (auto) 0.3H, Anion Gap 6L, Glomerular Filtration Rate > 60.0, Blood Urea Nitrogen 13, Creatinine 0.94, Sodium Level 141, Potassium Level 4.1, Chloride Level 111H, Carbon Dioxide Level 24, Calcium Level 8.7 CBC/BMP Laboratory Tests 02/16/19 05:17 Red Blood Count 3.00 L, Mean Corpuscular Volume 98.7 H, Mean Corpuscular Hemoglobin 33.0, Mean Corpuscular Hemoglobin Concent 33.4, Red Cell Distribution Width 18.2 H, Neutrophils (%) (Auto) 59.7, Lymphocytes (%) (Auto) 20.4 L, Monocytes (%) (Auto) 13.4 H, Eosinophils (%) (Auto) 2.3, Basophils (%) (Auto) 0. 5, Neutrophils # (Auto) 4.7, Lymphocytes # (Auto) 1.6, Monocytes # (Auto) 1.1 H, Eosinophils # (Auto) 0.2, Basophils # (Auto) 0.0, Calcium Level 8.7 Microbiology Microbiology 02/12/19 Stool Occult Blood (JANNETTE) - Final, Complete YANET BHAKTA MD February 16, 2019 13:25
[2019-02-16 14:16] LABS: ANCA-ATYPICAL <1:20 titer (Neg:<1:20); ANTI THROMBIN 3 ANTIGEN IMMUNO 79 % (72-124); ANTI THROMBIN 3 FUNCT ACTIVITY 95 % (75-135); ANTINUCLEAR ANTIBODIES DIRECT Negative (Negative); CARDIOLIPIN IGA ANTIBODY <9 APL U/mL (0-11); CARDIOLIPIN IGG ANTIBODY <9 GPL U/mL (0-14); CARDIOLIPIN IGM ANTIBODY <9 MPL U/mL (0-12); CYTOPLASMIC NEUTROP AB ANCA-C <1:20 titer (Neg:<1:20); HOMOCYST(E)INE SERUM 10.3 umol/L (0.0-15.0); PERINUCLEAR AB ANCA-P <1:20 titer (Neg:<1:20); SJOGREN'S ANTI SS-A <0.2 AI (0.0-0.9); SJOGREN'S ANTI SS-B <0.2 AI (0.0-0.9)
--- NOTE | 2019-02-16 14:57 | IPNPDOC ---
Date Seen The patient was seen on 02/16/19. 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 Patient was admitted for Pulmonary embolism and acute DVT. Vascular Surgery was consulted for DVT/PE. RUE with HAIR drain intact with 60 mL drainage recorded past 24 hrs. The pt is feeling better, is OOB to chair and has ambulated in the hallways. PMHx: depression GERD PSHX: pineal cyst removal PE: GEN: 53yoM, appears stated age. HEENT: Normocephalic, atraumatic. Moist mucous membranes. CHEST: Regular rate and rhythm, +S1, +S2 LUNGS: Clear to auscultation bilaterally. No wheezes, rales, or rhonchi. Breathing appears symmetric and easy. ABD: Round, soft, non-tender, non-distended. +Bowel sounds throughout. No rebound or guarding. EXT: No lower extremity edema appreciated. SKIN: RUE bandaged with HAIR drain intact, sero sanguinous drainage noted. NEURO: Alert and oriented x 3. No focal deficits appreciated. 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 Patient was admitted for Pulmonary embolism and acute DVT. Vascular Surgery was consulted for DVT/PE. Pulmonary embolism and acute DVT. S/P IVC filter 02/09/19 followed by catheter- guided thrombolysis 02/09/[address] Nick. Hypercoagulable work up pending. Reviewed patient with Dr. Nick Coumadin held today, INR 4.04. Goal INR 2.5-3.5. Monitor PT/INR, standing order left in chart for discharge. FU in Dr Nick's office 5-7 days after discharge. Monitor. RUE hematoma S/P evacuation 02/10/19, S/P wound closure 02/11/19. HAIR drain intact. Dressing in place. Plan to d/c HAIR drain in AM. A-FIB/CHADSVASC A-FIB History Current/History of A-Fib/PAF?: No VS, I&O, 24H, Fishbonjeannette Vital Signs/I&O Vital Signs Date Time Temp Pulse Resp B/P (MAP) Pulse Ox O2 Delivery O2 Flow Rate FiO2 02/16/19 12:36 98.5 61 20 153/74 (100) 99 02/11/19 20:15 2.0 02/11/19 16:10 35 02/10/19 20:50 Nasal Cannula I&O- Last 24 Hours up to 6 AM 02/16/19 06:00 Intake Total 1790 ml Output Total 1100 ml Balance 690 ml Laboratory Data 24H LABS Laboratory Tests 2 02/15/19 16:52: Prothrombin Time 33.4H, Prothromb Time International Ratio 3.19, Activated Partial Thromboplast Time 85.9H 02/16/19 05:17: Prothrombin Time 40.3H, Prothromb Time International Ratio 4.04, Immature Granulocyte % (Auto) 3.7H, White Blood Count 7.9, Red Blood Count 3.00L, Hemoglobin 9.9L, Hematocrit 29.6L, Mean Corpuscular Volume 98.7H, Mean Corpuscular Hemoglobin 33.0, Mean Corpuscular Hemoglobin Concent 33.4, Red Cell Distribution Width 18.2H, Platelet Count 154, Neutrophils (%) (Auto) 59.7, Lymphocytes (%) (Auto) 20.4L, Monocytes (%) (Auto) 13.4H, Eosinophils (%) (Auto) 2.3, Basophils (%) (Auto) 0.5, Neutrophils # (Auto) 4.7, Lymphocytes # (Auto) 1.6, Monocytes # (Auto) 1.1H, Eosinophils # (Auto) 0.2, Basophils # (Auto) 0.0, Nucleated Red Blood Cells % (auto) 0.3H, Anion Gap 6L, Glomerular Filtration Rate > 60.0, Blood Urea Nitrogen 13, Creatinine 0.94, Sodium Level 141, Potassium Level 4.1, Chloride Level 111H, Carbon Dioxide Level 24, Calcium Level 8.7 CBC/BMP Laboratory Tests 02/16/19 05:17 Red Blood Count 3.00 L, Mean Corpuscular Volume 98.7 H, Mean Corpuscular H emoglobin 33.0, Mean Corpuscular Hemoglobin Concent 33.4, Red Cell Distribution Width 18.2 H, Neutrophils (%) (Auto) 59.7, Lymphocytes (%) (Auto) 20.4 L, Monocytes (%) (Auto) 13.4 H, Eosinophils (%) (Auto) 2.3, Basophils (%) (Auto) 0.5, Neutrophils # (Auto) 4.7, Lymphocytes # (Auto) 1.6, Monocytes # (Auto) 1.1 H, Eosinophils # (Auto) 0.2, Basophils # (Auto) 0.0, Calcium Level 8.7 Microbiology Microbiology 02/12/19 Stool Occult Blood (JANNETTE) - Final, Complete Ceci Serra February 16, 2019 14:57
[2019-02-16 16:10] VITALS: BP 166/79
[2019-02-16 20:00] VITALS: BP 148/78
[2019-02-16] MEDS: diphenhydrAMINE 50 MG CAP PO PRN (20:37)
[2019-02-16] MEDS: SENNA 8.6 MG TAB (SENOKOT) PO SCH (20:38)
[2019-02-17] VITALS: BP 132/71
[2019-02-17] MEDS: PIPERACILLIN/TAZOBACTAM SOD 3.375 GM in D5W MINI-BAG PLUS 50 ML IV SCH ×2 (03:50→09:00)
[2019-02-17 04:00] VITALS: BP 130/64
[2019-02-17] MEDS: SODIUM CHLORIDE 0.9% INJ 10 ML SYR IV SCH (05:08)
[2019-02-17 05:19] LABS: BASO % 0.5 % (0.0-1.0); EOS # 0.2 10^3/uL (0.0-0.50); EOS % 2.2 % (0.0-3.0); HEMATOCRIT 30.9 % (42.0-52.0); HEMOGLOBIN 10.3 g/dl (13.5-17.5); LYMPH # 1.5 10^3/uL (1.5-4.5); MEAN CORPUSCULAR HEMOGLOBIN 32.9 pg (27.0-33.0); MEAN CORPUSCULAR HGB CONC 33.3 g/dl (32.0-36.5); MEAN CORPUSCULAR VOLUME 98.7 fl (80.0-96.0); MONO # 1.1 10^3/uL (0.0-0.8); MONO % 13.1 % (0.0-5.0); NEUTROPHILS # 5.1 10^3/uL (1.8-7.7); NEUTROPHILS % 63.1 % (36.0-66.0); PLATELET COUNT, AUTOMATED 167 10^3/uL (150-450); RED BLOOD COUNT 3.13 10^6/uL (4.30-6.10); WHITE BLOOD COUNT 8.1 10^3/uL (4.0-10.0)
[2019-02-17 05:29] LABS: INR 2.72; PROTHROMBIN TIME 29.4 SECONDS (12.1-14.4)
[2019-02-17 05:36] LABS: BLOOD UREA NITROGEN 13 MG/DL (7-18); CALCIUM LEVEL 8.8 MG/DL (8.5-10.1); CARBON DIOXIDE LEVEL 24 MEQ/L (21-32); CHLORIDE LEVEL 108 MEQ/L (98-107); CREATININE FOR GFR 0.87 MG/DL (0.70-1.30); GLOMERULAR FILTRATION RATE > 60.0 (>56); GLUCOSE, FASTING 95 MG/DL (70-100); SODIUM LEVEL 140 MEQ/L (136-145)
[2019-02-17 08:00] VITALS: BP 150/68
[2019-02-17] MEDS ORDERED: AMLO5TAB6 PO (08:47)
[2019-02-17] MEDS: DOCUSATE SODIUM 100 MG CAP PO SCH (09:00)
--- NOTE | 2019-02-17 09:05 | IPNPDOC ---
Date Seen The patient was seen on 02/17/19. 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 Patient was admitted for Pulmonary embolism and acute DVT. Vascular Surgery was consulted for DVT/PE. RUE with HAIR drain intact with 60 mL drainage recorded past 24 hrs. The pt is feeling better, is OOB to chair and has ambulated in the hallways. Feels ready for DC today. No concerns. PMHx: depression GERD PSHX: pineal cyst removal PE: GEN: 53yoM, appears stated age. HEENT: Normocephalic, atraumatic. Moist mucous membranes. CHEST: Regular rate and rhythm, +S1, +S2 LUNGS: Clear to auscultation bilaterally. No wheezes, rales, or rhonchi. Breathing appears symmetric and easy. ABD: Round, soft, non-tender, non-distended. +Bowel sounds throughout. No rebound or guarding. EXT: No lower extremity edema appreciated. Diffuse ecchymosis of RUE, HAIR drain is removed this AM, sero sanguinous drainage noted. NEURO: Alert and oriented x 3. No focal deficits appreciated. 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 Patient was admitted for Pulmonary embolism and acute DVT. Vascular Surgery was consulted for DVT/PE. Pulmonary embolism and acute DVT. S/P IVC filter 02/09/19 followed by catheter-guided thrombolysis 02/09/[address] Nick. Hypercoagulable work up pending. Reviewed patient with Dr. Nick Coumadin 5 mg daily Goal INR 2.5-3.5. Monitor PT/INR, standing order left in chart for discharge. Plan for PT/INR saturday02/20/19. FU in Dr Nick's office 5-7 days after discharge. Monitor. RUE hematoma S/P evacuation 02/10/19, S/P wound closure 02/11/19. HAIR drain removed this AM, dry dressing in place. Keep area clean and dry. call office with any questions or concerns. A-FIB/CHADSVASC A-FIB History Current/History of A-Fib/PAF?: No VS, I&O, 24H, Fishbone Vital Signs/I&O Vital Signs Date Time Temp Pulse Resp B/P (MAP) Pulse Ox O2 Delivery O2 Flow Rate FiO2 02/17/19 08:00 98.3 80 18 150/68 (95) 98 02/11/19 20:15 2.0 02/11/19 16:10 35 I&O- Last 24 Hours up to 6 AM 02/17/19 06:00 Intake Total 1680 ml Output Total 410 ml Balance 1270 ml Laboratory Data 24H LABS Laboratory Tests 2 02/17/19 04:58: Immature Granulocyte % (Auto) 2.1, White Blood Count 8.1, Red Blood Count 3.13L, Hemoglobin 10.3L, Hematocrit 30.9L, Mean Corpuscular Volume 98.7H, Mean Kallie uscular Hemoglobin 32.9, Mean Corpuscular Hemoglobin Concent 33.3, Red Cell Distribution Width 17.8H, Platelet Count 167, Neutrophils (%) (Auto) 63.1, Lymphocytes (%) (Auto) 19.0L, Monocytes (%) (Auto) 13.1H, Eosinophils (%) (Auto) 2.2, Basophils (%) (Auto) 0.5, Neutrophils # (Auto) 5.1, Lymphocytes # (Auto) 1.5, Monocytes # (Auto) 1.1H, Eosinophils # (Auto) 0.2, Basophils # (Auto) 0.0, Nucleated Red Blood Cells % (auto) 0.0, Prothrombin Time 29.4H, Prothromb Time International Ratio 2.72 02/17/19 04:59: Anion Gap 8, Glomerular Filtration Rate > 60.0, Blood Urea Nitrogen 13, Creatinine 0.87, Sodium Level 140, Potassium Level 4.0, Chloride Level 108H, Carbon Dioxide Level 24, Calcium Level 8.8 CBC/BMP Laboratory Tests 02/17/19 04:58 Red Blood Count 3.13 L, Mean Corpuscular Volume 98.7 H, Mean Corpuscular Hemoglobin 32.9, Mean Corpuscular Hemoglobin Concent 33.3, Red Cell Distribution Width 17.8 H, Neutrophils (%) (Auto) 63.1, Lymphocytes (%) (Auto) 19.0 L, Monocytes (%) (Auto) 13.1 H, Eosinophils (%) (Auto) 2.2, Basophils (%) (Auto) 0.5, Neutrophils # (Auto) 5.1, Lymphocytes # (Auto) 1.5, Monocytes # (Auto) 1.1 H, Eosinophils # (Auto) 0.2, Basophils # (Auto) 0.0 02/17/19 04:59 Calcium Level 8.8 Microbiology Microbiology 02/12/19 Stool Occult Blood (JANNETTE) - Final, Complete Ceci Serra February 17, 2019 09:05
[2019-02-17] MEDS ORDERED: COUM1TAB17 PO (09:27)
[2019-02-17 09:55] VITALS: BP 150/68
[2019-02-17] MEDS: SERTRALINE HCL 50 MG TAB PO SCH (09:55)
[2019-02-17] MEDS: amLODIPine 5 MG TAB PO SCH (09:55)
[2019-02-17] MEDS: PANTOPRAZOLE 40MG TAB (PROTONIX) PO SCH (09:55)
--- NOTE | 2019-02-17 14:42 | DS.PDOC ---
Discharge Summary General Date of Admission February 08, 2019 at 20:49 Date of Discharge february 17, 2019 Attending Physician: YANET BHAKTA MD Specialist/Consultants Involve: Yohannes Nick MD Discharge Summary PROCEDURES PERFORMED DURING STAY: catheter guided thrombolysis and IVC filter placement; right arm hematoma evacuation ADMITTING DIAGNOSES: 1. acute PE and Left leg DVT DISCHARGE DIAGNOSES: acute PE and left leg DVT, s/p IVC filter placement acute blood loss anemia right arm hematoma HTN COMPLICATIONS/CHIEF COMPLAINT: Pulmonary Embolism. 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 Pt has no personal or family hx/o bleeding or clotting disorder. Lives active lifestyle. In the ER, pt was found to have extensive DVT on the eft leg and bilateral saddle pulmonary emboli. Interestingly, he has good BP, normal HR and normal O2 sat in RA. Pt denies chest pain, dizziness or syncope. A STAT echo done in the ER and reported to ER by Dr. Bowman: dilated LV, dilated IVC and elevated pulmonary artery pressure 64. Troponin is elevated at 2.91. Pt has no clinical signs of heart failure. HOSPITAL COURSE: He was started with heparin gtt from ER. Vascular surgeon Dr Nick was consulted and the patient underwent catheter guided thrombolysis and IVC filter placement. however, patient developed large hematoma in his right arm which required surgical evacuation and PJ drainage; he also received 3 units of PRBC transfusion for acute blood loss anemia; meanwhile, Coumadin was started. Now he is medically stable, he is not hypoxic or tachycardia, his right arm PJ drainage tube was removed today and His INR is therapeutic today and will go home with coumadin and follow with dr Nick in 1 week. DISCHARGE MEDICATIONS: Please see below. ALLERGIES: Please see below. PHYSICAL EXAMINATION ON DISCHARGE: VITAL SIGNS: Please see below. GENERAL: AA Ox3 HEENT: Atraumatic NECK: no JVD CARDIOVASCULAR EXAMINATION: S1S2 regular, no murmur RESPIRATORY EXAMINATION: clear, no wheezing, no rales ABDOMINAL EXAMINATION: soft BS +, non tenderness EXTREMITIES: edema, right arm hematoma surgical incisions stable SKIN: no rash NEUROLOGICAL EXAMINATION: non focal PSYCHIATRIC EXAMINATION: no acute psychosis LABORATORY DATA: Please see below. IMAGING: CTA of chest, legs doppler PROGNOSIS: fair ACTIVITY: [As tolerated]. DIET: regular DISCHARGE PLAN: will discharge on oral coumadin DISPOSITION: Home, Self-Care. ITEMS TO FOLLOWUP ON ON OUTPATIENT: 1. with Dr Nick in 1 week and check INR on Saturday with Dr Nick DISCHARGE CONDITION: [Stable]. TIME SPENT ON DISCHARGE: Greater than 40 minutes. Vital Signs/I&Os Vital Signs Date Time Temp Pulse Resp B/P (MAP) Pulse Ox O2 Delivery O2 Flow Rate FiO2 02/17/19 09:55 150/68 02/17/19 08:00 98.3 80 18 98 02/11/19 20:15 2.0 02/11/19 16:10 35 I&O- Last 24 Hours up to 6 AM 02/17/19 06:00 Intake Total 1680 ml Output Total 410 ml Balance 1270 ml Laboratory Data Labs 24H Laboratory Tests 2 02/17/19 04:58: Immature Granulocyte % (Auto) 2.1, White Blood Count 8.1, Red Blood Count 3.13L, Hemoglobin 10.3L, Hematocrit 30.9L, Mean Corpuscular Volume 98.7H, Mean Corpuscular Hemoglobin 32.9, Mean Corpuscular Hemoglobin Concent 33.3, Red Cell Distribution Width 17.8H, Platelet Count 167, Neutrophils (%) (Auto) 63.1, Lymphocytes (%) (Auto) 19.0L, Monocytes (%) (Auto) 13.1H, Eosinophils (%) (Auto) 2.2, Basophils (%) (Auto) 0.5, Neutrophils # (Auto) 5.1, Lymphocytes # (Auto) 1.5, Monocytes # (Auto) 1.1H, Eosinophils # (Auto) 0.2, Basophils # (Auto) 0.0, Nucleated Red Blood Cells % (auto) 0.0, Prothrombin Time 29.4H, Prothromb Time International Ratio 2.72 02/17/19 04:59: Anion Gap 8, Glomerular Filtration Rate > 60.0, Blood Urea Nitrogen 13, Creati nine 0.87, Sodium Level 140, Potassium Level 4.0, Chloride Level 108H, Carbon Dioxide Level 24, Calcium Level 8.8 CBC/BMP Laboratory Tests 02/17/19 04:58 Red Blood Count 3.13 L, Mean Corpuscular Volume 98.7 H, Mean Corpuscular Hemoglobin 32.9, Mean Corpuscular Hemoglobin Concent 33.3, Red Cell Distribution Width 17.8 H, Neutrophils (%) (Auto) 63.1, Lymphocytes (%) (Auto) 19.0 L, Monocytes (%) (Auto) 13.1 H, Eosinophils (%) (Auto) 2.2, Basophils (%) (Auto) 0.5, Neutrophils # (Auto) 5.1, Lymphocytes # (Auto) 1.5, Monocytes # (Auto) 1.1 H, Eosinophils # (Auto) 0.2, Basophils # (Auto) 0.0 02/17/19 04:59 Calcium Level 8.8 Microbiology Microbiology 02/12/19 Stool Occult Blood (JANNETTE) - Final, Complete Discharge Medications Scheduled Amlodipine Besylate (Amlodipine Besylate) 5 Mg Tablet, 5 MG PO DAILY Sertraline HCl (Sertraline HCl) 50 Mg Tab, 50 MG PO DAILY, (Reported) Warfarin Sodium (Coumadin) 5 Mg Tablet, 5 MG PO DAILY Scheduled PRN Acetaminophen/Diphenhydramine (Acetaminophen Pm Caplet) 1 Each Tablet, 2 TAB PO QHS PRN for SLEEP, (Reported) Esomeprazole Magnesium (Nexium 24Hr) 20 Mg Capsule.dr, 20 MG PO DAILY PRN for HEARTBURN, (Reported) Allergies Coded Allergies: phenobarbital (Verified Allergy, Unknown, as a child, 12/24/18) YANET BHAKTA MD February 17, 2019 14:42
--- NOTE | 2019-03-06 09:41 | REPIR ---
DATE OF PROCEDURE: 02/09/2019 ATTENDING SURGEON: Dr. Mikie Nick WHIZZER OPERATOR: Daksha Ricketts and Claudia Tavera PREOPERATIVE DIAGNOSES: Pulmonary embolus with cor pulmonale, left lower extremity deep vein thrombosis (DVT). POSTOPERATIVE DIAGNOSES: Pulmonary embolus with cor pulmonale, left lower extremity deep vein thrombosis (DVT). PROCEDURE: Ultrasound-guided right basilic vein cannulation, inferior vena cava filter placement, right basilic vein catheter placement with 48 cm dual-lumen PICC line with initiation of pulmonary thrombolysis. INDICATION: The patient is a 53-year-old male with cor pulmonale, pulmonary embolus and left lower extremity DVT who will undergo pulmonary thrombolysis and placement of an inferior vena cava filter. ANESTHESIA: Local with 20 mL. FLUORO TIME: 0.2 minutes. CONTRAST: None. COMPLICATIONS: None. DRAINS: None. SPECIMENS: None. IMPLANTS: Inferior vena cava filter. PROCEDURE: The patient was taken to the angiography suite, placed supine on the angiography room table and the right upper extremity was prepped and draped in a standard surgical fashion. Ultrasound was used to guide cannulation of the right basilic vein. A catheter was advanced into the inferior vena cava and inferior vena cava filter was placed at the L3-L4 lumbar interspace level. The catheter was then removed and a PICC line was placed with the tip in the superior vena cava right atrial junction and pulmonary thrombolysis was performed with initiation of a TPA bolus of 10 mg. Dressings were then applied. The patient tolerated the procedure well. All instrument, sponge, and needle counts were correct at the end the case. There were no complications. Dr. Nick was present for and directed the entire case. The patient was transferred to the intensive care unit (ICU) for pulmonary thrombolysis.
--- NOTE | 2019-03-06 09:52 | REPIR ---
DATE OF PROCEDURE: 02/09/2019 ATTENDING SURGEON: Dr. Zeke Nick ASSISTANTS: Daksha Delgado and Claudia Tavera PREOPERATIVE DIAGNOSES: Left lower extremity deep vein thrombosis (DVT). Pulmonary embolus with cor pulmonale. POSTOPERATIVE DIAGNOSES: Left lower extremity deep vein thrombosis (DVT). Pulmonary embolus with cor pulmonale. PROCEDURE: Ultrasound and fluoroscopic guided left basilic vein 15 cm midline catheter placement. INDICATION: The patient is a 53 old male with cor pulmonale and pulmonary embolus with a left lower extremity DVT who is undergoing pulmonary thrombolysis who requires access for blood draws and his medication instillation. ANESTHESIA: Local with 10 mL. FLUORO TIME: 0.1 minutes. CONTRAST: None. COMPLICATIONS: None. DRAINS: None. SPECIMENS: None. IMPLANTS: None. PROCEDURE: The patient was taken to the angiography suite, placed supine. The left upper extremity was prepped and draped in a standard surgical fashion. Left basilic vein was cannulated using ultrasound guidance and a midline catheter measuring 15 cm was placed in the left basilic vein with the tip noted to be in the axillary vein under fluoroscopic guidance. Both ports were aspirated and noted to aspirate easily and then flushed with heparinized saline. Dressings were then applied. The patient tolerated the procedure well. All instrument, sponge, and needle counts were correct at the end of the case. There were no complications. Dr. Nick was present for and directed the entire case. The patient was transferred to the ICU for pulmonary thrombolysis.
--- NOTE | 2019-03-06 12:30 | RO ---
DATE OF PROCEDURE: 02/11/2019 ATTENDING SURGEON: Dr. Zeke Nick ERECTOR OPERATOR: None. PREOPERATIVE DIAGNOSIS: Right upper extremity hematoma. POSTOPERATIVE DIAGNOSIS: Right upper extremity hematoma. PROCEDURE: Right upper extremity wound closure. ANESTHESIA: Local MAC. ESTIMATED BLOOD LOSS: 20 mL IV FLUIDS: 50 mL. YEUNG: 800 mL. COMPLICATIONS: None. DRAINS: None. SPECIMENS: None. PROCEDURE: The patient was taken to the operating room, placed supine on the operating table and prepped and draped in a standard surgical fashion. The right upper extremity wound from his previous wound hematoma evacuation was irrigated and then the wound was approximated using yajaira. Dressings were then applied. The patient tolerated procedure well. All instrument, sponge, and needle counts were correct at the end of case. There were no complications. Dr. Nick was present for and directed the entire case. The patient was transferred to holding area and subsequently to the floor in stable condition. edited: 03/11/2019 [id number] tkf MTDD
--- NOTE | 2019-03-06 12:31 | RO ---
DATE OF PROCEDURE: 02/10/2019 PREOPERATIVE DIAGNOSES: Right upper extremity hematoma, deep venous thrombosis (DVT), pulmonary embolism, cor pulmonale, right hand numbness. POSTOPERATIVE DIAGNOSES: Right upper extremity hematoma, DVT, pulmonary embolism, cor pulmonale, right hand numbness. PROCEDURE: Evacuation of right upper extremity hematoma. ATTENDING SURGEON: Dr. Zeke Nick SUPPORT SERVICES TECH: None. ANESTHESIA: Monitored anesthesia care (MAC). INDICATION: Patient is a 53-year-old male who developed hematoma in his right upper extremity while undergoing thrombolysis of his pulmonary embolus. Patient now has numbness, tingling in the right and will undergo evacuation of the hematoma. ESTIMATED BLOOD LOSS: 250 mL. INTRAVENOUS (IV) FLUIDS: 600 mL. HEPARIN: None. COMPLICATION: None. DRAINS: None. SPECIMENS: None. IMPLANTS: None. DESCRIPTION OF PROCEDURE: The patient was taken to the operating room, placed supine on the operating room table, and the right upper extremity was prepped and draped in a standard surgical fashion. Incision made over the area of the hematoma, which was evacuated. The brachial artery and brachial veins were evaluated and noted to have no injury or no bleeding. The wound was then closed using #2-0 Vicryl to approximate the deeper layers and yajaira to approximate the skin after a #10 Ezra-Awan (HAIR) was placed. Dressings were then applied. Patient tolerated the procedure well. All instrument, sponge, and needle counts were correct at end of the case. There were no complications. Dr. Nick was present for and directed the entire case. Patient was transferred to the holding area and subsequent to the floor in stable condition.
== END 2019-02-17 11:26 | disposition home or self-care (01) | DRG 252 ==
LOC: M ED 15:41 → M ED INP 20:49 → M ICU 23:00 → M PCU 02-13 15:28
PROVIDERS: ADMIT Internal Medicine; ATTEND Hospitalist
PROC: 06V03DZ Restriction of Inferior Vena Cava with Intraluminal Device, Percutaneous Approach (ICD-10-PCS; principal; 2019-02-09)
PROC: 05C90ZZ Extirpation of Matter from Right Brachial Vein, Open Approach (ICD-10-PCS; 2019-02-10)
PROC: 30233N1 Transfusion of Nonautologous Red Blood Cells into Peripheral Vein, Percutaneous Approach (ICD-10-PCS; 2019-02-11)
DX: I82.412 Acute embolism and thrombosis of left femoral vein (principal); I26.99 Other pulmonary embolism without acute cor pulmonale; D62 Acute posthemorrhagic anemia; I82.432 Acute embolism and thrombosis of left popliteal vein; I10 Essential (primary) hypertension; I27.20 Pulmonary hypertension, unspecified; K21.9 Gastro-esophageal reflux disease without esophagitis; F41.9 Anxiety disorder, unspecified; G47.33 Obstructive sleep apnea (adult) (pediatric); E66.01 Morbid (severe) obesity due to excess calories

== ENCOUNTER → 2019-02-20 | Outpatient (CLI) | payer OTHER ==
[~2019-02-20] MED LIST changes: +ACET25TA12 PO; +AMLO5TAB6 PO; +COUM1TAB17 PO; +NEXI20CA33 PO
[2019-02-20 10:13] LABS: INR 3.26
== END ==
LOC: M LAB 08:49
PROVIDERS: ATTEND Physician Assistant
DX: Z51.81 Encounter for therapeutic drug level monitoring (principal); Z79.01 Long term (current) use of anticoagulants; I26.99 Other pulmonary embolism without acute cor pulmonale; Z86.718 Personal history of other venous thrombosis and embolism

== ENCOUNTER → 2019-02-24 | Outpatient (CLI) | payer OTHER ==
[2019-02-24 12:21] LABS: INR 3.9; PROTHROMBIN TIME 39.2 SECONDS (12.1-14.4)
== END ==
LOC: M LAB 11:05
PROVIDERS: ATTEND Family Medicine
DX: I26.99 Other pulmonary embolism without acute cor pulmonale (principal); Z86.718 Personal history of other venous thrombosis and embolism

== ENCOUNTER → 2019-03-02 | Outpatient (REF) | payer OTHER ==
[2019-03-02 18:39] LABS: INR 3.54; PROTHROMBIN TIME 36.3 SECONDS (12.1-14.4)
== END ==
LOC: M LAB REF 17:07
PROVIDERS: ATTEND Family Medicine
DX: Z51.81 Encounter for therapeutic drug level monitoring (principal); Z79.01 Long term (current) use of anticoagulants

== ENCOUNTER → 2019-03-30 | Outpatient (CLI) | payer OTHER ==
--- NOTE | 2019-03-30 13:26 | REP ---
Clinical: Acute thrombus. Technique: Real time rubio scale and color Doppler evaluation using linear high frequency transducer. Comparison: 02/11/2019. Findings: Left lower extremity demonstrates occlusive thrombus extending from the distal superficial femoral vein through the popliteal vein and into the proximal calf which may be slightly increased from prior examination Right lower extremity appears normal and without evidence for deep venous thrombosis. Impression: Left lower extremity thrombus possibly increased from prior examination. Electronically Signed by Man Perla MD 03/30/2019 01:18 P
== END ==
LOC: M RAD 11:32
PROVIDERS: ATTEND Surgery Vascular Surgery
DX: I82.402 Acute embolism and thrombosis of unspecified deep veins of left lower extremity (principal); I26.09 Other pulmonary embolism with acute cor pulmonale

== ENCOUNTER → 2019-08-04 | Outpatient (CLI) | payer OTHER ==
[~2019-08-04] MED LIST changes: -SERT-155 PO; +SERT50TA29 PO
--- NOTE | 2019-08-05 06:51 | REP ---
Clinical: History of deep venous thrombosis. Technique: Real time rubio scale and color Doppler evaluation using linear high frequency transducer including reflux evaluation. Findings: Right lower extremity is normal and without evidence for thrombosis or reflux disease. Left lower extremity demonstrates nonocclusive chronic-appearing thrombus in the popliteal vein and no significant reflux. Impression: Small amount of chronic nonocclusive thrombus in the left popliteal vein. No significant reflux noted bilaterally. Electronically Signed by Man Perla MD 08/05/2019 06:44 A
== END ==
LOC: M RAD 07:32
PROVIDERS: ATTEND Physician Assistant
DX: I82.403 Acute embolism and thrombosis of unspecified deep veins of lower extremity, bilateral (principal)

== ENCOUNTER → 2020-09-28 | Outpatient (CLI) | payer OTHER ==
[~2020-09-28] MED LIST changes: +AMLO1TAB24 PO; -AMLO5TAB6 PO
--- NOTE | 2020-09-28 14:00 | REP ---
INDICATION: ACUTE EMBO AND THROM DEEP VEINS DANI LEGS COMPARISON: 08/04/2019 TECHNIQUE: Fernando scale and color Doppler evaluation right and left using linear high frequency transducer. FINDINGS: Right lower extremity is normal and without evidence for deep venous thrombosis. Left lower extremity demonstrates stable chronic nonocclusive thrombus in the popliteal vein and peroneal vein. IMPRESSION: 1. Chronic nonocclusive thrombus in the left and peroneal vein. 2. Normal right lower extremity without deep venous thrombosis. <Electronically signed by Man Perla > 09/28/20 [id number]
== END ==
LOC: M RAD 12:34
PROVIDERS: ATTEND Surgery Vascular Surgery
DX: I82.402 Acute embolism and thrombosis of unspecified deep veins of left lower extremity (principal)

== ENCOUNTER → 2021-02-14 | Outpatient (REF) | payer OTHER ==
[2021-02-14 12:29] LABS: INR 3.73; PROTHROMBIN TIME 37.8 SECONDS (12.5-14.3)
== END ==
LOC: M LAB REF 11:59
PROVIDERS: ATTEND Family Medicine
DX: Z86.718 Personal history of other venous thrombosis and embolism (principal); Z79.01 Long term (current) use of anticoagulants

== ENCOUNTER → 2022-03-28 | Outpatient (REF) | payer OTHER ==
[2022-03-28 13:00] LABS: INR 2.31; PARTIAL THROMBOPLASTIN TIME 34.8 SECONDS (25.9-37.0); PROTHROMBIN TIME 25.8 SECONDS (12.7-14.5)
== END ==
LOC: M LAB REF 12:04
PROVIDERS: ATTEND Family Medicine
DX: Z51.81 Encounter for therapeutic drug level monitoring (principal); Z79.01 Long term (current) use of anticoagulants

== ENCOUNTER → 2022-03-30 | Outpatient (CLI) | payer OTHER | LOC: M RAD 08:25 | PROVIDERS: ATTEND Family Medicine | DX: R94.5 Abnormal results of liver function studies (principal); K76.89 Other specified diseases of liver ==

== ENCOUNTER 2022-05-23 10:34 | Emergency (ER) | payer OTHER ==
[~2022-05-23] VITALS: Ht 177.8 cm; Wt 129.9 kg
[2022-05-23] MEDS ORDERED: ACETAMINOPHEN 500 MG TAB PO ONE (12:55)
[2022-05-23 13:16] VITALS: BP 174/95
== END 2022-05-23 13:22 | disposition home or self-care (01) ==
LOC: M ED 10:34
DX: I82.432 Acute embolism and thrombosis of left popliteal vein (principal); I10 Essential (primary) hypertension; Z86.711 Personal history of pulmonary embolism; Z86.718 Personal history of other venous thrombosis and embolism; Z79.01 Long term (current) use of anticoagulants; Z79.899 Other long term (current) drug therapy; Z88.8 Allergy status to other drugs, medicaments and biological substances

== ENCOUNTER → 2022-05-23 | Outpatient (CLI) | payer OTHER | LOC: M RAD 09:48 | PROVIDERS: ATTEND Physician Assistant | DX: I82.432 Acute embolism and thrombosis of left popliteal vein (principal) ==

== ENCOUNTER → 2023-02-04 | Outpatient (REF) | payer OTHER ==
[2023-02-04 17:21] LABS: FOLATE 11.9 NG/ML (>5.4)
== END ==
LOC: M LAB REF 16:24
PROVIDERS: ATTEND Family Medicine
DX: R74.01 Elevation of levels of liver transaminase levels (principal)

== ENCOUNTER 2024-07-06 06:38 | Emergency (ER) | payer OTHER ==
[2024-07-06] MEDS ORDERED: ELIQ5TAB (06:43)
[2024-07-06 09:21] LABS: BASO % 0.6 % (0.0-1.0); EOS % 0.4 % (0.0-3.0); HEMOGLOBIN 16.4 g/dl (13.5-17.5); LYMPH # 1.7 10^3/uL (1.5-5.0); LYMPH % 32.2 % (24.0-44.0); MEAN CORPUSCULAR HEMOGLOBIN 36.6 pg (27.0-33.0); MEAN CORPUSCULAR HGB CONC 34.9 g/dl (32.0-36.5); MEAN CORPUSCULAR VOLUME 104.9 fl (80.0-96.0); MONO # 0.8 10^3/uL (0.0-0.8); NEUTROPHILS # 2.8 10^3/uL (1.5-8.5); NEUTROPHILS % 52.6 % (36.0-66.0); PLATELET COUNT, AUTOMATED 165 10^3/uL (150-450); RED BLOOD COUNT 4.48 10^6/uL (4.30-6.10); WHITE BLOOD COUNT 5.3 10^3/uL (4.0-10.0)
[2024-07-06 09:48] LABS: INR 1.15; PARTIAL THROMBOPLASTIN TIME 28.7 SECONDS (24.8-34.2); PROTHROMBIN TIME 14.3 SECONDS (12.5-14.5)
[2024-07-06 09:51] LABS: BLOOD UREA NITROGEN 11 MG/DL (9-23); CALCIUM LEVEL 9.7 MG/DL (8.5-10.1); CARBON DIOXIDE LEVEL 27 MMOL/L (20-31); CHLORIDE LEVEL 106 MMOL/L (98-107); CREATININE FOR GFR 0.72 MG/DL (0.70-1.30); GLOMERULAR FILTRATION RATE > 60.0 (>56); GLUCOSE, FASTING 110 MG/DL (60-100); POTASSIUM SERUM 4.8 MMOL/L (3.5-5.1); SODIUM LEVEL 137 MMOL/L (136-145)
[2024-07-06 11:06] VITALS: BP 143/84; TEMP 98.1; O2SAT 97
== END 2024-07-06 11:26 | disposition home or self-care (01) ==
LOC: M ED 06:38
DX: R31.0 Gross hematuria (principal); K76.0 Fatty (change of) liver, not elsewhere classified; Z86.711 Personal history of pulmonary embolism; Z86.718 Personal history of other venous thrombosis and embolism; Z79.01 Long term (current) use of anticoagulants; Z79.899 Other long term (current) drug therapy; Z88.8 Allergy status to other drugs, medicaments and biological substances

== ENCOUNTER 2024-09-17 08:58 | Day surgery (SDC) | payer OTHER ==
[~2024-09-17] VITALS: Ht 180.3 cm; Wt 140.1 kg
[~2024-09-17 08:58] MED LIST changes: +ALBU8.5H; +ELIQ5TAB PO; +SEMA0.5P
[2024-09-17] MEDS ORDERED: propofoL 200 MG/20 ML VIAL As Ordered ONE (09:54)
[2024-09-17 10:15] VITALS: TEMP 98.6
[2024-09-17 10:30] VITALS: BP 135/67; O2SAT 96
== END 2024-09-17 10:34 | disposition home or self-care (01) ==
LOC: M OPP 08:58
PROVIDERS: ATTEND Surgery
DX: Z12.11 Encounter for screening for malignant neoplasm of colon (principal); K63.5 Polyp of colon; K57.30 Diverticulosis of large intestine without perforation or abscess without bleeding; I10 Essential (primary) hypertension; M19.90 Unspecified osteoarthritis, unspecified site; F41.9 Anxiety disorder, unspecified; F12.20 Cannabis dependence, uncomplicated; Z86.711 Personal history of pulmonary embolism; Z88.8 Allergy status to other drugs, medicaments and biological substances; Z79.01 Long term (current) use of anticoagulants; Z79.899 Other long term (current) drug therapy

== ENCOUNTER → 2024-10-06 | Outpatient (REF) | payer OTHER ==
[2024-10-06 14:24] LABS: FOLATE 17.8 NG/ML (>5.4)
== END ==
LOC: M LAB REF 12:18
PROVIDERS: ATTEND Family Medicine
DX: K76.0 Fatty (change of) liver, not elsewhere classified (principal)

== ENCOUNTER → 2024-10-12 | Outpatient (CLI) | payer OTHER | LOC: M RAD 13:08 | PROVIDERS: ATTEND Physician Assistant | DX: Z87.442 Personal history of urinary calculi (principal); Z95.828 Presence of other vascular implants and grafts ==

== ENCOUNTER → 2024-12-22 | Outpatient (CLI) | payer OTHER | LOC: M CARPUL 13:47 | PROVIDERS: ATTEND Family Medicine | DX: I71.21 Aneurysm of the ascending aorta, without rupture (principal) ==

== ENCOUNTER → 2025-06-30 | Outpatient (REF) | payer OTHER | LOC: M LABSMT 16:20 | PROVIDERS: ATTEND Physician Assistant | DX: R39.9 Unspecified symptoms and signs involving the genitourinary system (principal) ==

== ENCOUNTER → 2025-07-01 | Outpatient (REF) | payer OTHER ==
[2025-07-01 19:21] LABS: APPEARANCE, URINE HAZY (CLEAR); BACTERIA, URINE AUTO NEGATIVE (NEGATIVE); BILIRUBIN, URINE AUTO NEGATIVE (NEGATIVE); BLOOD, URINE BLOOD 2+ (NEGATIVE); CALCIUM OXALATE CRYSTALS MODERATE; GLUCOSE, URINE (UA) AUTO 2+ mg/dL (NEGATIVE); KETONE, URINE AUTO NEGATIVE (NEGATIVE); LEUKOCYTE ESTERASE, URINE AUTO NEGATIVE (NEGATIVE); MUCUS, URINE SMALL (NEGATIVE); NITRITE, URINE AUTO NEGATIVE (NEGATIVE); PROTEIN, URINE AUTO NEGATIVE (NEGATIVE); RBC, URINE AUTO 7 /HPF (0-3); SPECIFIC GRAVITY URINE AUTO 1.024 (1.002-1.035); SQUAMOUS EPITHELIAL CELL UR AU 0 /HPF (0-6); UROBILINOGEN, URINE AUTO 2.0 mg/dL (0.0-2.0); WBC, URINE AUTO 2 /HPF (0-3)
== END ==
LOC: M LAB REF 17:36
PROVIDERS: ATTEND Physician Assistant
DX: R39.9 Unspecified symptoms and signs involving the genitourinary system (principal)

== ENCOUNTER → 2025-07-19 | Outpatient (CLI) | payer OTHER | LOC: M PLAIMG 09:18 | PROVIDERS: ATTEND Physician Assistant | DX: N23 Unspecified renal colic (principal) ==

== ENCOUNTER 2025-07-30 15:16 | Emergency (ER) | payer OTHER ==
[~2025-07-30] VITALS: Ht 177.8 cm; Wt 141.0 kg
[~2025-07-30 15:16] MED LIST changes: -PRED10TA2 PO
[2025-07-30] MEDS ORDERED: PRED10TA2 PO (18:06)
[2025-07-30 18:20] VITALS: BP 146/77; TEMP 97.9; O2SAT 97
== END 2025-07-30 18:24 | disposition home or self-care (01) ==
LOC: M ED 15:16
DX: M25.561 Pain in right knee (principal); Z86.711 Personal history of pulmonary embolism; Z86.718 Personal history of other venous thrombosis and embolism; Z79.01 Long term (current) use of anticoagulants; Z79.899 Other long term (current) drug therapy; Z88.8 Allergy status to other drugs, medicaments and biological substances

== ENCOUNTER → 2025-07-30 | Outpatient (CLI) | payer OTHER ==
[~2025-07-30] MED LIST changes: +PRED10TA2 PO
[2025-07-30 18:01] LABS: BASO # 0.0 10^3/uL (0.0-0.2); BASO % 0.7 % (0.0-1.0); EOS # 0.0 10^3/uL (0.0-0.5); EOS % 0.5 % (0.0-3.0); LYMPH # 1.3 10^3/uL (1.5-5.0); LYMPH % 21.8 % (24.0-44.0); MONO # 0.8 10^3/uL (0.0-0.8); MONO % 13.6 % (2.0-8.0); NEUTROPHILS # 3.8 10^3/uL (1.5-8.5); NEUTROPHILS % 63.2 % (36.0-66.0); PLATELET COUNT, AUTOMATED 155 10^3/uL (150-450)
[2025-07-30 18:06] LABS: ALT/SGPT 50 U/L (7.0-40); AST/SGOT 66 U/L (<34); CALCIUM LEVEL 9.5 MG/DL (8.5-10.1); CARBON DIOXIDE LEVEL 26 MMOL/L (20-31); CHLORIDE LEVEL 109 MMOL/L (98-107); CHOLESTEROL LEVEL 172 MG/DL (<200); CHOLESTEROL RISK RATIO 5.91 (<5); CREATININE FOR GFR 0.62 MG/DL (0.70-1.30); GLOMERULAR FILTRATION RATE > 90.0 (>56); LDL CHOLESTEROL 123.9 MG/DL (<100); NON-HDL-C 142.9 MG/DL; POTASSIUM SERUM 4.9 MMOL/L (3.5-5.1); SODIUM LEVEL 144 MMOL/L (136-145); TRIGLYCERIDES LEVEL 95 MG/DL (<150)
[2025-07-30 19:13] LABS: ESTIMATED AVERAGE GLUCOSE 111.0 MG/DL (60-110)
== END ==
LOC: M WUC 14:58
PROVIDERS: ATTEND Family Medicine
DX: I10 Essential (primary) hypertension (principal); R73.03 Prediabetes